=== PATIENT | female | born 1945 ===

== ENCOUNTER 2019-11-29 18:18 | Inpatient (IN) | payer MEDICARE, BC ==
[2019-11-29 21:17] LABS: Glucose,Whole Blood 95 mg/dL (75-99)
--- NOTE | 2019-11-29 23:16 | XR ---
EXAMINATION TYPE: XR chest 1V portable DATE OF EXAM: 11/29/2019 COMPARISON: NONE HISTORY: Short of breath TECHNIQUE: FINDINGS: There is blunting of the costophrenic angles to a mild degree. There is mild infiltrate at the lung bases. Heart is borderline enlarged. There is mild pulmonary congestion. There are chest tawana ds. Bony thorax appears intact. IMPRESSION: Changes in the chest could relate to mild congestive heart failure.
[2019-11-29] MEDS ORDERED: NALOXONE 0.4 MG/ML 1 ML VIAL IV PRN (23:17)
[2019-11-29] MEDS ORDERED: ACETAMINOPHEN TAB 325 MG TAB PO PRN (23:17)
--- NOTE | 2019-11-29 23:56 | P.HPIM ---
History of Present Illness H&P Date: 11/29/19 Chief Complaint: cough SOB I was wearing full PPE during this encounter including N95 mask, face shield, double gloves, gown, and head cover. i maintained 6 feet distance with the patient who verbalized understanding about these precautionary measures. except for during my physical exam where i had to be close to the patient. 74-year-old female with hypertension controlled with medications, mild COPD with occasional use of inhalers not on home oxygen, paroxysmal A. fib on Xarelto Patient is a transfer from [facility] due to necessity as a relief hospital Seems like patient had symptoms for 2-3 weeks now started with coughing headaches and loss of taste sensation patient lives alone. She was tested positive for Covid 10 days ago however yesterday she did not feel well at home and went to the hospital for evaluation she was found to be hypoxic with oxygen saturation in the 80s and had to be started on supplemental oxygen her oxygen requirement was increasing and currently she is on a non breather Patient symptoms consisted of dry cough and shortness of breath. Reported headaches and loss of taste sensation. But denies any body aches denies any fevers denies any chills denies any diarrhea denies any chest pain denies any nausea or vomiting. Patient denies any traveling. Patient denies any recent hospitalization. Patient denies any contact with known Covid patient's. Patient had paperwork sent from [facility] physician to physician transfer was done with Dr. Pat. Pertinent labs are as follows White count 4.4, with lymphopenia 0.7 Hemoglobin 13.3 Platelets 227 Magnesium 2.2 Renal function and liver function unremarkable Pro calcitonin is normal 0.1 Troponins negative C-reactive protein 122 elevated LDH elevated 547 Ferritin elevated 723 Creatine kinase 156 Lactic acid 1.6 Chest x-ray showed bilateral infiltrates in the lower lobes suggestive of atypical pneumonia, with slight obliteration of the costophrenic angles more on the right compared to the left Patient was given Z-Sami and Plaquenil at [facility] Review of Systems Pertinent positives as noted in HPI. All other systems were reviewed and are negative Medications and Allergies Home Medications Medication Instructions Recorded Confirmed Type Aspirin [Adult Low Dose Aspirin EC] 81 mg PO DAILY 11/29/19 11/29/19 History Hydrochlorothiazide 12.5 mg PO DAILY 11/29/19 11/29/19 History Hydroxychloroquine Sulfate 200 mg PO BID 11/29/19 11/29/19 History [Plaquenil] Levothyroxine Sodium 100 mcg PO DAILY 11/29/19 11/29/19 History Ondansetron Odt [Zofran ODT] 8 mg SL Q8H PRN 11/29/19 11/29/19 History Rivaroxaban [Xarelto] 20 mg PO DAILY 11/29/19 11/29/19 History Simvastatin 60 mg PO HS 11/29/19 11/29/19 History Tiotropium Br/Olodaterol HCl 2 puff INHALATION RT-DAILY 11/29/19 11/29/19 History [Stiolto Respimat Inhal [place]] Allergies Allergy/AdvReac Type Severity Reaction Status Date / Time No Known Allergies Allergy Unverified 11/29/19 21:47 Physical Exam Constitutional: No acute distress, conversant, pleasant, currently on nonrebreather Eyes: Anicteric sclerae, moist conjunctiva, Pupils equal round reactive to light ENMT: NC/AT Oropharynx clear, no erythema, or exudates Neck: Supple, FROM, no masses, or JVD Lungs: Good breath sounds bilaterally slightly diminished at lung bases no wheezing or rhonchi Clear to percussion Normal respiratory effort, no accessory muscle use Cardiovascular: Heart regular in rate and rhythm, No murmurs, gallops, or rubs No peripheral edema Abdominal: Soft Nontender, no guarding, rebound or rigidity Abdomen moving with respiration Normoactive bowel sounds No palpable mass No abdominal wall hernia noted Skin: Normal temperature, tone, texture, turgor No induration No subcutaneous nodules No rash, lesions No ulcers Extremities: No digital cyanosis No clubbing Pedal pulses intact and symmetrical Radial pulses intact and symmetrical No calf tenderness Psychiatric: Alert and oriented to person, place and time Appropriate affect fair judgement Neuro Muscles Strength 5/5 in all 4 extremities Sensation to light touch grossly present throughout Cranial nerves II-XII grossly intact No focal sensory deficits Lymphatics: no palpable cervical or supraclavicular , or inguinal lymph nodes Assessment and Plan Assessment: 74-year-old female with controlled hypertension, paroxysmal A. fib on Xarelto, mild COPD uses inhaler as needed occasionally, not on home oxygen. Patient is a transfer from [facility] due to necessity as a relief hospital. Patient tested positive for Covid, patient is admitted to the hospital due to increased oxygen requirement for close monitoring. Patient was started on Pl aquenil and azithromycin at [facility] Admitted to the inpatient with anticipated length of stay more than 2 midnights Plan: acute hypoxic respiratory failure 2/2 viral pneumonia acute viral pneumonia COVID positive chronic conditions P. afib on xarelto COPD , stable hypertension controlled plan monitor closely in ICU supplemental oxygen as needed to keep O2 >92% avoid NIPPV plaquinel zinc PO tylenol for fever D dimer for COVID prognostic evaluation labs reflecting, lymphopenia, elevated Ferritin, CRP, LDH normal PCT, trops avoid azithromycin if QTc >500 resume home meds no IVF , keep patient on negative balance resume HCTZ Preformed a thorough record review from recent hospitalization aat [facility] as in HPI CODE STATUS:full code DVT prophylaxis: on xarelto Discussed with: Patient, ER, RN Anticipated length of stay > than [address]: home A total of 60 minutes was spent on the care of this complex patient more than 50% of the time was spent in counseling and care coordination.
[2019-11-30] MEDS ORDERED: BENZONATATE 100 MG CAP PO PRN (00:30)
[2019-11-30] MEDS ORDERED: FUROSEMIDE 10 MG/ML 2 ML VIAL IV ONE (00:44)
[2019-11-30 05:32] LABS: Basophils % (A) 1 %; Eosinophils % (A) 0 %; HCT 39.3 % (34.0-46.0); HGB 12.6 gm/dL (11.4-16.0); Lymphocytes # (A) 0.6 k/uL (1.0-4.8); Lymphocytes % (A) 12 %; MCH 29.5 pg (25.0-35.0); MCHC 32.2 g/dL (31.0-37.0); MCV 91.7 fL (80.0-100.0); Mean Platelet Volume 8.9; Monocytes # (A) 0.2 k/uL (0-1.0); Monocytes % (A) 4 %; Neutrophils # (A) 3.8 k/uL (1.3-7.7); Neutrophils % (A) 80 %; Platelet Count 231 k/uL (150-450); RBC 4.29 m/uL (3.80-5.40); RDW 13.1 % (11.5-15.5); WBC 4.8 k/uL (3.8-10.6)
[2019-11-30 05:48] LABS: Calcium 9.1 mg/dL (8.4-10.2); Potassium 3.2 mmol/L (3.5-5.1)
[2019-11-30 06:01] LABS: C Reactive Protein 146.6 mg/L (<10.0)
[2019-11-30] MEDS ORDERED: Potassium Replacement Protocol 1 EACH MISC MISCELLANE PRN (06:20)
[2019-11-30] MEDS: LEVOTHYROXINE 100 MCG TAB PO SCH (06:48)
[2019-11-30] MEDS: POTASSIUM CHLORIDE ER 20 MEQ TAB.ER PO SCH ×2 (06:48→09:28)
[2019-11-30] MEDS ORDERED: ALBUTEROL INHALER 60 PUFF/8 GM INHALER (BULK) INHALATION PRN (07:43)
--- NOTE | 2019-11-30 07:50 | XR ---
EXAMINATION TYPE: XR chest 1V portable DATE OF EXAM: 11/30/2019 Comparison: 11/29/2019 Clinical History: 74-year-old female SOB Findings: The heart is normal size. Continued bibasilar and retrocardiac opacities and background mild intersti tial density. Impression: Overall stable exam, mild diffuse interstitial density and bibasilar infiltrates.
[2019-11-30] MEDS ORDERED: IPRATROPIUM 0.5 MG/2.5 ML NEBU INHALATION SCH (08:00)
[2019-11-30] MEDS ORDERED: FORMOTEROL FUMARATE 20 MCG/2 ML NEBU INHALATION SCH (08:00)
[2019-11-30] MEDS ORDERED: ALBUTEROL INHALER 60 PUFF/8 GM INHALER (BULK) INHALATION SCH (08:00)
[2019-11-30] MEDS ORDERED: HYDROCHLOROTHIAZIDE 12.5 MG CAP PO SCH (09:00)
[2019-11-30] MEDS: SYMBICORT 160-4.5 MCG INHALER INHALATION SCH ×2 (09:25→20:29)
[2019-11-30] MEDS: ASPIRIN 81 MG PO SCH (09:28)
[2019-11-30] MEDS: RIVAROXABAN 20 MG TAB PO SCH (09:28)
[2019-11-30] MEDS: HYDROXYCHLOROQUINE SULFATE 200 MG TAB PO SCH ×2 (09:28→22:00)
[2019-11-30] MEDS: ZINC SULFATE 220 MG CAP PO SCH (09:28)
--- NOTE | 2019-11-30 13:13 | P.CNPUL ---
History of Present Illness Consult date: 11/30/19 Reason for consult: pneumonia History of present illness: This is a 74-year-old -[place] female patient who lives in [place]. The patient has history of atrial fibrillation and she has been maintained on Xarelto on long-term basis. The patient felt febrile and had increased cough approximately a week ago. She end up going to [facility] where she was tested and she was confirmed to have positive: 19 infection. The patient was discharged home. However, as the patient became more short of breath and her cough that is worse, the patient presented to ED department at [facility] where she was evaluated and she was placed on high flow oxygen because of her ongoing hypoxemia. The patient's pulse ox apparently was in the low 80s and she was given supplemental oxygen including 100% nonrebreather facemask. The patient got transferred to us for further monitoring and treatment. The patient's white cell count was at 4.4 at time of admission and the patient had a lymphopenia with a lymphocyte level of 0.7. Hemoglobin was at 13.3. Platelet count was 222, LFTs are unremarkable, the troponin was negative, CRP was 122, LDH was 548, ferritin level was 723, CPK was 156 and the lactic acid level was 1.6. Chest x-ray showed bilateral pulmonary infiltrates interstitial changes bilaterally right more than left more so in the lung bases bilaterally. Clinically, despite hypoxemia, the patient seems to be quite stable and she is struggling with her breathing. She is not using some ecchymosis of breathing. She is currently on high flow oxygen at 10 L in addition to 100% on a beta facemasks and pulse ox is around 87-90%. No nausea. No vomiting. No altered mentation. No chest pain. Her cardiac rhythm is still in atrial fibrillation. The patient was started on Plaquenil. She is an ex- smoker. She has history of COPD and she has been maintained on Stiolto on outpatient basis. Review of Systems Constitutional: Reports fever (Currently afebrile and the patient is been afebrile for the past 48 hours), Reports lethargy Eyes: denies as per HPI, denies blurred vision, denies bulging eye, denies decreased vision, denies diplopia, denies discharge, denies dry eye, denies irritation, denies itching, denies pain, denies photophobia, denies loss of peripheral vision, denies loss of vision, denies tunnel vision/blind spots Ears: deny: decreased hearing, ear discharge, earache, tinnitus Ears, nose, mouth and throat: Reports as per HPI Breasts: absent: as per HPI, change in shape, gynecomastia, masses, nipple discharge, pain, skin changes, swelling Cardiovascular: Reports decreased exercise tolerance, Reports dyspnea on exert ion Respiratory: Reports cough, Reports dyspnea Gastrointestinal: Denies abdominal pain, Denies diarrhea, Denies nausea, Denies vomiting Genitourinary: Reports as per HPI Menstruation: Reports as per HPI Musculoskeletal: Reports as per HPI Musculoskeletal: absent: ankle pain, ankle stiffness, ankle swelling Integumentary: Reports as per HPI Neurological: Reports as per HPI Psychiatric: Reports as per HPI Endocrine: Reports as per HPI Hematologic/Lymphatic: Reports as per HPI Allergic/Immunologic: Reports as per HPI Past Medical History Past Medical History: Atrial Fibrillation, COPD, Hypertension History of Any Multi-Drug Resistant Organisms: None Reported Past Surgical History: Hysterectomy, Orthopedic Surgery Additional Past Surgical History / Comment(s): Hand surgery 2005, ASD colsure x2 2007/2012, bilat cataracts removed 2015,thryoid biopsy 2016, thyroidectomy 2018 Smoking Status: Former smoker Medications and Allergies Home Medications Medication Instructions Recorded Confirmed Type Aspirin [Adult Low Dose Aspirin EC] 81 mg PO DAILY 11/29/19 11/29/19 History Hydrochlorothiazide 12.5 mg PO DAILY 11/29/19 11/29/19 History Hydroxychloroquine Sulfate 200 mg PO BID 11/29/19 11/29/19 History [Plaquenil] Levothyroxine Sodium 100 mcg PO DAILY 11/29/19 11/29/19 History Ondansetron Odt [Zofran ODT] 8 mg SL Q8H PRN 11/29/19 11/29/19 History Rivaroxaban [Xarelto] 20 mg PO DAILY 11/29/19 11/29/19 History Simvastatin 60 mg PO HS 11/29/19 11/29/19 History Tiotropium Br/Olodaterol HCl 2 puff INHALATION RT-DAILY 11/29/19 11/29/19 History [Stiolto Respimat Inhal [place]] Allergies Allergy/AdvReac Type Severity Reaction Status Date / Time losartan [From Cozaar] Allergy Rash/Hives Verified 11/30/19 06:40 Physical Exam Vitals: Vital Signs Temp Pulse Resp BP Pulse Ox 11/30/19 07:00 82 18 135/68 96 11/30/19 06:00 87 16 124/62 91 L 11/30/19 05:00 89 16 124/62 93 L 11/30/19 04:00 98.6 F 80 20 104/76 95 11/30/19 03:00 82 17 133/63 97 11/30/19 02:00 82 18 132/56 95 11/30/19 01:00 85 20 118/59 93 L 11/30/19 00:00 98.5 F 82 15 130/61 95 11/29/19 23:00 82 16 128/62 96 11/29/19 22:00 98 18 119/72 91 L 11/29/19 21:55 98.8 F 91 16 119/72 93 L Intake and Output 11/29/19 11/30/19 11/30/19 22:59 06:59 14:59 Output Total 0 570 0 Balance 0 -570 0 Output: Urine 0 570 0 Other: Weight 69.4 kg 69.3 kg Gen. appearance currently the patient 100% nonrebreather facemask and addition to high flow oxygen, nonacute distress Head exam was generally normal. There was no scleral icterus or corneal arcus. Mucous membranes were moist. Neck was supple and without jugular venous distension, thyromegaly, or carotid bruits. Carotids were easily palpable bilaterally. There was no adenopathy. Lungs sounds are diminished and there is crackles at lung bases bilaterally. No wheezes or rhonchi. Cardiac exam revealed the PMI to be normally situated and sized. The rhythm was regular and no extrasystoles were noted during several minutes of auscultation. The first and second heart sounds were normal and the rhythm is irregular consistent with atrial fibrillation and physiologic splitting of the second heart sound was noted. There were no murmurs, rubs, clicks, or gallops. Abdominal exam revealed normal bowel sounds. The abdomen was soft, non-tender, and without masses, organomegaly, or appreciable enlargement of the abdominal aorta. Examination of the extremities revealed easily palpable radial, femoral and pedal pulses. There was no cyanosis, clubbing or edema. Examination of the skin revealed no evidence of significant rashes, suspicious appearing nevi or other concerning lesions. Neurologically the patient is awake and alert and there is no focal neurological deficit and she is able to answer questions appropriately. Results - Laboratory Findings CBC and BMP: 11/30/19 04:58 11/30/19 04:58 PT/INR, D-dimer D-Dimer 1.09 mg/L FEU (<0.60) H 11/30/19 04:58 Abnormal lab findings: Abnormal Labs 11/30/19 11/30/19 11/30/19 04:58 04:58 04:58 Lymphocytes # 0.6 L D-Dimer 1.09 H Potassium 3.2 L Carbon Dioxide 31 H BUN 24 H Lactate Dehydrogenase 1370 H C-Reactive Protein 146.6 H - Diagnostic Findings Chest x-ray: image reviewed Assessment and Plan Plan: 1 acute bilateral COVID 19 pneumonia with secondary ARDS 2 acute hypoxic respiratory failure currently on high-flow oxygen in addition to 100% nonrebreather facemask with a pulse ox achieving above 88% 3 COPD 4 chronic atrial fibrillation 5 hypertension Plan The patient has symptomatic Covid 19 pneumonia with secondary signs of ARDS. The patient will be kept in intensive care unit. The patient was kept on 100% nonrebreather facemask and addition to high flow oxygen. We will do some prone positioning on this patient to improve her oxygenation. We'll be asking this patient to be laying down on her abdomen and monitor oxygenation. Continue Plaquenil. Continue monitoring the fever pattern, LDH, C-reactive protein and the d-dimer was slightly elevated. Replace potassium. Will avoid noninvasive positive pressure ventilation for now. We'll use Ventolin HFA as needed and use Symbicort as maintenance regarding her COPD. Resume outpatient medications. May ultimately required intubation mechanical ventilation at a later stage. We'll monitor her condition very closely. Her condition is critical for now.
[2019-11-30] MEDS ORDERED: PROPOFOL 10 MG/ML 20 ML VIAL IV ONE (19:30)
[2019-11-30] MEDS ORDERED: SUCCINYLCHOLINE CHLORIDE VIAL 200 MG/10 ML VIAL IV ONE (19:30)
[2019-11-30] MEDS: PROPOFOL 1,000 MG in EMPTY BAG 1 BAG IV SCH ×2 (19:35→22:06)
[2019-11-30] MEDS ORDERED: SODIUM CHLORIDE 0.9% 1,000 ML IV ONE (19:58)
[2019-11-30] MEDS ORDERED: CISATRACURIUM 2 MG/ML 5 ML VIAL IV ONE (19:58)
--- NOTE | 2019-11-30 20:11 | XR ---
EXAMINATION TYPE: XR chest 1V portable DATE OF EXAM: 11/30/2019 COMPARISON: 11/30/2019 INDICATION: Intubation difficulty breathing TECHNIQUE: Single frontal view of the chest is obtained. FINDINGS: The heart size is normal. The pulmonary vasculature is normal. There is increasing lung infiltrates in the mid and lower left lung field. Right basilar infiltrate h as slight improvement. The patient has been intubated, the tip of the endotracheal tube is in the proximal right bronchus. T his should be pulled back 4 cm. Report was called to telephone to [facility] ICU at the time of reportin g. Nasogastric tube has been placed the tip in the left upper quadrant of the abdomen. IMPRESSION: 1. Endotracheal tube placement with the tip in the proximal right bronchus at the sanjay. This should be pulled back 4 cm. ICU was notified at the time of reporting. 2. Worsening left lower lung field infiltrate. Right lower lobe infiltrate has some improvement. Find ings can be related to intubation and follow-up exam following repositioning of the endotracheal tube could be performed.
--- NOTE | 2019-11-30 20:19 | P.PN ---
Subjective Progress Note Date: 11/30/19 (delayed charting seen at 1130) Principal diagnosis: shortness of breath Patient is a 74-year-old -[place] female with a past medical history of hypertension, mild COPD, and paroxysmal atrial fibrillation on Xarelto who presented to [facility] emergency department with complaints of coughing, headache, and shortness of breath. She was transferred here due to the covert r elief effort. Initial evaluation consistent with atypical or viral pneumonia with probable covert 19. She had testing done at [facility] which was positive for COVID-19. She was started on Actonel, zinc, and as needed Tylenol. Pulmonary was consulted. Patient seen and examined at bedside. She is still feeling significantly short of breath. She denies significant cough. No nausea, vomiting, or diarrhea. No chest pain. Feeling very fatigued and tired today. Objective - Vital Signs Vital signs: Vital Signs Temp 99.9 F H 11/30/19 16:00 Pulse 89 11/30/19 18:00 Resp 22 11/30/19 18:00 BP 104/58 11/30/19 18:00 Pulse Ox 94 L 11/30/19 18:00 Intake & Output 11/30/19 11/30/19 12/01/19 06:59 18:59 06:59 Output Total 570 0 Balance -570 0 Weight 69.3 kg 69.3 kg Output: Urine 570 0 Other: Voiding Method Bedpan # Voids 0 # Bowel Movements 1 - Exam General: Ill appearing, mild distress, appears at stated age Derm: warm, dry Head: atraumatic, normocephalic, symmetric Eyes: EOMI, no lid lag, anicteric sclera Mouth: no lip lesion, mucus membranes moist Cardiovascular: S1S2 reg, no murmur, positive posterior tibial pulse bilateral, Lungs: Coarse breath sounds bilaterally without active wheezing, 3 word conversational dyspnea, accessory muscle use Abdominal: soft, nontender to palpation, no guarding, no appreciable org anomegaly Ext: no gross muscle atrophy, no edema, no contractures Neuro: CN II-XI grossly intact, no focal neuro deficits Psych: Alert, oriented, appropriate affect - Labs CBC & Chem 7: 11/30/19 04:58 11/30/19 04:58 Labs: Abnormal Lab Results - Last 24 Hours (Table) 11/30/19 11/30/19 11/30/19 Range/Units 04:58 04:58 04:58 Lymphocytes # 0.6 L (1.0-4.8) k/uL D-Dimer 1.09 H (<0.60) mg/L FEU Potassium 3.2 L (3.5-5.1) mmol/L Carbon Dioxide 31 H (22-30) mmol/L BUN 24 H (7-17) mg/dL Lactate Dehydrogenase 1370 H (313-618) U/L C-Reactive Protein 146.6 H (<10.0) mg/L Assessment and Plan Assessment: Bilateral pneumonia secondary to coated with ARDS and acute hypoxic respiratory failure -Continue with Plaquenil, Zithromax -Symbicort, albuterol inhaler -Continue with supplemental O2, I suspect this patient likely will end up with intubation -Follow d-dimer, LDH, CRP, CK, and troponin -Follow chest x-ray until clear -Pulmonary critical care recommendations appreciated -Follow QT interval Hypothyroidism -Synthroid Hypertension, controlled -Hydrochlorothiazide -Follow blood pressures Paroxysmal atrial fibrillation -Not on rate controlling medications -Continue with Xarelto COPD without acute exacerbation -Bronchodilators -Consider steroids if condition worsens Dyslipidemia -Statin therapy DVT prophylaxis: Xarelto Discussed with: PAtient Anticipated discharge: 5-[address]: [facility] A total of 35 minutes was spent on the care of this complex patient more than 50% of the time was spent in counseling and care coordination.
[2019-11-30] MEDS: NOREPINEPHRINE 4 MG in SODIUM CHLORIDE 0.9% 250 ML IV SCH (20:20)
[2019-11-30] MEDS: fentaNYL (PF) 1,000 MCG in SODIUM CHLORIDE 0.9% 80 ML IV SCH (20:20)
[2019-11-30 20:41] LABS: ABG Base Excess 1.4 mmol/L; ABG HCO3 24 mmol/L (21-25); ABG PCO2 28 mmHg (35-45); ABG PH 7.54 (7.35-7.45); ABG PO2 211 mmHg (83-108); ABG TCO2 25 mmol/L (19-24); Allen Test Performed? Yes
[2019-11-30] MEDS ORDERED: ATORVASTATIN 10 MG TAB PO SCH (21:00)
[2019-11-30] MEDS ORDERED: CISATRACURIUM 2 MG/ML 5 ML VIAL IV PRN (21:16)
[2019-11-30] MEDS: SODIUM CHLORIDE 0.9% 1,000 ML IV SCH (21:30)
[2019-11-30] MEDS: CHLORHEXIDINE GLUCONATE 15 ML CUP MUCOUS MEM SCH (22:00)
[2019-11-30 23:08] LABS: Potassium 3.9 mmol/L (3.5-5.1)
--- NOTE | 2019-11-30 23:17 | P.CONS ---
History of Present Illness - Reason for Consult Consult date: 11/30/19 COVID19 pneumonia Requesting physician: Dimitris Singleton - Chief Complaint shortness of breath and cough x days - History of Present Illness Patient is a 74-year-old female with a past medical significant for COPD paroxysmal A. fib presented to [facility] with chief complaints of coughing headache loss of the sensation symptom has been going on for about 2 to 3 weeks currently the patient tested positive for cocaine and intended to go however the day before presentation the hospital patient went to the hospital because of feeling short of breath she was noticed to be hypoxic with O2 sats in the 80s patient required supplemental oxygen on a nonrebreather patient also complaining of a dry cough moderate intensity no sputum production no chest pain no nausea no vomiting no abdominal pain or any diarrhea because of the symptom patient has been transferred to this facility for ICU care and management of underlying COVID-19 pneumonia patient did have a chest x-ray done at the outside facility showed bilateral infiltrate lower lobe suggestive of atypical pneumonia chest x-ray repeated here left-sided shows a change related to congestive heart failure with bilateral infiltrate patient has been running low-grade fever of 99.9 and she has been satting 89 to 98% on 100% nonrebreather patient did have a normal white count but looks leukopenic with a lymphocytic count of 0.6 LDH 1370 CRP 146.6 patient has been continued on Plaquenil and infectious disease was consulted for further recommendation about antibiotic therapy. Review of Systems Positive point has been mentioned in HPI rest of the systems are negative Past Medical History Past Medical History: Atrial Fibrillation, COPD, Hypertension History of Any Multi-Drug Resistant Organisms: None Reported Past Surgical History: Hysterectomy, Orthopedic Surgery Additional Past Surgical History / Comment(s): Hand surgery 2005, ASD colsure x2 , bilat cataracts removed 2015,thryoid biopsy 2016, thyroidectomy 2018 Smoking Status: Former smoker Medications and Allergies Home Medications Medication Instructions Recorded Confirmed Type Aspirin [Adult Low Dose Aspirin EC] 81 mg PO DAILY 11/29/19 11/29/19 History Hydrochlorothiazide 12.5 mg PO DAILY 11/29/19 11/29/19 History Hydroxychloroquine Sulfate 200 mg PO BID 11/29/19 11/29/19 History [Plaquenil] Levothyroxine Sodium 100 mcg PO DAILY 11/29/19 11/29/19 History Ondansetron Odt [Zofran ODT] 8 mg SL Q8H PRN 11/29/19 11/29/19 History Rivaroxaban [Xarelto] 20 mg PO DAILY 11/29/19 11/29/19 History Simvastatin 60 mg PO HS 11/29/19 11/29/19 History Tiotropium Br/Olodaterol HCl 2 puff INHALATION RT-DAILY 11/29/19 11/29/19 History [Stiolto Respimat Inhal [place]] Allergies Allergy/AdvReac Type Severity Reaction Status Date / Time losartan [From [facility]] Allergy Rash/Hives Verified 11/30/19 06:40 Physical Exam Vitals: Vital Signs Temp Pulse Resp BP Pulse Ox 11/30/19 14:00 91 15 91 L 11/30/19 13:00 90 22 96 11/30/19 12:00 99.4 F 89 25 H 121/82 89 L 11/30/19 11:00 86 23 99/80 99 11/30/19 10:00 98 24 126/75 87 L 11/30/19 09:00 102 H 24 124/68 82 L 11/30/19 08:00 99.0 F 83 22 123/65 96 11/30/19 07:00 82 18 135/68 96 11/30/19 06:00 87 16 124/62 91 L 11/30/19 05:00 89 16 124/62 93 L 11/30/19 04:00 98.6 F 80 20 104/76 95 11/30/19 03:00 82 17 133/63 97 11/30/19 02:00 82 18 132/56 95 11/30/19 01:00 85 20 118/59 93 L 11/30/19 00:00 98.5 F 82 15 130/61 95 11/29/19 23:00 82 16 128/62 96 11/29/19 22:00 98 18 119/72 91 L 11/29/19 21:55 98.8 F 91 16 119/72 93 L Intake and Output 11/30/19 11/30/19 11/30/19 06:59 14:59 22:59 Output Total 570 0 Balance -570 0 Output: Urine 570 0 Other: Voiding Method Bedpan # Voids 1 # Bowel Movements 1 Weight 69.3 kg 69.3 kg GENERAL DESCRIPTION: Elderly female lying in bed, no distress. No tachypnea or accessory muscle of respiration use. HEENT: Shows Pallor , no scleral icterus. Oral mucous membrane is dry. NECK: Trachea central, no thyromegaly. LUNGS: Unlabored breathing. Decreased intensity of breath sounds. No wheeze or crackle. HEART: S1, S2, regular rate and rhythm. ABDOMEN: Soft, no tenderness , guarding or rigidity EXTREMITIES: No edema of feet. SKIN: No rash, no masses palpable. NEUROLOGICAL: The patient is awake, alert, oriented x3, mood and affect normal. Results CBC & Chem 7: 11/30/19 04:58 11/30/19 22:22 Labs: Abnormal Lab Results - Last 24 Hours (Table) 11/30/19 11/30/19 11/30/19 Range/Units 04:58 04:58 04:58 Lymphocytes # 0.6 L (1.0-4.8) k/uL D-Dimer 1.09 H (<0.60) mg/L FEU Potassium 3.2 L (3.5-5.1) mmol/L Carbon Dioxide 31 H (22-30) mmol/L BUN 24 H (7-17) mg/dL Lactate Dehydrogenase 1370 H (313-618) U/L C-Reactive Protein 146.6 H (<10.0) mg/L Assessment and Plan Assessment: 1-patient with acute COVID-19 her pneumonia in this patient who did have evidence of bilateral infiltrate did have hypoxemia cough lymphopenia elevated LDH and CRP not currently same getting worse over the last few days and did have a positive test about 10 days ago concern for impending respiratory failure (1) COVID-19 Current Visit: Yes Status: Acute Code(s): U07.1 - COVID-19 SNOMED Code(s): 808007356 Plan: 1-patient continued on Plaquenil 200 mg twice a day to finish a total of 5-day course of therapy 2-may benefit from a low-dose steroid to prevent full-blown ARDS 3-continue with respiratory support and droplet isolation We will follow on clinical condition and cultures to further adjust medication if needed Thank you for this consultation we will follow the patient along with you Time with Patient: Greater than 30
[2019-12-01 00:30] LABS: Appearance,Urine Cloudy (Clear); Bacteria,Urine Few /hpf; Bilirubin,Urine Negative (Negative); Blood,Urine Small (Negative); Cellular Casts,Urine 1 /lpf (0); Color,Urine Yellow; Glucose,Urine (UA) Negative (Negative); Hyaline Casts,Urine 9 /lpf (0-2); Ketones,Urine 1+ (Negative); Leukocyte Esterase,Urine Small (Negative); Mucus,Urine Occasional /hpf; Nitrite,Urine Negative (Negative); PH, Urine 6.5 (5.0-8.0); Protein,Urine 2+ (Negative); RBC,Urine 23 /hpf (0-5); Specific Gravity,Urine 1.023 (1.001-1.035); Squamous Epithelial Cell,Urine 3 /hpf (0-4); WBC,Urine 29 /hpf (0-5)
[2019-12-01] MEDS: PROPOFOL 1,000 MG in EMPTY BAG 1 BAG IV SCH ×7 (01:32→20:19)
[2019-12-01 02:18] LABS: Glucose,Whole Blood 104 mg/dL (75-99)
[2019-12-01 05:10] LABS: ABG Base Excess -1.7 mmol/L; ABG HCO3 24 mmol/L (21-25); ABG Oxygen Saturation 95.3 % (94-97); ABG PCO2 42 mmHg (35-45); ABG PH 7.36 (7.35-7.45); ABG PO2 82 mmHg (83-108); ABG TCO2 25 mmol/L (19-24); Allen Test Performed? Yes
[2019-12-01 05:22] LABS: Basophils % (A) 0 %; Eosinophils % (A) 0 %; HCT 36.7 % (34.0-46.0); HGB 11.6 gm/dL (11.4-16.0); Lymphocytes # (A) 0.4 k/uL (1.0-4.8); Lymphocytes % (A) 7 %; MCH 29.3 pg (25.0-35.0); MCHC 31.5 g/dL (31.0-37.0); MCV 92.8 fL (80.0-100.0); Mean Platelet Volume 8.8; Monocytes # (A) 0.3 k/uL (0-1.0); Monocytes % (A) 4 %; Neutrophils # (A) 5.8 k/uL (1.3-7.7); Neutrophils % (A) 86 %; Platelet Count 269 k/uL (150-450); RBC 3.96 m/uL (3.80-5.40); RDW 13.4 % (11.5-15.5); WBC 6.8 k/uL (3.8-10.6)
[2019-12-01 05:56] LABS: Albumin 3.1 g/dL (3.5-5.0); Calcium 8.3 mg/dL (8.4-10.2); Potassium 3.5 mmol/L (3.5-5.1); Total Bilirubin 0.9 mg/dL (0.2-1.3); Total Protein 6.3 g/dL (6.3-8.2)
[2019-12-01] MEDS: fentaNYL (PF) 1,000 MCG in SODIUM CHLORIDE 0.9% 80 ML IV SCH ×3 (06:11→20:38)
[2019-12-01] MEDS: LEVOTHYROXINE 100 MCG TAB PO SCH (06:12)
[2019-12-01] MEDS: POTASSIUM BICARBONATE/CIT AC 20 MEQ TABLET.EFF NG-TUBE SCH ×2 (06:27→08:29)
--- NOTE | 2019-12-01 07:46 | XR ---
EXAMINATION TYPE: XR chest 1V portable DATE OF EXAM: 12/01/2019 Comparison: 11/30/2019 Clinical History: 74-year-old female Tube placement Findings: ET tube is satisfactory. NG tube sidehole is just below the GE junction level and could be further ad vanced by 2 to 3 cm further into the stomach. Findings medium interstitial densities in the mid to lo wer lungs persist. No pleural effusion. Impression: Interstitial infiltrates persist in the mid and lower lungs. Consider advancement of the NG tube by 2 to 3 cm further into the stomach.
[2019-12-01] MEDS: SYMBICORT 160-4.5 MCG INHALER INHALATION SCH (08:03)
[2019-12-01] MEDS: ASPIRIN 81 MG PO SCH (08:29)
[2019-12-01] MEDS: HYDROXYCHLOROQUINE SULFATE 200 MG TAB PO SCH ×2 (08:29→20:33)
[2019-12-01] MEDS: CHLORHEXIDINE GLUCONATE 15 ML CUP MUCOUS MEM SCH ×2 (08:29→20:18)
[2019-12-01] MEDS: ZINC SULFATE 220 MG CAP PO SCH (08:29)
[2019-12-01] MEDS: RIVAROXABAN 20 MG TAB PO SCH (08:29)
--- NOTE | 2019-12-01 11:45 | XR ---
EXAMINATION TYPE: XR chest 1V portable DATE OF EXAM: 12/01/2019 COMPARISON: 12/01/2019 HISTORY: Central line placement TECHNIQUE: Single frontal view of the chest is obtained. FINDINGS: Left-sided central line has been placed from a subclavian approach terminating in the supe rior cavoatrial junction, appropriately placed. Endotracheal tube and enteric tube appear satisfactor y in position. Bibasilar interstitial airspace disease is redemonstrated with biapical lucency. Cardi a mediastinal silhouette is stable. Diffuse osseous demineralization. IMPRESSION: 1. Interval insertion of an appropriately placed left subclavian approach central venous catheter ter minating in the distal able atrial junction. 2. Unchanged bibasilar reticular interstitial opacities.
[2019-12-01] MEDS ORDERED: SODIUM CHLORIDE 0.9% 500 ML 500 ML IV ONE (14:21)
[2019-12-01] MEDS: SODIUM CHLORIDE 0.9% 1,000 ML IV SCH (14:23)
--- NOTE | 2019-12-01 15:02 | P.PN ---
Subjective Progress Note Date: 12/01/19 This is a 74-year-old -[place] female patient who lives in [place]. The patient has history of atrial fibrillation and she has been maintained on Xarelto on long-term basis. The patient felt febrile and had increased cough approximately a week ago. She end up going to [facility] where she was tested and she was confirmed to have positive: 19 infection. The patient was discharged home. However, as the patient became more short of breath and her cough that is worse, the patient presented to ED department at [facility] where she was evaluated and she was placed on high flow oxygen because of her ongoing hypoxemia. The patient's pulse ox apparently was in the low 80s and she was given supplemental oxygen including 100% nonrebreather facemask. The patient got transferred to us for further monitoring and treatment. The patient's white cell count was at 4.4 at time of admission and the patient had a lymphopenia with a lymphocyte level of 0.7. Hemoglobin was at 13.3. Platelet count was 222, LFTs are unremarkable, the troponin was negative, CRP was 122, LDH was 548, ferritin level was 723, CPK was 156 and the lactic acid level was 1.6. Chest x-ray showed bilateral pulmonary infiltrates interstitial changes bilaterally right more than left more so in the lung bases bilaterally. Clinically, despite hypoxemia, the patient seems to be quite stable and she is struggling with her breathing. She is not using some ecchymosis of breathing. She is currently on high flow oxygen at 10 L in addition to 100% on a beta facemasks and pulse ox is around 87-90%. No nausea. No vomiting. No altered mentation. No chest pain. Her cardiac rhythm is still in atrial fibrillation. The patient was started on Plaquenil. She is an ex- smoker. She has history of COPD and she has been maintained on Stiolto on outpatient basis. On 12/01/2019 and seeing this patient for a follow-up. As mentioned earlier the patient was Hospital as for an acute Covid 19 pneumonia. The patient was on 100% nonrebreather facemask. Yesterday evening, the patient's condition de compensated. As such, the patient had to be intubated and placed on a mechanical ventilator. This was done by [facility] and intubation process was successful. This morning the patient is being seen for a follow-up. The patient currently is on assist-control mode rate of 20 with tidal volume of 350 and FiO2 of 40% with a PEEP of 15. The patient is on propofol which is running at 75 g per KG pigmented and fentanyl drip is running in 1 g per KG per hour. Levothroid has also be used at a dose of 0.04 g per KG pigmented for hemodynamic support. The patient will be started on enteral feeding for nutrition support. Do not lung cancer and a triple-lumen cath was also inserted. Note that the patient is afebrile today. The patient had a T-max of 99.9. The LDH still elevated at 1140. The d-dimer is at 1.19. Blood gases from today shows a pH of 7.36 with a pCO2 of 42 and pO2 of 82. Chest x-ray shows interval insertion of the ET tube and there is bilateral basilar reticular nodular infiltrates and some increased infiltration of the upper lobes bilaterally. The patient's net fluid balance is +1.8 L over the past 24 hours. She'll be started on enteral feeding for nutritional support. She is already on a combination of zinc sulfate and Plaquenil. She was also maintained on antico agulation with Xarelto regarding her chronic atrial fibrillation. Objective - Vital Signs Vital signs: Vital Signs Temp 98.1 F 12/01/19 12:00 Pulse 94 12/01/19 13:00 Resp 21 12/01/19 13:00 BP 95/63 12/01/19 13:00 Pulse Ox 97 12/01/19 13:00 Intake & Output 11/30/19 12/01/19 12/01/19 18:59 06:59 18:59 Intake Total 2171.439 631.618 Output Total 0 325 120 Balance 0 1846.439 511.618 Weight 69.3 kg 72.4 kg 72.4 kg Intake: IV 1750 375 Sodium Chloride 0.9% 1, 750 375 000 ml @ 75 mls/hr IV . [id number] [facility] Rx#:[id number] Sodium Chloride 0.9% 1, 1000 000 ml @ 999 mls/hr IV . Q1H1M [facility] Rx#:[id number] Intake, IV Titration 421.439 256.618 Amount Norepinephrine 4 mg In 96.767 Sodium Chloride 0.9% 250 ml @ 0.05 MCG/KG/MIN 13. 202 mls/hr IV .[id number] [facility] Rx#:[id number] Propofol 1,000 mg In 256.411 256.618 Empty Bag 1 bag @ Titrate IV .Q0M [facility] Rx#: [id number] fentaNYL (PF) 1,000 mcg 68.261 In Sodium Chloride 0.9% 80 ml @ 1 MCG/KG/HR 6.93 mls/hr IV .[id number] [facility] Rx #:[id number] Output: Urine 0 325 120 Other: Voiding Method Bedpan Indwelling Catheter Indwelling Catheter # Voids 0 # Bowel Movements 1 - Exam Gen. appearance currently the patient is calm comfortable not to this is intubated on a mechanical ventilator. Orogastric and orotracheal tube are both in place. The patient has a left subclavian triple catheter in place. Head exam was generally normal. There was no scleral icterus or corneal arcus. Mucous membranes were moist. Neck was supple and without jugular venous distension, thyromegaly, or carotid bruits. Carotids were easily palpable bilaterally. There was no adenopathy. Lungs sounds are diminished and there is crackles at lung bases bilaterally. No wheezes or rhonchi. Cardiac exam revealed the PMI to be normally situated and sized. The rhythm was regular and no extrasystoles were noted during several minutes of auscultation. The first and second heart sounds were normal and the rhythm is irregular consistent with atrial fibrillation and physiologic splitting of the second heart sound was noted. There were no murmurs, rubs, clicks, or gallops. Abdominal exam revealed normal bowel sounds. The abdomen was soft, non-tender, and without masses, organomegaly, or appreciable enlargement of the abdominal aorta. Examination of the extremities revealed easily palpable radial, femoral and pedal pulses. There was no cyanosis, clubbing or edema. Examination of the skin revealed no evidence of significant rashes, suspicious appearing nevi or other concerning lesions. Neurologically the patient is well sedated and calm and comfortable and she withdraws to painful stimulation. - Labs CBC & Chem 7: 12/01/19 04:46 12/01/19 04:46 Labs: Abnormal Lab Results - Last 24 Hours (Table) 11/29/19 11/30/19 12/01/19 Range/Units 23:30 20:39 02:16 Lymphocytes # (1.0-4.8) k/uL D-Dimer (<0.60) mg/L FEU ABG pH 7.54 H (7.35-7.45) ABG pCO2 28 L (35-45) mmHg ABG pO2 211 H (83-108) mmHg ABG Total CO2 25 H (19-24) mmol/L ABG O2 Saturation 100.0 H (94-97) % BUN (7-17) mg/dL Glucose (74-99) mg/dL POC Glucose (mg/dL) 104 H (75-99) mg/dL Calcium (8.4-10.2) mg/dL AST (14-36) U/L Lactate Dehydrogenase (313-618) U/L Albumin (3.5-5.0) g/dL Urine Appearance Cloudy H (Clear) Urine Protein 2+ H (Negative) Urine Ketones 1+ H (Negative) Urine Blood Small H (Negative) Ur Leukocyte Esterase Small H (Negative) Urine RBC 23 H (0-5) /hpf Urine WBC 29 H (0-5) /hpf Urine Bacteria Few H (None) /hpf Hyaline Casts 9 H (0-2) /lpf Urine Mucus Occasional H (None) /hpf 12/01/19 12/01/19 12/01/19 Range/Units 04:46 04:46 04:46 Lymphocytes # 0.4 L (1.0-4.8) k/uL D-Dimer 1.19 H (<0.60) mg/L FEU ABG pH (7.35-7.45) ABG pCO2 (35-45) mmHg ABG pO2 (83-108) mmHg ABG Total CO2 (19-24) mmol/L ABG O2 Saturation (94-97) % BUN 27 H (7-17) mg/dL Glucose 105 H (74-99) mg/dL POC Glucose (mg/dL) (75-99) mg/dL Calcium 8.3 L (8.4-10.2) mg/dL AST 49 H (14-36) U/L Lactate Dehydrogenase 1140 H (313-618) U/L Albumin 3.1 L (3.5-5.0) g/dL Urine Appearance (Clear) Urine Protein (Negative) Urine Ketones (Negative) Urine Blood (Negative) Ur Leukocyte Esterase (Negative) Urine RBC (0-5) /hpf Urine WBC (0-5) /hpf Urine Bacteria (None) /hpf Hyaline Casts (0-2) /lpf Urine Mucus (None) /hpf 12/01/19 Range/Units 05:02 Lymphocytes # (1.0-4.8) k/uL D-Dimer (<0.60) mg/L FEU ABG pH (7.35-7.45) ABG pCO2 (35-45) mmHg ABG pO2 82 L (83-108) mmHg ABG Total CO2 25 H (19-24) mmol/L ABG O2 Saturation (94-97) % BUN (7-17) mg/dL Glucose (74-99) mg/dL POC Glucose (mg/dL) (75-99) mg/dL Calcium (8.4-10.2) mg/dL AST (14-36) U/L Lactate Dehydrogenase (313-618) U/L Albumin (3.5-5.0) g/dL Urine Appearance (Clear) Urine Protein (Negative) Urine Ketones (Negative) Urine Blood (Negative) Ur Leukocyte Esterase (Negative) Urine RBC (0-5) /hpf Urine WBC (0-5) /hpf Urine Bacteria (None) /hpf Hyaline Casts (0-2) /lpf Urine Mucus (None) /hpf Microbiology - Last 24 Hours (Table) 12/01/19 00:23 Gram Stain - Preliminary Sputum Sputum Culture - Preliminary 11/29/19 23:30 Urine Culture - Preliminary Urine,Voided Assessment and Plan Plan: 1 acute Covid 19 pneumonia with secondary hypoxic respiratory failure/ARDS. The patient was in the 100% nonrebreather facemask and the patient decompensated overnight and the patient had to be intubated and placed on a mechanical ventilator. This is a ventilator changes of the Doppler. The patient is currently sedated with a combination of propofol and fentanyl. She did encounter some hypotension for which she is on low-dose norepinephrine infusion for blood pressure support. 2 acute hypoxic respiratory failure and the patient is currently intubated on a mechanical ventilator. 3 low-grade fever 4 COPD 5 hypertension 6 chronic atrial fibrillation Plan Wean off pressors and discontinue as long as the mean arterial pressures above 65. Continue vent support no ventilator changes will be done today. The patient will be kept in a PEEP of 15 with an FiO2 of 40%. Discontinue the Lipitor Discontinue the Tessalon Perles Continue Plaquenil and zinc sulfate combination Start the patient on enteral feeding for nutritional support Established triple-lumen catheter not lying catheters Gentle hydration Monitor fever pattern Monitored in telemetry markers including LDH and C-reactive protein Condition is critical. We'll continue to follow. We'll contact the family and [place] and inform them of the above-mentioned changes. This induration was on a more than 30 minutes excluding time to do any procedures. Time with Patient: Greater than 30
--- NOTE | 2019-12-01 15:04 | P.PCN ---
Date of Procedure: 12/01/19 Preoperative Diagnosis: Acute Covid 19 pneumonia, acute hypoxic respiratory failure Postoperative Diagnosis: Same Procedure(s) Performed: Insertion of a central line catheter and an arterial line catheter Anesthesia: local Surgeon: Bartolo Lagunas Estimated Blood Loss (ml): 0 Pathology: none sent Condition: critical Disposition: ICU Operative Findings: Indication: Hemodynamic monitoring/Intravenous access. A time-out was completed verifying correct patient, procedure, site, positioning, and implant(s) or special equipment if applicable. The patient was placed in a dependent position appropriate for central line placement based on the vein to be cannulated. The patient left shoulder was prepped and draped in sterile fashion. 1% Lidocaine was used to anesthetize the surrounding skin area. A triple lumen 9F Cordis catheter was introduced into the left subclavian vein using Seldinger technique. The catheter was threaded smoothly over the guide wire and appropriate blood return was obtained. Each lumen of the catheter was evacuated of air and flushed with sterile saline. The catheter was then sutured in place to the skin and a sterile dressing applied. Perfusion to the extremity distal to the point of catheter insertion was checked and found to be adequate. The patient tolerated the procedure well and there were no complications. Indication: Hemodynamic monitoring. A time-out was completed verifying correct patient, procedure, site, positionin g, and implant(s) or special equipment if applicable. Allens test was performed to ensure adequate perfusion. The patients left wrist was prepped and draped in sterile fashion. 1% Lidocaine was used to anesthetize the area. An 18G Arrow arterial line was introduced into the radial artery. The catheter was threaded over the guide wire and the needle was removed with appropriate pulsatile blood return. Blood loss was minimal. The catheter was then sutured in place to the skin and a sterile dressing applied. Perfusion to the extremity distal to the point of catheter insertion was checked and found to be adequate. The patient tolerated the procedure well and there were no complications.
--- NOTE | 2019-12-01 17:02 | P.PN ---
Subjective Progress Note Date: 12/01/19 (delayed charting seen at 0900) Principal diagnosis: shortness of breath Patient is a 74-year-old -[place] female with a past medical history of hypertension, mild COPD, and paroxysmal atrial fibrillation on Xarelto who presented to [facility] emergency department with complaints of coughing, headache, and shortness of breath. She was transferred here due to the covert r elief effort. Initial evaluation consistent with atypical or viral pneumonia with probable covert 19. She had testing done at [facility] which was positive for COVID-19. She was started on hydroxychloroquine, zinc, and as needed Tylenol. Pulmonary was consulted. Her O2 requirement continued to increase. Chest x-ray consistent with pneumonia/ARDS picture. We had a long discussion she was okay with elective intubation. She was intubated on the afternoon of 11/30/2019. She did require propofol, fentanyl, norepinephrine, and antibiotics. She has required increasing peep up to 14. Patient seen and examined at bedside. Stated, intubated, and paralyzed on vent. Per nursing no acute events overnight. Objective - Vital Signs Vital signs: Vital Signs Temp 98.1 F 12/01/19 16:00 Pulse 93 12/01/19 16:00 Resp 20 12/01/19 16:00 BP 113/61 12/01/19 16:00 Pulse Ox 99 12/01/19 16:00 Intake & Output 11/30/19 12/01/19 12/01/19 18:59 06:59 18:59 Intake Total 2171.439 1506.618 Output Total 0 325 210 Balance 0 5882.847 5897.618 Weight 69.3 kg 72.4 kg 72.4 kg Intake: IV 1750 750 Sodium Chloride 0.9% 1, 750 750 000 ml @ 75 mls/hr IV . [id number] [facility] Rx#:[id number] Sodium Chloride 0.9% 1, 1000 000 ml @ 999 mls/hr IV . Q1H1M [facility] Rx#:[id number] Intake, IV Titration 421.439 756.618 Amount Norepinephrine 4 mg In 96.767 Sodium Chloride 0.9% 250 ml @ 0.05 MCG/KG/MIN 13. 202 mls/hr IV .[id number] [facility] Rx#:[id number] Propofol 1,000 mg In 256.411 256.618 Empty Bag 1 bag @ Titrate IV .Q0M [facility] Rx#: [id number] Sodium Chloride 0.9% 500 500 ml 500 ml @ 999 mls/hr IV .Q31M [facility] Rx#:[id number] fentaNYL (PF) 1,000 mcg 68.261 In Sodium Chloride 0.9% 80 ml @ 1 MCG/KG/HR 6.93 mls/hr IV .[id number] [facility] Rx #:[id number] Output: Urine 0 325 210 Other: Voiding Method Bedpan Indwelling Catheter Indwelling Catheter # Voids 0 # Bowel Movements 1 - Exam General: Ill appearing, no distress distress, appears at stated age Derm: warm, dry Head: atraumatic, normocephalic, symmetric Eyes: No conjunctival injection, no lid lesion anicteric sclera Mouth: no lip lesion, appears dry, ET tube in place Cardiovascular: S1S2 reg, no murmur, positive posterior tibial pulse bilateral, Lungs: Coarse breath sounds bilaterally, no accessory muscle use, on vent Abdominal: soft, no appreciable organomegaly Ext: no gross muscle atrophy, no edema, no contractures Neuro: chemically Paralyzed Psych: Sedated - Labs CBC & Chem 7: 12/01/19 04:46 12/01/19 04:46 Labs: Abnormal Lab Results - Last 24 Hours (Table) 11/29/19 11/30/19 12/01/19 Range/Units 23:30 20:39 02:16 Lymphocytes # (1.0-4.8) k/uL D-Dimer (<0.60) mg/L FEU ABG pH 7.54 H (7.35-7.45) ABG pCO2 28 L (35-45) mmHg ABG pO2 211 H (83-108) mmHg ABG Total CO2 25 H (19-24) mmol/L ABG O2 Saturation 100.0 H (94-97) % BUN (7-17) mg/dL Glucose (74-99) mg/dL POC Glucose (mg/dL) 104 H (75-99) mg/dL Calcium (8.4-10.2) mg/dL AST (14-36) U/L Lactate Dehydrogenase (313-618) U/L Albumin (3.5-5.0) g/dL Urine Appearance Cloudy H (Clear) Urine Protein 2+ H (Negative) Urine Ketones 1+ H (Negative) Urine Blood Small H (Negative) Ur Leukocyte Esterase Small H (Negative) Urine RBC 23 H (0-5) /hpf Urine WBC 29 H (0-5) /hpf Urine Bacteria Few H (None) /hpf Hyaline Casts 9 H (0-2) /lpf Urine Mucus Occasional H (None) /hpf 12/01/19 12/01/19 12/01/19 Range/Units 04:46 04:46 04:46 Lymphocytes # 0.4 L (1.0-4.8) k/uL D-Dimer 1.19 H (<0.60) mg/L FEU ABG pH (7.35-7.45) ABG pCO2 (35-45) mmHg ABG pO2 (83-108) mmHg ABG Total CO2 (19-24) mmol/L ABG O2 Saturation (94-97) % BUN 27 H (7-17) mg/dL Glucose 105 H (74-99) mg/dL POC Glucose (mg/dL) (75-99) mg/dL Calcium 8.3 L (8.4-10.2) mg/dL AST 49 H (14-36) U/L Lactate Dehydrogenase 1140 H (313-618) U/L Albumin 3.1 L (3.5-5.0) g/dL Urine Appearance (Clear) Urine Protein (Negative) Urine Ketones (Negative) Urine Blood (Negative) Ur Leukocyte Esterase (Negative) Urine RBC (0-5) /hpf Urine WBC (0-5) /hpf Urine Bacteria (None) /hpf Hyaline Casts (0-2) /lpf Urine Mucus (None) /hpf 12/01/19 Range/Units 05:02 Lymphocytes # (1.0-4.8) k/uL D-Dimer (<0.60) mg/L FEU ABG pH (7.35-7.45) ABG pCO2 (35-45) mmHg ABG pO2 82 L (83-108) mmHg ABG Total CO2 25 H (19-24) mmol/L ABG O2 Saturation (94-97) % BUN (7-17) mg/dL Glucose (74-99) mg/dL POC Glucose (mg/dL) (75-99) mg/dL Calcium (8.4-10.2) mg/dL AST (14-36) U/L Lactate Dehydrogenase (313-618) U/L Albumin (3.5-5.0) g/dL Urine Appearance (Clear) Urine Protein (Negative) Urine Ketones (Negative) Urine Blood (Negative) Ur Leukocyte Esterase (Negative) Urine RBC (0-5) /hpf Urine WBC (0-5) /hpf Urine Bacteria (None) /hpf Hyaline Casts (0-2) /lpf Urine Mucus (None) /hpf Microbiology - Last 24 Hours (Table) 12/01/19 00:23 Gram Stain - Preliminary Sputum Sputum Culture - Preliminary 11/29/19 23:30 Urine Culture - Preliminary Urine,Voided Assessment and Plan Assessment: Bilateral pneumonia secondary to COVID 19 with ARDS and acute hypoxic respiratory failure requiring intubation -Continue with Plaquenil -Symbicort, albuterol inhaler -Vent management per critical care -Follow d-dimer, LDH, CRP, CK, and troponin -Follow chest x-ray until clear -Pulmonary critical care recommendations appreciated -Follow QT interval -Gentle IV fluids Hypotension secondary to medications -Wean the Levophed as able -No signs of septic shock Hypothyroidism -Synthroid Hypertension, controlled -Hydrochlorothiazide -Follow blood pressures Paroxysmal atrial fibrillation -Not on rate controlling medications -Continue with Xarelto COPD without acute exacerbation -Bronchodilators -Consider steroids Dyslipidemia -Statin therapy DVT prophylaxis: Xarelto Discussed with: Patient Anticipated discharge: undetermined Anticipated discharge place: undetermined A total of 25 minutes was spent on the care of this complex patient more than 50% of the time was spent in counseling and care coordination.
[2019-12-01 17:51] LABS: Glucose,Whole Blood 121 mg/dL (75-99)
[2019-12-01] MEDS: INSULIN ASPART (NovoLOG) 100 UNIT/ML VIAL SQ SCH (18:08)
[2019-12-01] MEDS: NOREPINEPHRINE 4 MG in SODIUM CHLORIDE 0.9% 250 ML IV SCH (18:09)
--- NOTE | 2019-12-01 23:18 | PN ---
PROGRESS NOTE DATE OF SERVICE: 12/01/2019 REASON FOR FOLLOWUP: Acute COVID-19 pneumonia. INTERVAL HISTORY: The patient did go into respiratory distress last night and ended up getting intubated. The patient is currently hemodynamically stable. Did require low-dose pressor support, though. FiO2 is currently down to 50% and no diarrhea has been reported. PHYSICAL EXAMINATION: Blood pressure 152/77 with a pulse of 94, temperature 99.5. She is 99% on 50% FiO2. General description is an elderly female lying in bed in no distress. RESPIRATORY SYSTEM: Unlabored breathing with decreased breath sounds at the base. No wheeze. HEART: S1, S2. Regular rate and rhythm. ABDOMEN: Soft. No tenderness. LABS: Hemoglobin 11.3, white count 6.8. BUN of 27, creatinine 0.90. DIAGNOSTIC IMPRESSION AND PLAN: Patient with acute respiratory failure which is likely multifactorial in this patient with a likely component of COVID-19 pneumonia. Patient is currently covered with Plaquenil ; to continue and monitor her clinical course closely. Continue with supportive care. MMODL / IJN: [id number] /
[2019-12-01 23:55] LABS: Glucose,Whole Blood 109 mg/dL (75-99)
[2019-12-02] MEDS: INSULIN ASPART (NovoLOG) 100 UNIT/ML VIAL SQ SCH ×4 (00:28→19:54)
[2019-12-02] MEDS: PROPOFOL 1,000 MG in EMPTY BAG 1 BAG IV SCH ×6 (01:56→18:00)
[2019-12-02] MEDS: NOREPINEPHRINE 4 MG in SODIUM CHLORIDE 0.9% 250 ML IV SCH (04:14)
[2019-12-02 04:54] LABS: ABG Base Excess -1.1 mmol/L; ABG HCO3 24 mmol/L (21-25); ABG Oxygen Saturation 98.3 % (94-97); ABG PCO2 41 mmHg (35-45); ABG PH 7.38 (7.35-7.45); ABG PO2 132 mmHg (83-108); ABG TCO2 25 mmol/L (19-24); Allen Test Performed? Yes
[2019-12-02] MEDS: SODIUM CHLORIDE 0.9% 1,000 ML IV SCH ×2 (05:23→21:14)
[2019-12-02 05:39] LABS: Basophils % (A) 0 %; Eosinophils # (A) 0.1 k/uL (0-0.7); Eosinophils % (A) 2 %; HCT 36.1 % (34.0-46.0); HGB 11.2 gm/dL (11.4-16.0); Hypochromasia Slight; Lymphocytes # (A) 0.4 k/uL (1.0-4.8); Lymphocytes % (A) 8 %; MCH 28.9 pg (25.0-35.0); MCV 93.3 fL (80.0-100.0); Mean Platelet Volume 8.4; Monocytes # (A) 0.2 k/uL (0-1.0); Monocytes % (A) 4 %; Neutrophils # (A) 4.8 k/uL (1.3-7.7); Neutrophils % (A) 84 %; Platelet Count 249 k/uL (150-450); RBC 3.87 m/uL (3.80-5.40); RDW 13.5 % (11.5-15.5); WBC 5.7 k/uL (3.8-10.6)
[2019-12-02] MEDS: LEVOTHYROXINE 100 MCG TAB PO SCH (06:00)
[2019-12-02 06:02] LABS: ALT 17 U/L (4-34); AST 51 U/L (14-36); African American GFR (CKD) >90 (>60 ml/min/1.73 sqM); Albumin 2.9 g/dL (3.5-5.0); Alkaline Phosphatase 82 U/L (38-126); Anion Gap 7 mmol/L; Blood Urea Nitrogen 21 mg/dL (7-17); Calcium 8.6 mg/dL (8.4-10.2); Carbon Dioxide 24 mmol/L (22-30); Chloride 108 mmol/L (98-107); Creatine Kinase 578 U/L (30-135); Glucose 110 mg/dL (74-99); LDH 1087 U/L (313-618); Non-African American GFR(CKD) 84 (>60 ml/min/1.73 sqM); Potassium 3.6 mmol/L (3.5-5.1); Sodium 139 mmol/L (137-145); Total Bilirubin 0.5 mg/dL (0.2-1.3); Total Protein 6.1 g/dL (6.3-8.2)
[2019-12-02 06:07] LABS: Glucose,Whole Blood 113 mg/dL (75-99)
[2019-12-02] MEDS ORDERED: POTASSIUM BICARBONATE/CIT AC 20 MEQ TABLET.EFF NG-TUBE SCH (07:00)
[2019-12-02] MEDS ORDERED: POTASSIUM CHLORIDE ER 20 MEQ TAB.ER PO SCH (07:00)
--- NOTE | 2019-12-02 07:25 | XR ---
EXAMINATION TYPE: XR chest 1V portable DATE OF EXAM: 12/02/2019 COMPARISON: December 01, 2019 HISTORY: SOB, Follow Up FINDINGS: Indwelling tubes and catheters are unchanged. Scattered interstitial infiltrates are seen bilaterally. Airspace consolidation left lower lobe. Over all appearance is slightly progressive. Correlate clinically. Stable appearance of the cardio-mediastinal structures at this time. Suspect small left-sided pleural effusion. IMPRESSION: 1. Scattered interstitial infiltrates are seen bilaterally. Airspace consolidation left lower lobe. Overall appearance is slightly progressive. Correlate clinically.
[2019-12-02] MEDS: ZINC SULFATE 220 MG CAP PO SCH (09:04)
[2019-12-02] MEDS: HYDROXYCHLOROQUINE SULFATE 200 MG TAB PO SCH ×2 (09:04→21:14)
[2019-12-02] MEDS: CHLORHEXIDINE GLUCONATE 15 ML CUP MUCOUS MEM SCH ×2 (09:04→21:14)
[2019-12-02] MEDS: ASPIRIN 81 MG PO SCH (09:04)
[2019-12-02] MEDS: RIVAROXABAN 20 MG TAB PO SCH (09:04)
[2019-12-02 09:10] LABS: C Reactive Protein 300.7 mg/L (<10.0)
[2019-12-02] MEDS: fentaNYL (PF) 1,000 MCG in SODIUM CHLORIDE 0.9% 80 ML IV SCH (10:53)
[2019-12-02 11:25] LABS: Ferritin 526.2 ng/mL (10.0-291.0)
[2019-12-02 12:10] LABS: Glucose,Whole Blood 109 mg/dL (75-99)
--- NOTE | 2019-12-02 12:51 | P.PN ---
Subjective Progress Note Date: 12/02/19 This is a 74-year-old -[place] female patient who lives in [place]. The patient has history of atrial fibrillation and she has been maintained on Xarelto on long-term basis. The patient felt febrile and had increased cough approximately a week ago. She end up going to [facility] where she was tested and she was confirmed to have positive: 19 infection. The patient was discharged home. However, as the patient became more short of breath and her cough that is worse, the patient presented to ED department at [facility] where she was evaluated and she was placed on high flow oxygen because of her ongoing hypoxemia. The patient's pulse ox apparently was in the low 80s and she was given supplemental oxygen including 100% nonrebreather facemask. The patient got transferred to us for further monitoring and treatment. The patient's white cell count was at 4.4 at time of admission and the patient had a lymphopenia with a lymphocyte level of 0.7. Hemoglobin was at 13.3. Platelet count was 222, LFTs are unremarkable, the troponin was negative, CRP was 122, LDH was 548, ferritin level was 723, CPK was 156 and the lactic acid level was 1.6. Chest x-ray showed bilateral pulmonary infiltrates interstitial changes bilaterally right more than left more so in the lung bases bilaterally. Clinically, despite hypoxemia, the patient seems to be quite stable and she is struggling with her breathing. She is not using some ecchymosis of breathing. She is currently on high flow oxygen at 10 L in addition to 100% on a beta facemasks and pulse ox is around 87-90%. No nausea. No vomiting. No altered mentation. No chest pain. Her cardiac rhythm is still in atrial fibrillation. The patient was started on Plaquenil. She is an ex- smoker. She has history of COPD and she has been maintained on Stiolto on outpatient basis. On 12/01/2019 and seeing this patient for a follow-up. As mentioned earlier the patient was Hospital as for an acute Covid 19 pneumonia. The patient was on 100% nonrebreather facemask. Yesterday evening, the patient's condition de compensated. As such, the patient had to be intubated and placed on a mechanical ventilator. This was done by [employer] [employer] and intubation process was successful. This morning the patient is being seen for a follow-up. The patient currently is on assist-control mode rate of 20 with tidal volume of 350 and FiO2 of 40% with a PEEP of 15. The patient is on propofol which is running at 75 g per KG pigmented and fentanyl drip is running in 1 g per KG per hour. Levothroid has also be used at a dose of 0.04 g per KG pigmented for hemodynamic support. The patient will be started on enteral feeding for nutrition support. Do not lung cancer and a triple-lumen cath was also inserted. Note that the patient is afebrile today. The patient had a T-max of 99.9. The LDH still elevated at 1140. The d-dimer is at 1.19. Blood gases from today shows a pH of 7.36 with a pCO2 of 42 and pO2 of 82. Chest x-ray shows interval insertion of the ET tube and there is bilateral basilar reticular nodular infiltrates and some increased infiltration of the upper lobes bilaterally. The patient's net fluid balance is +1.8 L over the past 24 hours. She'll be started on enteral feeding for nutritional support. She is already on a combination of zinc sulfate and Plaquenil. She was also maintained on antico agulation with Xarelto regarding her chronic atrial fibrillation. On 12/02/2019, the patient remains intubated on a mechanical ventilator. This morning, the patient is sedated with propofol of 75 mcg/kg per minute and fentanyl at all micrograms per kilogram per hour. The patient remains intubated on mechanical ventilator. The patient is an assist-control mode rate of 20 with tidal volume of 350 and FiO2 of 50% with a PEEP of 15. The patient's chest x- ray shows some limited infiltration of the lung bases along with some scattered bibasilar groundglass and reticulocyte another pulmonary infiltrates. The patient is producing adequate amount of urine output. Norepinephrine infusion is running at a low dose of 0.02 g per KG per minute. The patient developed a lower blood pressure of this pressors and the urine output are also drop. The neck fluid balance is positive troponin 9 L over the past 24 hours. No documented fever. The blood gases from today showed a pH of 7.38 with a pCO2 of 41 and pO2 of 132. The patient's LDH today's 1087 and the 50s up to 578 and the CRP level is at 300. LFTs remain nonelevated with an AST of 51 ALT of 17. Renal function is stable with a creatinine of 0.7. No significant leukocytosis. The patient has underlying lymphopenia. Enteral feeding will be started on her for nutritional support. Echocardiogram is to follow. Objective - Vital Signs Vital signs: Vital Signs Temp 97.5 F L 12/02/19 12:20 Pulse 80 12/02/19 12:20 Resp 20 12/02/19 12:20 BP 131/76 12/02/19 12:20 Pulse Ox 95 12/02/19 12:20 Intake & Output 12/01/19 12/02/19 12/02/19 18:59 06:59 18:59 Intake Total 8104.793 1450.100 779.986 Output Total 270 345 205 Balance 4797.191 7939.100 574.986 Weight 72.4 kg 74 kg 74 kg Intake: IV 900 933 288 .9 33 3 Sodium Chloride 0.9% 1, 900 900 285 000 ml @ 20 mls/hr IV . Q24H [facility] Rx#:[id number] Intake, IV Titration 1009.168 395.100 339.986 Amount Norepinephrine 4 mg In 69.621 77.891 46.208 Sodium Chloride 0.9% 250 ml @ 0.05 MCG/KG/MIN 13. 202 mls/hr IV .[id number] [facility] Rx#:[id number] Propofol 1,000 mg In 356.618 300 195.025 Empty Bag 1 bag @ Titrate IV .Q0M [facility] Rx#: [id number] Sodium Chloride 0.9% 500 500 ml 500 ml @ 999 mls/hr IV .Q31M [facility] Rx#:[id number] fentaNYL (PF) 1,000 mcg 82.929 17.209 98.753 In Sodium Chloride 0.9% 80 ml @ 1 MCG/KG/HR 6.93 mls/hr IV .[id number] [facility] Rx #:[id number] Tube Feeding 10 200 127 Other 90 25 Output: Urine 270 345 205 Other: Voiding Method Indwelling Catheter Indwelling Catheter Indwelling Catheter # Voids 0 ABP, PAP, CO, CI - Last Documented Arterial Blood Pressure 114/49 - Exam Gen. appearance currently the patient is calm comfortable not to this is intubated on a mechanical ventilator. Orogastric and orotracheal tube are both in place. The patient has a left subclavian triple catheter in place. Head exam was generally normal. There was no scleral icterus or corneal arcus. Mucous membranes were moist. Neck was supple and without jugular venous distension, thyromegaly, or carotid bruits. Carotids were easily palpable bilaterally. There was no adenopathy. Lungs sounds are diminished and there is crackles at lung bases bilaterally. No wheezes or rhonchi. Cardiac exam revealed the PMI to be normally situated and sized. The rhythm was regular and no extrasystoles were noted during several minutes of auscultation. The first and second heart sounds were normal and the rhythm is irregular consistent with atrial fibrillation and physiologic splitting of the second heart sound was noted. There were no murmurs, rubs, clicks, or gallops. Abdominal exam revealed normal bowel sounds. The abdomen was soft, non-tender, and without masses, organomegaly, or appreciable enlargement of the abdominal aorta. Examination of the extremities revealed easily palpable radial, femoral and pedal pulses. There was no cyanosis, clubbing or edema. Examination of the skin revealed no evidence of significant rashes, suspicious appearing nevi or other concerning lesions. Neurologically the patient is well sedated and calm and comfortable and she withdraws to painful stimulation. - Labs CBC & Chem 7: 12/02/19 04:57 12/02/19 04:57 Labs: Abnormal Lab Results - Last 24 Hours (Table) 12/01/19 12/01/19 12/02/19 Range/Units 17:50 23:53 04:42 Hgb (11.4-16.0) gm/dL Lymphocytes # (1.0-4.8) k/uL ABG pO2 132 H (83-108) mmHg ABG Total CO2 25 H (19-24) mmol/L ABG O2 Saturation 98.3 H (94-97) % Chloride (98-107) mmol/L BUN (7-17) mg/dL Glucose (74-99) mg/dL POC Glucose (mg/dL) 121 H 109 H (75-99) mg/dL Ferritin (10.0-291.0) ng/mL AST (14-36) U/L Lactate Dehydrogenase (313-618) U/L Creatine Kinase (30-135) U/L C-Reactive Protein (<10.0) mg/L Total Protein (6.3-8.2) g/dL Albumin (3.5-5.0) g/dL 12/02/19 12/02/19 12/02/19 Range/Units 04:57 04:57 06:06 Hgb 11.2 L (11.4-16.0) gm/dL Lymphocytes # 0.4 L (1.0-4.8) k/uL ABG pO2 (83-108) mmHg ABG Total CO2 (19-24) mmol/L ABG O2 Saturation (94-97) % Chloride 108 H (98-107) mmol/L BUN 21 H (7-17) mg/dL Glucose 110 H (74-99) mg/dL POC Glucose (mg/dL) 113 H (75-99) mg/dL Ferritin 526.2 H (10.0-291.0) ng/mL AST 51 H (14-36) U/L Lactate Dehydrogenase 1087 H (313-618) U/L Creatine Kinase 578 H (30-135) U/L C-Reactive Protein 300.7 H (<10.0) mg/L Total Protein 6.1 L (6.3-8.2) g/dL Albumin 2.9 L (3.5-5.0) g/dL 12/02/19 Range/Units 12:06 Hgb (11.4-16.0) gm/dL Lymphocytes # (1.0-4.8) k/uL ABG pO2 (83-108) mmHg ABG Total CO2 (19-24) mmol/L ABG O2 Saturation (94-97) % Chloride (98-107) mmol/L BUN (7-17) mg/dL Glucose (74-99) mg/dL POC Glucose (mg/dL) 109 H (75-99) mg/dL Ferritin (10.0-291.0) ng/mL AST (14-36) U/L Lactate Dehydrogenase (313-618) U/L Creatine Kinase (30-135) U/L C-Reactive Protein (<10.0) mg/L Total Protein (6.3-8.2) g/dL Albumin (3.5-5.0) g/dL Microbiology - Last 24 Hours (Table) 11/29/19 23:30 Urine Culture - Preliminary Urine,Voided Gram Neg Bacilli 12/01/19 00:23 Gram Stain - Preliminary Sputum Sputum Culture - Preliminary Assessment and Plan Plan: 1 acute Covid 19 pneumonia with secondary hypoxic respiratory failure/ARDS. The patient failed 100% nonrebreather facemask and the patient became progressively more hypoxic. The patient to be intubated and placed on a mechanical ventilator. She is oxygenating and ventilating well for now. Chest x-ray still consistent with viral pneumonia. The patient is on a 15 of PEEP and FiO2 of 50%. I think is on room and weaning down the PEEP and FiO2 on today's evaluation. She is afebrile. She is on oral Plaquenil for now. Hemodynamically she is requiring low-dose pressors for hemodynamic support. LDH, and CRP levels are still elevated. 2 acute hypoxic respiratory failure and the patient is currently intubated on a mechanical ventilator. 3 low-grade fever, currently afebrile 4 COPD 5 hypertension 6 chronic atrial fibrillation, controlled rate currently on Xarelto 7 hypotension requiring low-dose pressors for hemodynamic support. 8 gram-negative UTI Plan Wean off pressors and discontinue as long as the mean arterial pressures above 65. Continue vent support no ventilator changes will be done today. . DiI'm going to drop down the PEEP to 12. the fio2 down to 40%. echocardiac mely is to follow. Continue Plaquenil and zinc sulfate combination Enteral feeding for nutritional support Gentle hydration Monitor fever pattern, currently afebrile Monitored in telemetry markers including LDH and C-reactive protein The urine cultures showing gram-negative bacillus and for that reason IV Rocephin will be added as an empiric antibiotic coverage. Condition is critical. We'll continue to follow. We'll contact the family and [place] and inform them of the above-mentioned changes. This induration was on a more than 30 minutes excluding time to do any procedures. Time with Patient: Greater than 30
--- NOTE | 2019-12-02 17:10 | PN ---
PROGRESS NOTE DATE OF SERVICE: 12/02/2019 REASON FOR FOLLOWUP: 1. Acute COVID-19 pneumonia. 2. E coli urinary tract infection. INTERVAL HISTORY: The patient is currently afebrile. Patient is hemodynamically stable, still requiring low-dose pressors in form of Levophed. FiO2 is currently around 40%. No significant purulent secretion through the ET and no diarrhea has been reported. PHYSICAL EXAMINATION: Blood pressure 113/51 with a pulse of 80, temperature is 97.7. She is 95% on 40% FiO2. General description is an elderly female, lying in bed in no distress. RESPIRATORY SYSTEM: Unlabored breathing, clear to auscultation anteriorly. HEART: S1, S2. Regular rate and rhythm. ABDOMEN: Soft, no tenderness. LABS: Hemoglobin of 11.8, white count of 5.7. BUN of 21, creatinine 0.72. DIAGNOSTIC IMPRESSION AND PLAN: 1. Patient with acute ventilator-dependent respiratory failure which is likely multifactorial. This patient did have positive COVID-19 pneumonia. Patient is currently covered with Plaquenil. Continue with respiratory support. 2. Patient with possible Escherichia coli gram-negative urinary tract infection. Rocephin has been added. Will monitor clinical response closely. MMODL / IJN: [id number] /
[2019-12-02 17:45] LABS: Glucose,Whole Blood 104 mg/dL (75-99)
--- NOTE | 2019-12-02 21:46 | P.PN ---
Subjective Progress Note Date: 12/02/19 (delayed charting seen at 1400) Principal diagnosis: shortness of breath Patient is a 74-year-old -[place] female with a past medical history of hypertension, mild COPD, and paroxysmal atrial fibrillation on Xarelto who presented to [place] emergency department with complaints of coughing, headache, and shortness of breath. She was transferred here due to the covert r elief effort. Initial evaluation consistent with atypical or viral pneumonia with probable covert 19. She had testing done at [place] which was positive for COVID-19. She was started on hydroxychloroquine, zinc, and as needed Tylenol. Pulmonary was consulted. Her O2 requirement continued to increase. Chest x-ray consistent with pneumonia/ARDS picture. We had a long discussion she was okay with elective intubation. She was intubated on the afternoon of 11/30/2019. She did require propofol, fentanyl, norepinephrine, and antibiotics. She has required increasing peep up to 14. Patient seen and examined at bedside. Stated, intubated, and paralyzed on vent. Per nursing had issues with teeth overnight and bleeding (family aware) Objective - Vital Signs Vital signs: Vital Signs Temp 97.8 F 12/02/19 20:00 Pulse 75 12/02/19 21:00 Resp 20 12/02/19 21:00 BP 141/65 12/02/19 19:00 Pulse Ox 94 L 12/02/19 21:00 Intake & Output 12/02/19 12/02/19 12/03/19 06:59 18:59 06:59 Intake Total 6323.662 4092.055 141 Output Total 345 370 90 Balance 1273.100 933.055 51 Weight 74 kg 74 kg Intake: IV 933 408 60 .9 33 3 Sodium Chloride 0.9% 1, 900 405 60 000 ml @ 20 mls/hr IV . Q24H NGUYEN Rx#:[id number] Intake, IV Titration 395.100 551.055 Amount Norepinephrine 4 mg In 77.891 64.424 Sodium Chloride 0.9% 250 ml @ 0.05 MCG/KG/MIN 13. 202 mls/hr IV .[id number] NGUYEN Rx#:[id number] Propofol 1,000 mg In 300 387.878 Empty Bag 1 bag @ Titrate IV .Q0M NGUYEN Rx#: [id number] fentaNYL (PF) 1,000 mcg 17.209 98.753 In Sodium Chloride 0.9% 80 ml @ 1 MCG/KG/HR 6.93 mls/hr IV .[id number] NGUYEN Rx #:[id number] Tube Feeding 200 289 81 Other 90 55 Output: Urine 345 370 90 Other: Voiding Method Indwelling Catheter Indwelling Catheter # Voids 0 ABP, PAP, CO, CI - Last Documented Arterial Blood Pressure 95/38 - Exam General: Ill appearing, no distress distress, appears at stated age Derm: warm, dry Head: atraumatic, normocephalic, symmetric Eyes: No conjunctival injection, no lid lesion anicteric sclera Mouth: no lip lesion, appears dry, ET tube in place Cardiovascular: S1S2 reg, no murmur, positive posterior tibial pulse bilateral, Lungs: Coarse breath sounds bilaterally, no accessory muscle use, on vent Abdominal: soft, no appreciable organomegaly Ext: no gross muscle atrophy, no edema, no contractures Neuro: chemically Paralyzed Psych: Sedated - Labs CBC & Chem 7: 12/02/19 04:57 12/02/19 04:57 Labs: Abnormal Lab Results - Last 24 Hours (Table) 12/01/19 12/02/19 12/02/19 Range/Units 23:53 04:42 04:57 Hgb 11.2 L (11.4-16.0) gm/dL Lymphocytes # 0.4 L (1.0-4.8) k/uL ABG pO2 132 H (83-108) mmHg ABG Total CO2 25 H (19-24) mmol/L ABG O2 Saturation 98.3 H (94-97) % Chloride (98-107) mmol/L BUN (7-17) mg/dL Glucose (74-99) mg/dL POC Glucose (mg/dL) 109 H (75-99) mg/dL Ferritin (10.0-291.0) ng/mL AST (14-36) U/L Lactate Dehydrogenase (313-618) U/L Creatine Kinase (30-135) U/L C-Reactive Protein (<10.0) mg/L Total Protein (6.3-8.2) g/dL Albumin (3.5-5.0) g/dL 12/02/19 12/02/19 12/02/19 Range/Units 04:57 06:06 12:06 Hgb (11.4-16.0) gm/dL Lymphocytes # (1.0-4.8) k/uL ABG pO2 (83-108) mmHg ABG Total CO2 (19-24) mmol/L ABG O2 Saturation (94-97) % Chloride 108 H (98-107) mmol/L BUN 21 H (7-17) mg/dL Glucose 110 H (74-99) mg/dL POC Glucose (mg/dL) 113 H 109 H (75-99) mg/dL Ferritin 526.2 H (10.0-291.0) ng/mL AST 51 H (14-36) U/L Lactate Dehydrogenase 1087 H (313-618) U/L Creatine Kinase 578 H (30-135) U/L C-Reactive Protein 300.7 H (<10.0) mg/L Total Protein 6.1 L (6.3-8.2) g/dL Albumin 2.9 L (3.5-5.0) g/dL 12/02/19 Range/Units 17:43 Hgb (11.4-16.0) gm/dL Lymphocytes # (1.0-4.8) k/uL ABG pO2 (83-108) mmHg ABG Total CO2 (19-24) mmol/L ABG O2 Saturation (94-97) % Chloride (98-107) mmol/L BUN (7-17) mg/dL Glucose (74-99) mg/dL POC Glucose (mg/dL) 104 H (75-99) mg/dL Ferritin (10.0-291.0) ng/mL AST (14-36) U/L Lactate Dehydrogenase (313-618) U/L Creatine Kinase (30-135) U/L C-Reactive Protein (<10.0) mg/L Total Protein (6.3-8.2) g/dL Albumin (3.5-5.0) g/dL Microbiology - Last 24 Hours (Table) 11/29/19 23:30 Urine Culture - Preliminary Urine,Voided Gram Neg Bacilli Assessment and Plan Assessment: Bilateral pneumonia secondary to COVID 19 with ARDS and acute hypoxic respiratory failure requiring intubation -Continue with Plaquenil -Symbicort, albuterol inhaler -Vent management per critical care -Follow d-dimer, LDH, CRP, CK, and troponin -Follow chest x-ray until clear -Pulmonary critical care recommendations appreciated -Follow QT interval -Gentle IV fluids - echo pending Gram negative UTI - Rocephin - Await final culture Hypotension secondary to medications -Wean the Levophed as able -No signs of septic shock Hypothyroidism -Synthroid Hypertension,hx now hypotensive -Hydrochlorothiazide disconitnued -Follow blood pressures Paroxysmal atrial fibrillation -Not on rate controlling medications -Continue with Xarelto COPD without acute exacerbation -Bronchodilators -Consider steroids Dyslipidemia -Statin therapy DVT prophylaxis: Xarelto Discussed with: Patient Anticipated discharge: undetermined Anticipated discharge place: undetermined A total of 25 minutes was spent on the care of this complex patient more than 50% of the time was spent in counseling and care coordination.
[2019-12-03 00:16] LABS: Glucose,Whole Blood 84 mg/dL (75-99)
[2019-12-03] MEDS: INSULIN ASPART (NovoLOG) 100 UNIT/ML VIAL SQ SCH ×4 (00:16→18:16)
[2019-12-03] MEDS: fentaNYL (PF) 1,000 MCG in SODIUM CHLORIDE 0.9% 80 ML IV SCH ×2 (03:08→13:13)
[2019-12-03] MEDS: PROPOFOL 1,000 MG in EMPTY BAG 1 BAG IV SCH ×4 (03:09→21:56)
[2019-12-03 04:54] LABS: ABG Base Excess 2.1 mmol/L; ABG HCO3 27 mmol/L (21-25); ABG Oxygen Saturation 93.2 % (94-97); ABG PCO2 43 mmHg (35-45); ABG PH 7.41 (7.35-7.45); ABG PO2 67 mmHg (83-108); ABG TCO2 28 mmol/L (19-24)
[2019-12-03 05:14] LABS: Basophils % (A) 0 %; Eosinophils # (A) 0.2 k/uL (0-0.7); Eosinophils % (A) 3 %; HCT 33.1 % (34.0-46.0); HGB 10.5 gm/dL (11.4-16.0); Lymphocytes # (A) 0.4 k/uL (1.0-4.8); Lymphocytes % (A) 6 %; MCH 29.1 pg (25.0-35.0); MCHC 31.8 g/dL (31.0-37.0); MCV 91.4 fL (80.0-100.0); Mean Platelet Volume 8.3; Monocytes # (A) 0.2 k/uL (0-1.0); Monocytes % (A) 3 %; Neutrophils # (A) 5.6 k/uL (1.3-7.7); Neutrophils % (A) 86 %; Platelet Count 240 k/uL (150-450); RBC 3.62 m/uL (3.80-5.40); RDW 13.6 % (11.5-15.5); WBC 6.5 k/uL (3.8-10.6)
[2019-12-03 05:25] LABS: Allen Test Performed? no
[2019-12-03 05:41] LABS: ALT 16 U/L (4-34); AST 48 U/L (14-36); African American GFR (CKD) >90 (>60 ml/min/1.73 sqM); Albumin 2.5 g/dL (3.5-5.0); Alkaline Phosphatase 86 U/L (38-126); Anion Gap 4 mmol/L; Blood Urea Nitrogen 16 mg/dL (7-17); Calcium 8.4 mg/dL (8.4-10.2); Carbon Dioxide 27 mmol/L (22-30); Chloride 107 mmol/L (98-107); Creatine Kinase 518 U/L (30-135); Glucose 113 mg/dL (74-99); LDH 925 U/L (313-618); Non-African American GFR(CKD) >90 (>60 ml/min/1.73 sqM); Potassium 3.6 mmol/L (3.5-5.1); Sodium 138 mmol/L (137-145); Total Bilirubin 0.4 mg/dL (0.2-1.3); Total Protein 5.6 g/dL (6.3-8.2)
[2019-12-03 06:10] LABS: Glucose,Whole Blood 113 mg/dL (75-99)
[2019-12-03] MEDS: NOREPINEPHRINE 4 MG in SODIUM CHLORIDE 0.9% 250 ML IV SCH (06:16)
--- NOTE | 2019-12-03 06:49 | XR ---
EXAMINATION TYPE: XR chest 1V portable DATE OF EXAM: 12/03/2019 HISTORY: Tube placement. REFERENCE: Previous study dated 12/02/2019 the patient is NG tube, ET tube and left subclavian catheter remain in place, unchanged in appearance. There is bibasilar airspace disease. This may have worsened slightly. Heart size upper limits of norm al. There is some blunting of the left CP angle and I cannot exclude a small left effusion.. FINDINGS: There is slight worsening in the appearance of the right basilar pneumonia with no interval change on the left and questionable left effusion. IMPRESSION:
[2019-12-03] MEDS ORDERED: POTASSIUM BICARBONATE/CIT AC 20 MEQ TABLET.EFF NG-TUBE SCH ×2 (07:00→19:00)
[2019-12-03] MEDS: LEVOTHYROXINE 100 MCG TAB PO SCH (07:07)
[2019-12-03 07:34] LABS: C Reactive Protein 345.9 mg/L (<10.0)
[2019-12-03] MEDS: CHLORHEXIDINE GLUCONATE 15 ML CUP MUCOUS MEM SCH ×2 (08:00→21:31)
[2019-12-03] MEDS: RIVAROXABAN 20 MG TAB PO SCH (08:01)
[2019-12-03] MEDS: ZINC SULFATE 220 MG CAP PO SCH (08:01)
[2019-12-03] MEDS: ASPIRIN 81 MG PO SCH (08:01)
[2019-12-03] MEDS: HYDROXYCHLOROQUINE SULFATE 200 MG TAB PO SCH ×2 (08:01→21:31)
[2019-12-03] MEDS ORDERED: FUROSEMIDE 10 MG/ML 4 ML VIAL IV STA (09:05)
[2019-12-03] MEDS: methylPREDNISolone SOD SUCCI 40 MG/ML 1 ML VIAL IV SCH ×2 (09:27→21:31)
[2019-12-03 09:28] LABS: ABG Base Excess 2.8 mmol/L; ABG HCO3 27 mmol/L (21-25); ABG Oxygen Saturation 94.9 % (94-97); ABG PCO2 40 mmHg (35-45); ABG PH 7.44 (7.35-7.45); ABG PO2 67 mmHg (83-108); ABG TCO2 28 mmol/L (19-24); Allen Test Performed? Yes
[2019-12-03 11:31] LABS: Glucose,Whole Blood 135 mg/dL (75-99)
--- NOTE | 2019-12-03 12:55 | P.PN ---
Subjective Progress Note Date: 12/03/19 This is a 74-year-old -[place] female patient who lives in [place]. The patient has history of atrial fibrillation and she has been maintained on Xarelto on long-term basis. The patient felt febrile and had increased cough approximately a week ago. She end up going to [facility] where she was tested and she was confirmed to have positive: 19 infection. The patient was discharged home. However, as the patient became more short of breath and her cough that is worse, the patient presented to ED department at [facility] where she was evaluated and she was placed on high flow oxygen because of her ongoing hypoxemia. The patient's pulse ox apparently was in the low 80s and she was given supplemental oxygen including 100% nonrebreather facemask. The patient got transferred to us for further monitoring and treatment. The patient's white cell count was at 4.4 at time of admission and the patient had a lymphopenia with a lymphocyte level of 0.7. Hemoglobin was at 13.3. Platelet count was 222, LFTs are unremarkable, the troponin was negative, CRP was 122, LDH was 548, ferritin level was 723, CPK was 156 and the lactic acid level was 1.6. Chest x-ray showed bilateral pulmonary infiltrates interstitial changes bilaterally right more than left more so in the lung bases bilaterally. Clinically, despite hypoxemia, the patient seems to be quite stable and she is struggling with her breathing. She is not using some ecchymosis of breathing. She is currently on high flow oxygen at 10 L in addition to 100% on a beta facemasks and pulse ox is around 87-90%. No nausea. No vomiting. No altered mentation. No chest pain. Her cardiac rhythm is still in atrial fibrillation. The patient was started on Plaquenil. She is an ex- smoker. She has history of COPD and she has been maintained on Stiolto on outpatient basis. On 12/01/2019 and seeing this patient for a follow-up. As mentioned earlier the patient was Hospital as for an acute Covid 19 pneumonia. The patient was on 100% nonrebreather facemask. Yesterday evening, the patient's condition de compensated. As such, the patient had to be intubated and placed on a mechanical ventilator. This was done by [employer] and intubation process was successful. This morning the patient is being seen for a follow-up. The patient currently is on assist-control mode rate of 20 with tidal volume of 350 and FiO2 of 40% with a PEEP of 15. The patient is on propofol which is running at 75 g per KG pigmented and fentanyl drip is running in 1 g per KG per hour. Levothroid has also be used at a dose of 0.04 g per KG pigmented for hemodynamic support. The patient will be started on enteral feeding for nutrition support. Do not lung cancer and a triple-lumen cath was also inserted. Note that the patient is afebrile today. The patient had a T-max of 99.9. The LDH still elevated at 1140. The d-dimer is at 1.19. Blood gases from today shows a pH of 7.36 with a pCO2 of 42 and pO2 of 82. Chest x-ray shows interval insertion of the ET tube and there is bilateral basilar reticular nodular infiltrates and some increased infiltration of the upper lobes bilaterally. The patient's net fluid balance is +1.8 L over the past 24 hours. She'll be started on enteral feeding for nutritional support. She is already on a combination of zinc sulfate and Plaquenil. She was also maintained on antico agulation with Xarelto regarding her chronic atrial fibrillation. On 12/02/2019, the patient remains intubated on a mechanical ventilator. This morning, the patient is sedated with propofol of 75 mcg/kg per minute and fentanyl at all micrograms per kilogram per hour. The patient remains intubated on mechanical ventilator. The patient is an assist-control mode rate of 20 with tidal volume of 350 and FiO2 of 50% with a PEEP of 15. The patient's chest x- ray shows some limited infiltration of the lung bases along with some scattered bibasilar groundglass and reticulocyte another pulmonary infiltrates. The patient is producing adequate amount of urine output. Norepinephrine infusion is running at a low dose of 0.02 g per KG per minute. The patient developed a lower blood pressure of this pressors and the urine output are also drop. The neck fluid balance is positive troponin 9 L over the past 24 hours. No documented fever. The blood gases from today showed a pH of 7.38 with a pCO2 of 41 and pO2 of 132. The patient's LDH today's 1087 and the 50s up to 578 and the CRP level is at 300. LFTs remain nonelevated with an AST of 51 ALT of 17. Renal function is stable with a creatinine of 0.7. No significant leukocytosis. The patient has underlying lymphopenia. Enteral feeding will be started on her for nutritional support. Echocardiogram is to follow. On 12/03/2019, I'm seeing this patient for a follow-up. Clinically significantly since her the same compared to yesterday. She is sedated on propofol at the rate of 75 mcg/kg per minute and the patient is also on fentanyl at 1 mcg/kg/h. She is requiring a lot of stresses in her urine output is very much dependent that pressor. She is on norepinephrine infusion at the rate of 0.03 units per kilogram per minute. And the patient's is on a normal saline infusion at the rate of 10 mL an hour. Her net fluid balance is +0.9 L over the past 24 hours. The patient's is an assist-control mode at the rate of 20 with tidal volume of 350 and FiO2 of 40% with a PEEP of 12. Chest x-ray findings are essentially the same and unchanged compared to yesterday. The blood gases from today showed a pH of 7.44 with a pCO2 of 40 and pO2 of 67 and this was done and FiO2 of 40%. Peak airway pressure is 31. Plateau airway pressure is 27. The CRP level is at 387 which is higher compared to yesterday. The LDH level is 925 which is lower compared to yesterday. Creatinine is at 0.5. TPN is at 16. The patient is afebrile for now. The patient remains on a combination of Plaquenil and zinc sulfate. The patient is also on IV Rocephin as an empiric antibiotic coverage. No other significant events otherwise for now. She is tolerating her tube feeds which is running at the rate of 27 mL an hour. Objective - Vital Signs Vital signs: Vital Signs Temp 98.1 F 12/03/19 12:00 Pulse 79 12/03/19 12:00 Resp 20 12/03/19 12:00 BP 115/57 12/03/19 12:00 Pulse Ox 98 12/03/19 12:00 Intake & Output 12/02/19 12/03/19 12/03/19 18:59 06:59 18:59 Intake Total 1303.055 764 510.656 Output Total 771 351 8896 Balance 933.055 139 -534.344 Weight 74 kg 76.9 kg Intake: IV 408 240 120 .9 3 Sodium Chloride 0.9% 1, 405 240 120 000 ml @ 20 mls/hr IV . Q24H NGUYEN Rx#:[id number] Intake, IV Titration 551.055 200 255.656 Amount Norepinephrine 4 mg In 64.424 57.863 Sodium Chloride 0.9% 250 ml @ 0.05 MCG/KG/MIN 13. 202 mls/hr IV .[id number] NGUYEN Rx#:[id number] Propofol 1,000 mg In 387.878 100 147.793 Empty Bag 1 bag @ Titrate IV .Q0M NGUYEN Rx#: [id number] cefTRIAXone 1 gm In 50 Sodium Chloride 0.9% 50 ml @ 100 mls/hr IVPB Q24HR NGUYEN Rx#:[id number] fentaNYL (PF) 1,000 mcg 98.753 100 In Sodium Chloride 0.9% 80 ml @ 1 MCG/KG/HR 6.93 mls/hr IV .[id number] NGUYEN Rx #:[id number] Tube Feeding 289 324 135 Other 55 Output: Urine 622 965 9080 Other: Voiding Method Indwelling Catheter Indwelling Catheter Indwelling Catheter # Voids 0 ABP, PAP, CO, CI - Last Documented Arterial Blood Pressure 107/45 - Exam Gen. appearance currently the patient is calm comfortable not to this is intubated on a mechanical ventilator. Orogastric and orotracheal tube are both in place. The patient has a left subclavian triple catheter in place. Head exam was generally normal. There was no scleral icterus or corneal arcus. Mucous membranes were moist. Neck was supple and without jugular venous distension, thyromegaly, or carotid bruits. Carotids were easily palpable bilaterally. There was no adenopathy. Lungs sounds are diminished and there is crackles at lung bases bilaterally. No wheezes or rhonchi. Cardiac exam revealed the PMI to be normally situated and sized. The rhythm was regular and no extrasystoles were noted during several minutes of auscultation. The first and second heart sounds were normal and the rhythm is irregular consistent with atrial fibrillation and physiologic splitting of the second heart sound was noted. There were no murmurs, rubs, clicks, or gallops. Abdominal exam revealed normal bowel sounds. The abdomen was soft, non-tender, and without masses, organomegaly, or appreciable enlargement of the abdominal aorta. Examination of the extremities revealed easily palpable radial, femoral and pedal pulses. There was no cyanosis, clubbing or edema. Examination of the skin revealed no evidence of significant rashes, suspicious appearing nevi or other concerning lesions. Neurologically the patient is well sedated and calm and comfortable and she withdraws to painful stimulation. - Labs CBC & Chem 7: 12/03/19 05:00 12/03/19 05:00 Labs: Abnormal Lab Results - Last 24 Hours (Table) 12/02/19 12/03/19 12/03/19 Range/Units 17:43 04:57 05:00 RBC (3.80-5.40) m/uL Hgb (11.4-16.0) gm/dL Hct (34.0-46.0) % Lymphocytes # (1.0-4.8) k/uL ABG pO2 67 L (83-108) mmHg ABG HCO3 27 H (21-25) mmol/L ABG Total CO2 28 H (19-24) mmol/L ABG O2 Saturation 93.2 L (94-97) % Glucose 113 H (74-99) mg/dL POC Glucose (mg/dL) 104 H (75-99) mg/dL AST 48 H (14-36) U/L Lactate Dehydrogenase 925 H (313-618) U/L Creatine Kinase 518 H (30-135) U/L C-Reactive Protein 345.9 H (<10.0) mg/L Total Protein 5.6 L (6.3-8.2) g/dL Albumin 2.5 L (3.5-5.0) g/dL 12/03/19 12/03/19 12/03/19 Range/Units 05:00 06:08 09:23 RBC 3.62 L (3.80-5.40) m/uL Hgb 10.5 L (11.4-16.0) gm/dL Hct 33.1 L (34.0-46.0) % Lymphocytes # 0.4 L (1.0-4.8) k/uL ABG pO2 67 L (83-108) mmHg ABG HCO3 27 H (21-25) mmol/L ABG Total CO2 28 H (19-24) mmol/L ABG O2 Saturation (94-97) % Glucose (74-99) mg/dL POC Glucose (mg/dL) 113 H (75-99) mg/dL AST (14-36) U/L Lactate Dehydrogenase (313-618) U/L Creatine Kinase (30-135) U/L C-Reactive Protein (<10.0) mg/L Total Protein (6.3-8.2) g/dL Albumin (3.5-5.0) g/dL 12/03/19 Range/Units 11:29 RBC (3.80-5.40) m/uL Hgb (11.4-16.0) gm/dL Hct (34.0-46.0) % Lymphocytes # (1.0-4.8) k/uL ABG pO2 (83-108) mmHg ABG HCO3 (21-25) mmol/L ABG Total CO2 (19-24) mmol/L ABG O2 Saturation (94-97) % Glucose (74-99) mg/dL POC Glucose (mg/dL) 135 H (75-99) mg/dL AST (14-36) U/L Lactate Dehydrogenase (313-618) U/L Creatine Kinase (30-135) U/L C-Reactive Protein (<10.0) mg/L Total Protein (6.3-8.2) g/dL Albumin (3.5-5.0) g/dL Microbiology - Last 24 Hours (Table) 12/01/19 00:23 Gram Stain - Final Sputum Sputum Culture - Final Keli albicans 11/29/19 23:30 Urine Culture - Final Urine,Voided Klebsiella pneumoniae Assessment and Plan Plan: 1 acute Covid 19 pneumonia with secondary hypoxic respiratory failure/ARDS. The patient remains intubated on a mechanical ventilator. The patient is sedated with propofol and fentanyl a combination. The patient is on a combination of Plaquenil and zinc sulfate. The patient is currently in ARDS without any major improvement in her oxygenation. The patient is currently on a PEEP of 12 with an FiO2 of 40%. She is in a positive fluid balance. Peak and plateau airway pressures are still elevated. She is afebrile. CRP level and LDH remains elevated. 2 acute hypoxic respiratory failure and the patient is currently intubated on a mechanical ventilator. 3 low-grade fever, currently afebrile 4 COPD 5 hypertension 6 chronic atrial fibrillation, controlled rate currently on Xarelto 7 hypotension requiring low-dose pressors for hemodynamic support. 8 gram-negative UTI with Klebsiella pneumoniae #9 sputum cultures indicating Keli albicans, likely a colonizer Plan . Continue vent support no ventilator changes will be done today. . Keep the patient on same vent settings with a PEEP to 12. the fio2 down to 40%. Continue Plaquenil and zinc sulfate combination Enteral feeding for nutritional support Give the patient undergoes of Lasix 40 mg IV push Monitor fever pattern, currently afebrile Monitored in telemetry markers including LDH and C-reactive protein The patient is currently in ARDS. The patient will be given Solu-Medrol 40 mg every 12 hours for the next 3-7 days Continue IV Rocephin regarding Klebsiella in the urine Continue rest of the supportive care including enteral feeding for nutritional support Condition is critical. We'll continue to follow. We'll contact the family and Rowdy and inform them of the above-mentioned changes. This induration was on a more than 30 minutes excluding time to do any procedures. Time with Patient: Greater than 30
[2019-12-03] MEDS: SODIUM CHLORIDE 0.9% 1,000 ML IV SCH (15:21)
[2019-12-03 18:07] LABS: Glucose,Whole Blood 138 mg/dL (75-99)
[2019-12-03 18:20] LABS: Magnesium 1.8 mg/dL (1.6-2.3); Potassium 3.7 mmol/L (3.5-5.1)
[2019-12-03] MEDS ORDERED: Magnesium Replacement Protocol 1 EACH MISC MISCELLANE PRN (18:32)
[2019-12-03] MEDS: MAGNESIUM SULFATE-D5W PMX 1 GM in DEXTROSE/WATER 1 100ML.BAG IVPB SCH ×2 (18:41→21:55)
--- NOTE | 2019-12-03 19:19 | P.PN ---
Subjective Progress Note Date: 12/03/19 Principal diagnosis: shortness of breath Patient is a 74-year-old -[place] female with a past medical history of hypertension, mild COPD, and paroxysmal atrial fibrillation on Xarelto who presented to [facility] emergency department with complaints of coughing, headache, and shortness of breath. She was transferred here due to the covert relief effort. Initial evaluation consistent with atypical or viral pneumonia with probable covert 19. She had testing done at [facility] which was positive for COVID-19. She was started on hydroxychloroquine, zinc, and as needed Ty lenol. Pulmonary was consulted. Her O2 requirement continued to increase. Chest x-ray consistent with pneumonia/ARDS picture. We had a long discussion she was okay with elective intubation. She was intubated on the afternoon of 11/30/2019. She did require propofol, fentanyl, norepinephrine, and antibiotics. She had not made significant progress by 12/03/2019 and continued to spike fevers. Patient seen and examined at bedside. Stated, intubated, and paralyzed on vent. No events overnight Objective - Vital Signs Vital signs: Vital Signs Temp 96.6 F L 12/03/19 16:00 Pulse 62 12/03/19 18:00 Resp 20 12/03/19 18:00 BP 124/68 12/03/19 16:00 Pulse Ox 99 12/03/19 18:00 Intake & Output 12/02/19 12/03/19 12/03/19 18:59 06:59 18:59 Intake Total 1303.995 212 9973.049 Output Total 891 896 1512 Balance 933.055 139 -848.951 Weight 74 kg 76.9 kg Intake: IV 408 240 240 .9 3 Sodium Chloride 0.9% 1, 405 240 240 000 ml @ 20 mls/hr IV . Q24H NGUYEN Rx#:[id number] Intake, IV Titration 551.055 200 447.049 Amount Norepinephrine 4 mg In 64.424 69.651 Sodium Chloride 0.9% 250 ml @ 0.05 MCG/KG/MIN 13. 202 mls/hr IV .[id number] NGUYEN Rx#:[id number] Propofol 1,000 mg In 387.878 100 257.521 Empty Bag 1 bag @ Titrate IV .Q0M NGUYEN Rx#: [id number] cefTRIAXone 1 gm In 50 Sodium Chloride 0.9% 50 ml @ 100 mls/hr IVPB Q24HR NGUYEN Rx#:[id number] fentaNYL (PF) 1,000 mcg 98.753 100 69.877 In Sodium Chloride 0.9% 80 ml @ 1 MCG/KG/HR 6.93 mls/hr IV .[id number] NGUYEN Rx #:[id number] Tube Feeding 289 324 324 Other 55 30 Output: Urine 382 893 8402 Other: Voiding Method Indwelling Catheter Indwelling Catheter Indwelling Catheter # Voids 0 ABP, PAP, CO, CI - Last Documented Arterial Blood Pressure 127/51 - Exam General: Ill appearing, no distress distress, appears at stated age Derm: warm, dry Head: atraumatic, normocephalic, symmetric Eyes: No conjunctival injection, no lid lesion anicteric sclera Mouth: no lip lesion, appears dry, ET tube in place Cardiovascular: S1S2 reg, no murmur, positive posterior tibial pulse bilateral, Lungs: Coarse breath sounds bilaterally, no accessory muscle use, on vent Abdominal: soft, no appreciable organomegaly Ext: no gross muscle atrophy, no edema, no contractures Neuro: chemically Paralyzed Psych: Sedated - Labs CBC & Chem 7: 12/03/19 05:00 12/03/19 17:49 Labs: Abnormal Lab Results - Last 24 Hours (Table) 12/03/19 12/03/19 12/03/19 Range/Units 04:57 05:00 05:00 RBC 3.62 L (3.80-5.40) m/uL Hgb 10.5 L (11.4-16.0) gm/dL Hct 33.1 L (34.0-46.0) % Lymphocytes # 0.4 L (1.0-4.8) k/uL ABG pO2 67 L (83-108) mmHg ABG HCO3 27 H (21-25) mmol/L ABG Total CO2 28 H (19-24) mmol/L ABG O2 Saturation 93.2 L (94-97) % Glucose 113 H (74-99) mg/dL POC Glucose (mg/dL) (75-99) mg/dL AST 48 H (14-36) U/L Lactate Dehydrogenase 925 H (313-618) U/L Creatine Kinase 518 H (30-135) U/L C-Reactive Protein 345.9 H (<10.0) mg/L Total Protein 5.6 L (6.3-8.2) g/dL Albumin 2.5 L (3.5-5.0) g/dL 12/03/19 12/03/19 12/03/19 Range/Units 06:08 09:23 11:29 RBC (3.80-5.40) m/uL Hgb (11.4-16.0) gm/dL Hct (34.0-46.0) % Lymphocytes # (1.0-4.8) k/uL ABG pO2 67 L (83-108) mmHg ABG HCO3 27 H (21-25) mmol/L ABG Total CO2 28 H (19-24) mmol/L ABG O2 Saturation (94-97) % Glucose (74-99) mg/dL POC Glucose (mg/dL) 113 H 135 H (75-99) mg/dL AST (14-36) U/L Lactate Dehydrogenase (313-618) U/L Creatine Kinase (30-135) U/L C-Reactive Protein (<10.0) mg/L Total Protein (6.3-8.2) g/dL Albumin (3.5-5.0) g/dL 12/03/19 Range/Units 17:48 RBC (3.80-5.40) m/uL Hgb (11.4-16.0) gm/dL Hct (34.0-46.0) % Lymphocytes # (1.0-4.8) k/uL ABG pO2 (83-108) mmHg ABG HCO3 (21-25) mmol/L ABG Total CO2 (19-24) mmol/L ABG O2 Saturation (94-97) % Glucose (74-99) mg/dL POC Glucose (mg/dL) 138 H (75-99) mg/dL AST (14-36) U/L Lactate Dehydrogenase (313-618) U/L Creatine Kinase (30-135) U/L C-Reactive Protein (<10.0) mg/L Total Protein (6.3-8.2) g/dL Albumin (3.5-5.0) g/dL Microbiology - Last 24 Hours (Table) 12/01/19 00:23 Gram Stain - Final Sputum Sputum Culture - Final Keli albicans 11/29/19 23:30 Urine Culture - Final Urine,Voided Klebsiella pneumoniae Assessment and Plan Assessment: Bilateral pneumonia secondary to COVID 19 with ARDS and acute hypoxic respiratory failure requiring intubation -Continue with Plaquenil -Symbicort, albuterol inhaler -Vent management per critical care -Follow d-dimer, LDH, CRP, CK, and troponin -Follow chest x-ray until clear -Pulmonary critical care recommendations appreciated -Follow QT interval -Gentle IV fluids - echo pending Gram negative UTI - Rocephin - Await final culture Hypotension secondary to medications -Wean the Levophed as able -No signs of septic shock Hypothyroidism -Synthroid Hypertension,hx now hypotensive -Hydrochlorothiazide disconitnued -Follow blood pressures Paroxysmal atrial fibrillation -Not on rate controlling medications -Continue with Xarelto COPD without acute exacerbation -Bronchodilators -Consider steroids Dyslipidemia -Statin therapy DVT prophylaxis: Luis Discussed with: Patient Anticipated discharge: undetermined Anticipated discharge place: undetermined A total of 25 minutes was spent on the care of this complex patient more than 50% of the time was spent in counseling and care coordination.
[2019-12-04 00:16] LABS: Glucose,Whole Blood 136 mg/dL (75-99)
[2019-12-04] MEDS: NOREPINEPHRINE 4 MG in SODIUM CHLORIDE 0.9% 250 ML IV SCH ×2 (02:26→23:39)
[2019-12-04] MEDS: INSULIN ASPART (NovoLOG) 100 UNIT/ML VIAL SQ SCH ×4 (02:26→18:13)
[2019-12-04] MEDS: fentaNYL (PF) 1,000 MCG in SODIUM CHLORIDE 0.9% 80 ML IV SCH ×2 (02:27→16:14)
[2019-12-04] MEDS: PROPOFOL 1,000 MG in EMPTY BAG 1 BAG IV SCH ×5 (02:27→20:41)
[2019-12-04 05:04] LABS: ABG Base Excess 5.4 mmol/L; ABG HCO3 29 mmol/L (21-25); ABG Oxygen Saturation 95.2 % (94-97); ABG PCO2 41 mmHg (35-45); ABG PH 7.46 (7.35-7.45); ABG PO2 74 mmHg (83-108); ABG TCO2 31 mmol/L (19-24)
[2019-12-04 05:20] LABS: Allen Test Performed? no
[2019-12-04 06:19] LABS: Glucose,Whole Blood 148 mg/dL (75-99)
[2019-12-04] MEDS: LEVOTHYROXINE 100 MCG TAB PO SCH (06:22)
[2019-12-04 06:24] LABS: Basophils % (A) 0 %; Eosinophils % (A) 0 %; HCT 33.9 % (34.0-46.0); HGB 10.8 gm/dL (11.4-16.0); Lymphocytes # (A) 0.3 k/uL (1.0-4.8); Lymphocytes % (A) 6 %; MCH 29.2 pg (25.0-35.0); MCHC 31.9 g/dL (31.0-37.0); MCV 91.8 fL (80.0-100.0); Mean Platelet Volume 9.3; Monocytes # (A) 0.2 k/uL (0-1.0); Monocytes % (A) 3 %; Neutrophils # (A) 5.3 k/uL (1.3-7.7); Neutrophils % (A) 90 %; Platelet Count 262 k/uL (150-450); RBC 3.69 m/uL (3.80-5.40); RDW 13.5 % (11.5-15.5); WBC 5.9 k/uL (3.8-10.6)
[2019-12-04 06:28] LABS: ALT 16 U/L (4-34); AST 39 U/L (14-36); African American GFR (CKD) >90 (>60 ml/min/1.73 sqM); Albumin 2.6 g/dL (3.5-5.0); Alkaline Phosphatase 84 U/L (38-126); Anion Gap 4 mmol/L; Blood Urea Nitrogen 21 mg/dL (7-17); Calcium 8.4 mg/dL (8.4-10.2); Carbon Dioxide 28 mmol/L (22-30); Chloride 107 mmol/L (98-107); Glucose 149 mg/dL (74-99); LDH 880 U/L (313-618); Magnesium 2.4 mg/dL (1.6-2.3); Non-African American GFR(CKD) >90 (>60 ml/min/1.73 sqM); Potassium 3.9 mmol/L (3.5-5.1); Sodium 139 mmol/L (137-145); Total Bilirubin 0.3 mg/dL (0.2-1.3); Total Protein 5.9 g/dL (6.3-8.2)
--- NOTE | 2019-12-04 06:52 | XR ---
EXAMINATION TYPE: XR chest 1V portable DATE OF EXAM: 12/04/2019 HISTORY: Tube placement. REFERENCE: Previous study dated 12/03/2019. FINDINGS: Patient is ET tube and NG tube as well as left subclavian catheter remain in place, unchang ed in appearance. There is improved aeration at the left lung base. Interstitial and alveolar airspace disease in the r ight is unchanged. I suspect small, bilateral effusions. The heart is not enlarged. IMPRESSION: IMPROVED AERATION, LEFT LUNG BASE.
[2019-12-04 07:08] LABS: C Reactive Protein 361.9 mg/L (<10.0)
--- NOTE | 2019-12-04 07:44 | PN ---
PROGRESS NOTE REASON FOR FOLLOW UP: Acute COVID-19 pneumonia. INTERVAL HISTORY: The patient is currently afebrile and the patient is hemodynamically stable. The patient remains to be intubated on the vent. FiO2 is currently 40%. No significant purulent secretions through the ET and no diarrhea has been reported. PHYSICAL EXAMINATION: Blood pressure 127/64 with a pulse of 62, temperature 98. She is 99% on 40% FIO2. General description is an elderly female lying in bed in no distress. Respiratory system: Unlabored breathing, decreased breath sounds at the base. No wheeze. Heart S1, S2. Regular rate and rhythm. Abdomen soft, no tenderness. LABS: Hemoglobin is 10.4, white count 6.5, BUN of 16, creatinine 0.55, and is down to 925. DIAGNOSTIC IMPRESSION/PLAN: 1. Patient with acute respiratory failure which is likely multifactorial in this patient who did have a component of COVID-19 pneumonia. Patient is covered with Plaquenil to continue to finish a course of therapy. 2. Patient with a positive urine culture with Klebsiella positive for urinary tract infection covered with Rocephin. 3. Continue supportive care. MMODL / IJN: [id number] /
[2019-12-04] MEDS ORDERED: POTASSIUM BICARBONATE/CIT AC 20 MEQ TABLET.EFF NG-TUBE SCH (08:00)
[2019-12-04] MEDS: CHLORHEXIDINE GLUCONATE 15 ML CUP MUCOUS MEM SCH ×2 (08:01→20:42)
[2019-12-04] MEDS: methylPREDNISolone SOD SUCCI 40 MG/ML 1 ML VIAL IV SCH ×2 (08:01→20:42)
[2019-12-04] MEDS: ASPIRIN 81 MG PO SCH (08:03)
[2019-12-04] MEDS: HYDROXYCHLOROQUINE SULFATE 200 MG TAB PO SCH ×2 (08:03→20:42)
[2019-12-04] MEDS: ZINC SULFATE 220 MG CAP PO SCH (08:03)
[2019-12-04] MEDS: RIVAROXABAN 20 MG TAB PO SCH (08:04)
[2019-12-04] MEDS ORDERED: FUROSEMIDE 10 MG/ML 2 ML VIAL IV ONE (09:47)
[2019-12-04 11:31] LABS: Glucose,Whole Blood 133 mg/dL (75-99)
--- NOTE | 2019-12-04 13:07 | P.PN ---
Subjective Progress Note Date: 12/04/19 This is a 74-year-old -[place] female patient who lives in [place]. The patient has history of atrial fibrillation and she has been maintained on Xarelto on long-term basis. The patient felt febrile and had increased cough approximately a week ago. She end up going to [facility] where she was tested and she was confirmed to have positive: 19 infection. The patient was discharged home. However, as the patient became more short of breath and her cough that is worse, the patient presented to ED department at [facility] where she was evaluated and she was placed on high flow oxygen because of her ongoing hypoxemia. The patient's pulse ox apparently was in the low 80s and she was given supplemental oxygen including 100% nonrebreather facemask. The patient got transferred to us for further monitoring and treatment. The patient's white cell count was at 4.4 at time of admission and the patient had a lymphopenia with a lymphocyte level of 0.7. Hemoglobin was at 13.3. Platelet count was 222, LFTs are unremarkable, the troponin was negative, CRP was 122, LDH was 548, ferritin level was 723, CPK was 156 and the lactic acid level was 1.6. Chest x-ray showed bilateral pulmonary infiltrates interstitial changes bilaterally right more than left more so in the lung bases bilaterally. Clinically, despite hypoxemia, the patient seems to be quite stable and she is struggling with her breathing. She is not using some ecchymosis of breathing. She is currently on high flow oxygen at 10 L in addition to 100% on a beta facemasks and pulse ox is around 87-90%. No nausea. No vomiting. No altered mentation. No chest pain. Her cardiac rhythm is still in atrial fibrillation. The patient was started on Plaquenil. She is an ex- smoker. She has history of COPD and she has been maintained on Stiolto on outpatient basis. On 12/01/2019 and seeing this patient for a follow-up. As mentioned earlier the patient was Hospital as for an acute Covid 19 pneumonia. The patient was on 100% nonrebreather facemask. Yesterday evening, the patient's condition de compensated. As such, the patient had to be intubated and placed on a mechanical ventilator. This was done by [employer] and intubation process was successful. This morning the patient is being seen for a follow-up. The patient currently is on assist-control mode rate of 20 with tidal volume of 350 and FiO2 of 40% with a PEEP of 15. The patient is on propofol which is running at 75 g per KG pigmented and fentanyl drip is running in 1 g per KG per hour. Levothroid has also be used at a dose of 0.04 g per KG pigmented for hemodynamic support. The patient will be started on enteral feeding for nutrition support. Do not lung cancer and a triple-lumen cath was also inserted. Note that the patient is afebrile today. The patient had a T-max of 99.9. The LDH still elevated at 1140. The d-dimer is at 1.19. Blood gases from today shows a pH of 7.36 with a pCO2 of 42 and pO2 of 82. Chest x-ray shows interval insertion of the ET tube and there is bilateral basilar reticular nodular infiltrates and some increased infiltration of the upper lobes bilaterally. The patient's net fluid balance is +1.8 L over the past 24 hours. She'll be started on enteral feeding for nutritional support. She is already on a combination of zinc sulfate and Plaquenil. She was also maintained on antico agulation with Xarelto regarding her chronic atrial fibrillation. On 12/02/2019, the patient remains intubated on a mechanical ventilator. This morning, the patient is sedated with propofol of 75 mcg/kg per minute and fentanyl at all micrograms per kilogram per hour. The patient remains intubated on mechanical ventilator. The patient is an assist-control mode rate of 20 with tidal volume of 350 and FiO2 of 50% with a PEEP of 15. The patient's chest x- ray shows some limited infiltration of the lung bases along with some scattered bibasilar groundglass and reticulocyte another pulmonary infiltrates. The patient is producing adequate amount of urine output. Norepinephrine infusion is running at a low dose of 0.02 g per KG per minute. The patient developed a lower blood pressure of this pressors and the urine output are also drop. The neck fluid balance is positive troponin 9 L over the past 24 hours. No documented fever. The blood gases from today showed a pH of 7.38 with a pCO2 of 41 and pO2 of 132. The patient's LDH today's 1087 and the 50s up to 578 and the CRP level is at 300. LFTs remain nonelevated with an AST of 51 ALT of 17. Renal function is stable with a creatinine of 0.7. No significant leukocytosis. The patient has underlying lymphopenia. Enteral feeding will be started on her for nutritional support. Echocardiogram is to follow. On 12/03/2019, I'm seeing this patient for a follow-up. Clinically significantly since her the same compared to yesterday. She is sedated on propofol at the rate of 75 mcg/kg per minute and the patient is also on fentanyl at 1 mcg/kg/h. She is requiring a lot of stresses in her urine output is very much dependent that pressor. She is on norepinephrine infusion at the rate of 0.03 units per kilogram per minute. And the patient's is on a normal saline infusion at the rate of 10 mL an hour. Her net fluid balance is +0.9 L over the past 24 hours. The patient's is an assist-control mode at the rate of 20 with tidal volume of 350 and FiO2 of 40% with a PEEP of 12. Chest x-ray findings are essentially the same and unchanged compared to yesterday. The blood gases from today showed a pH of 7.44 with a pCO2 of 40 and pO2 of 67 and this was done and FiO2 of 40%. Peak airway pressure is 31. Plateau airway pressure is 27. The CRP level is at 387 which is higher compared to yesterday. The LDH level is 925 which is lower compared to yesterday. Creatinine is at 0.5. TPN is at 16. The patient is afebrile for now. The patient remains on a combination of Plaquenil and zinc sulfate. The patient is also on IV Rocephin as an empiric antibiotic coverage. No other significant events otherwise for now. She is tolerating her tube feeds which is running at the rate of 27 mL an hour. On 12/04/2019 the patient is being seen for a follow-up. She is a case of Covid 19 pneumonia/respiratory failure requiring intubation mechanical ventilation. This morning, the patient remains sedated with propofol running at 50 g and fentanyl running at 1 mcg/kg/h. Chest x-ray findings show some improved aeration of the left lung base. ET tube is in a good location. The patient has a left subclavian triple-lumen catheter in place. The patient is an assist- control mode at the rate of 20 with a tidal volume of 350 and FiO2 of 40% with a PEEP of 12. The PF ratio is 154. The peak airway pressure is 29. Static pressure is 26. The LDH level is at 880, CPK is 251, CRP is a 61, and the patient has elevated d-dimer of 4.97. Noted the patient is or the on anticoagulation with Xarelto which was given to her for her chronic atrial fibrillation and this was continued. She is tolerating her enteral feeding for support. She is in a positive fluid balance of 1 L. She is afebrile. The patient has no leukocytosis. Function is stable with a creatinine of 0.5 with a BUN of 21. Electrodes are all within normal limits. Enterofeeding is being provided at the rate of 27 mL an hour. She remains on Plaquenil. IV Solu- Medrol was added. She is receiving IV Solu Medrol 4 mg every 12 hours. She is on empiric antibiotic coverage with Rocephin. Pressor medications are unchanged. She is on normal saline at the rate of 20 mL an hour. Objective - Vital Signs Vital signs: Vital Signs Temp 98.2 F 12/04/19 12:00 Pulse 67 12/04/19 12:00 Resp 20 12/04/19 12:00 BP 104/54 12/04/19 11:00 Pulse Ox 99 12/04/19 12:00 Intake & Output 12/03/19 12/04/19 12/04/19 18:59 06:59 18:59 Intake Total 1083.528 679.393 492.638 Output Total 1890 545 320 Balance -806.472 134.393 172.638 Weight 79.9 kg Intake: IV 240 240 174 Normal Saline Pressure 24 Bag Sodium Chloride 0.9% 1, 240 240 100 000 ml @ 20 mls/hr IV . Q24H NGUYEN Rx#:[id number] cefTRIAXone 1 gm In 50 Sodium Chloride 0.9% 50 ml @ 100 mls/hr IVPB Q24HR NGUYEN Rx#:[id number] Intake, IV Titration 489.528 196.393 111.638 Amount Norepinephrine 4 mg In 69.651 4.686 11.638 Sodium Chloride 0.9% 250 ml @ 0.05 MCG/KG/MIN 13. 202 mls/hr IV .[id number] NGUYEN Rx#:[id number] Propofol 1,000 mg In 300.000 100 100 Empty Bag 1 bag @ Titrate IV .Q0M NGUYEN Rx#: [id number] cefTRIAXone 1 gm In 50 Sodium Chloride 0.9% 50 ml @ 100 mls/hr IVPB Q24HR NGUYEN Rx#:[id number] fentaNYL (PF) 1,000 mcg 69.877 91.707 In Sodium Chloride 0.9% 80 ml @ 1 MCG/KG/HR 6.93 mls/hr IV .[id number] NGUYEN Rx #:[id number] Tube Feeding 324 243 27 Other 30 180 Output: Urine 1890 545 320 Other: Voiding Method Indwelling Catheter Indwelling Catheter Indwelling Catheter ABP, PAP, CO, CI - Last Documented Arterial Blood Pressure 114/51 - Exam Gen. appearance currently the patient is calm comfortable not to this is intubated on a mechanical ventilator. Orogastric and orotracheal tube are both in place. The patient has a left subclavian triple catheter in place. Head exam was generally normal. There was no scleral icterus or corneal arcus. Mucous membranes were moist. Neck was supple and without jugular venous distension, thyromegaly, or carotid bruits. Carotids were easily palpable bilaterally. There was no adenopathy. Lungs sounds are diminished and there is crackles at lung bases bilaterally. No wheezes or rhonchi. Cardiac exam revealed the PMI to be normally situated and sized. The rhythm was regular and no extrasystoles were noted during several minutes of auscultation. The first and second heart sounds were normal and the rhythm is irregular consistent with atrial fibrillation and physiologic splitting of the second h eart sound was noted. There were no murmurs, rubs, clicks, or gallops. Abdominal exam revealed normal bowel sounds. The abdomen was soft, non-tender, and without masses, organomegaly, or appreciable enlargement of the abdominal aorta. Examination of the extremities revealed easily palpable radial, femoral and pedal pulses. There was no cyanosis, clubbing or edema. Examination of the skin revealed no evidence of significant rashes, suspicious appearing nevi or other concerning lesions. Neurologically the patient is well sedated and calm and comfortable and she withdraws to painful stimulation. - Labs CBC & Chem 7: 12/04/19 05:00 12/04/19 05:00 Labs: Abnormal Lab Results - Last 24 Hours (Table) 12/03/19 12/04/19 12/04/19 Range/Units 17:48 00:15 05:00 RBC (3.80-5.40) m/uL Hgb (11.4-16.0) gm/dL Hct (34.0-46.0) % Lymphocytes # (1.0-4.8) k/uL D-Dimer (<0.60) mg/L FEU ABG pH (7.35-7.45) ABG pO2 (83-108) mmHg ABG HCO3 (21-25) mmol/L ABG Total CO2 (19-24) mmol/L BUN (7-17) mg/dL Glucose (74-99) mg/dL POC Glucose (mg/dL) 138 H 136 H (75-99) mg/dL Magnesium (1.6-2.3) mg/dL AST (14-36) U/L Lactate Dehydrogenase (313-618) U/L Creatine Kinase 251 H (30-135) U/L C-Reactive Protein 361.9 H (<10.0) mg/L Total Protein (6.3-8.2) g/dL Albumin (3.5-5.0) g/dL 12/04/19 12/04/19 12/04/19 Range/Units 05:00 05:00 05:00 RBC 3.69 L (3.80-5.40) m/uL Hgb 10.8 L (11.4-16.0) gm/dL Hct 33.9 L (34.0-46.0) % Lymphocytes # 0.3 L (1.0-4.8) k/uL D-Dimer 4.97 H (<0.60) mg/L FEU ABG pH (7.35-7.45) ABG pO2 (83-108) mmHg ABG HCO3 (21-25) mmol/L ABG Total CO2 (19-24) mmol/L BUN 21 H (7-17) mg/dL Glucose 149 H (74-99) mg/dL POC Glucose (mg/dL) (75-99) mg/dL Magnesium 2.4 H (1.6-2.3) mg/dL AST 39 H (14-36) U/L Lactate Dehydrogenase 880 H (313-618) U/L Creatine Kinase (30-135) U/L C-Reactive Protein (<10.0) mg/L Total Protein 5.9 L (6.3-8.2) g/dL Albumin 2.6 L (3.5-5.0) g/dL 12/04/19 12/04/19 12/04/19 Range/Units 05:02 06:17 11:20 RBC (3.80-5.40) m/uL Hgb (11.4-16.0) gm/dL Hct (34.0-46.0) % Lymphocytes # (1.0-4.8) k/uL D-Dimer (<0.60) mg/L FEU ABG pH 7.46 H (7.35-7.45) ABG pO2 74 L (83-108) mmHg ABG HCO3 29 H (21-25) mmol/L ABG Total CO2 31 H (19-24) mmol/L BUN (7-17) mg/dL Glucose (74-99) mg/dL POC Glucose (mg/dL) 148 H 133 H (75-99) mg/dL Magnesium (1.6-2.3) mg/dL AST (14-36) U/L Lactate Dehydrogenase (313-618) U/L Creatine Kinase (30-135) U/L C-Reactive Protein (<10.0) mg/L Total Protein (6.3-8.2) g/dL Albumin (3.5-5.0) g/dL Microbiology - Last 24 Hours (Table) 12/01/19 00:23 Gram Stain - Final Sputum Sputum Culture - Final Keli albicans 11/29/19 23:30 Urine Culture - Final Urine,Voided Klebsiella pneumoniae Assessment and Plan Plan: 1 acute Covid 19 pneumonia with secondary hypoxic respiratory failure/ARDS. The patient remains intubated on a mechanical ventilator. The patient has a PF ratio of 154. The LDH is improving. CRP level is slightly elevated. D-dimer is also elevated at 4.97. She is afebrile. Interleukin-6 levels are still pending in consultation for tocalizumab treatment. The patient is sedated with propofol and fentanyl a combination. The patient is on a combination of Plaquenil and zinc sulfate. Peak and plateau airway pressures are still elevated and the values are fine 9 and 26 respectively.. She is afebrile. 2 acute hypoxic respiratory failure and the patient is currently intubated on a mechanical ventilator. 3 low-grade fever, currently afebrile 4 COPD 5 hypertension 6 chronic atrial fibrillation, controlled rate currently on Xarelto 7 hypotension requiring low-dose pressors for hemodynamic support. 8 gram-negative UTI with Klebsiella pneumoniae #9 sputum cultures indicating Keli albicans, likely a colonizer Plan . Continue vent support . Keep the patient on same vent settings with a PEEP to 12. the fio2 down to 40%. I'm going to try to cut down the PEEP to 11 cm of water and since the patient's oxygenation and see if the patient is able to maintain a saturation above 92%. Continue Plaquenil and zinc sulfate combination, awaiting interleukin-6 levels in in consideration for Actemra The LDH is improving. D-dimer is still elevated. C-reactive protein is also elevated. Enteral feeding for nutritional support Give the patient undergoes of Lasix 20 mg IV push Monitor fever pattern, currently afebrile Monitored in telemetry markers including LDH and C-reactive protein The patient is currently in ARDS. The patient will continue Solu-Medrol 40 mg every 12 hours for the next 3-7 days and the duration of the treatment will be decided upon her clinical response Continue IV Rocephin regarding Klebsiella in the urine Continue rest of the supportive care including enteral feeding for nutritional support Condition is critical. We'll continue to follow. We'll contact the family and Rowdy and inform them of the above-mentioned changes. This induration was on a more than 30 minutes excluding time to do any procedures. Time with Patient: Greater than 30
[2019-12-04 13:51] LABS: ABG Base Excess 6.4 mmol/L; ABG HCO3 30 mmol/L (21-25); ABG Oxygen Saturation 95.8 % (94-97); ABG PCO2 40 mmHg (35-45); ABG PH 7.48 (7.35-7.45); ABG PO2 73 mmHg (83-108); ABG TCO2 31 mmol/L (19-24); Allen Test Performed? Yes
[2019-12-04] MEDS: SODIUM CHLORIDE 0.9% 1,000 ML IV SCH (14:25)
[2019-12-04] MEDS: PANTOPRAZOLE 40 MG/10 ML VIAL IVP SCH (15:26)
[2019-12-04 17:06] LABS: Glucose,Whole Blood 131 mg/dL (75-99)
--- NOTE | 2019-12-04 20:07 | P.PN ---
Subjective Progress Note Date: 12/04/19 (delayed charting ssen at 1145) Principal diagnosis: shortness of breath Patient is a 74-year-old -[place] female with a past medical history of hypertension, mild COPD, and paroxysmal atrial fibrillation on Xarelto who presented to [facility] emergency department with complaints of coughing, headache, and shortness of breath. She was transferred here due to the covert r elief effort. Initial evaluation consistent with atypical or viral pneumonia with probable covert 19. She had testing done at [facility] which was positive for COVID-19. She was started on hydroxychloroquine, zinc, and as needed Tylenol. Pulmonary was consulted. Her O2 requirement continued to increase. Chest x-ray consistent with pneumonia/ARDS picture. We had a long discussion she was okay with elective intubation. She was intubated on the afternoon of 11/30/2019. She did require propofol, fentanyl, norepinephrine, and antibiotics. She had not made significant progress by 12/03/2019 and continued to spike fevers. She was started on Solumedrol on 12/04/2019. Patient seen and examined at bedside. Sedated on vent. Per nursing no acute events overnight. Objective - Vital Signs Vital signs: Vital Signs Temp 98.2 F 12/04/19 12:00 Pulse 58 L 12/04/19 16:00 Resp 20 12/04/19 16:00 BP 98/50 12/04/19 16:00 Pulse Ox 99 12/04/19 16:00 Intake & Output 12/03/19 12/04/19 12/04/19 18:59 06:59 18:59 Intake Total 1083.528 679.393 991.574 Output Total 1890 545 725 Balance -806.472 134.393 266.574 Weight 79.9 kg Intake: IV 240 240 329 Normal Saline Pressure 54 Bag Sodium Chloride 0.9% 1, 240 240 225 000 ml @ 20 mls/hr IV . Q24H NGUYEN Rx#:[id number] cefTRIAXone 1 gm In 50 Sodium Chloride 0.9% 50 ml @ 100 mls/hr IVPB Q24HR NGUYEN Rx#:[id number] Intake, IV Titration 489.528 196.393 314.574 Amount Norepinephrine 4 mg In 69.651 4.686 19.056 Sodium Chloride 0.9% 250 ml @ 0.05 MCG/KG/MIN 13. 202 mls/hr IV .[id number] NGUYEN Rx#:[id number] Propofol 1,000 mg In 300.000 100 200 Empty Bag 1 bag @ Titrate IV .Q0M NGUYEN Rx#: [id number] cefTRIAXone 1 gm In 50 Sodium Chloride 0.9% 50 ml @ 100 mls/hr IVPB Q24HR NGUYEN Rx#:[id number] fentaNYL (PF) 1,000 mcg 69.877 91.707 95.518 In Sodium Chloride 0.9% 80 ml @ 1 MCG/KG/HR 6.93 mls/hr IV .[id number] NGUYEN Rx #:[id number] Tube Feeding 324 243 108 Other 30 240 Output: Urine 1890 545 725 Other: Voiding Method Indwelling Catheter Indwelling Catheter Indwelling Catheter ABP, PAP, CO, CI - Last Documented Arterial Blood Pressure 110/49 - Exam General: Ill appearing, no distress distress, appears at stated age Derm: warm, dry Head: atraumatic, normocephalic, symmetric Eyes: No conjunctival injecture, no lid lesion anicteric sclera Mouth: no lip lesion, appears dry, ET tube in place Cardiovascular: S1S2 reg, no murmur, positive posterior tibial pulse bilateral, Lungs: Coarse breath sounds bilaterally, no accessory muscle use, on vent Abdominal: soft, no appreciable organomegaly Ext: no gross muscle atrophy, no edema, no contractures Neuro: w/d to painful stimuli, PERRL Psych: Sedated - Labs CBC & Chem 7: 12/04/19 05:00 12/04/19 05:00 Labs: Abnormal Lab Results - Last 24 Hours (Table) 12/03/19 12/04/19 12/04/19 Range/Units 17:48 00:15 05:00 RBC (3.80-5.40) m/uL Hgb (11.4-16.0) gm/dL Hct (34.0-46.0) % Lymphocytes # (1.0-4.8) k/uL D-Dimer (<0.60) mg/L FEU ABG pH (7.35-7.45) ABG pO2 (83-108) mmHg ABG HCO3 (21-25) mmol/L ABG Total CO2 (19-24) mmol/L BUN (7-17) mg/dL Glucose (74-99) mg/dL POC Glucose (mg/dL) 138 H 136 H (75-99) mg/dL Magnesium (1.6-2.3) mg/dL AST (14-36) U/L Lactate Dehydrogenase (313-618) U/L Creatine Kinase 251 H (30-135) U/L C-Reactive Protein 361.9 H (<10.0) mg/L Total Protein (6.3-8.2) g/dL Albumin (3.5-5.0) g/dL 12/04/19 12/04/19 12/04/19 Range/Units 05:00 05:00 05:00 RBC 3.69 L (3.80-5.40) m/uL Hgb 10.8 L (11.4-16.0) gm/dL Hct 33.9 L (34.0-46.0) % Lymphocytes # 0.3 L (1.0-4.8) k/uL D-Dimer 4.97 H (<0.60) mg/L FEU ABG pH (7.35-7.45) ABG pO2 (83-108) mmHg ABG HCO3 (21-25) mmol/L ABG Total CO2 (19-24) mmol/L BUN 21 H (7-17) mg/dL Glucose 149 H (74-99) mg/dL POC Glucose (mg/dL) (75-99) mg/dL Magnesium 2.4 H (1.6-2.3) mg/dL AST 39 H (14-36) U/L Lactate Dehydrogenase 880 H (313-618) U/L Creatine Kinase (30-135) U/L C-Reactive Protein (<10.0) mg/L Total Protein 5.9 L (6.3-8.2) g/dL Albumin 2.6 L (3.5-5.0) g/dL 12/04/19 12/04/19 12/04/19 Range/Units 05:02 06:17 11:20 RBC (3.80-5.40) m/uL Hgb (11.4-16.0) gm/dL Hct (34.0-46.0) % Lymphocytes # (1.0-4.8) k/uL D-Dimer (<0.60) mg/L FEU ABG pH 7.46 H (7.35-7.45) ABG pO2 74 L (83-108) mmHg ABG HCO3 29 H (21-25) mmol/L ABG Total CO2 31 H (19-24) mmol/L BUN (7-17) mg/dL Glucose (74-99) mg/dL POC Glucose (mg/dL) 148 H 133 H (75-99) mg/dL Magnesium (1.6-2.3) mg/dL AST (14-36) U/L Lactate Dehydrogenase (313-618) U/L Creatine Kinase (30-135) U/L C-Reactive Protein (<10.0) mg/L Total Protein (6.3-8.2) g/dL Albumin (3.5-5.0) g/dL 12/04/19 Range/Units 13:42 RBC (3.80-5.40) m/uL Hgb (11.4-16.0) gm/dL Hct (34.0-46.0) % Lymphocytes # (1.0-4.8) k/uL D-Dimer (<0.60) mg/L FEU ABG pH 7.48 H (7.35-7.45) ABG pO2 73 L (83-108) mmHg ABG HCO3 30 H (21-25) mmol/L ABG Total CO2 31 H (19-24) mmol/L BUN (7-17) mg/dL Glucose (74-99) mg/dL POC Glucose (mg/dL) (75-99) mg/dL Magnesium (1.6-2.3) mg/dL AST (14-36) U/L Lactate Dehydrogenase (313-618) U/L Creatine Kinase (30-135) U/L C-Reactive Protein (<10.0) mg/L Total Protein (6.3-8.2) g/dL Albumin (3.5-5.0) g/dL Assessment and Plan Assessment: Bilateral pneumonia secondary to COVID 19 with ARDS and acute hypoxic respiratory failure requiring intubation -Continue with Plaquenil, steroids initiated by pulmonary -Symbicort, albuterol inhaler -Vent management per critical care -Follow d-dimer, LDH, CRP, CK, and troponin -Follow chest x-ray until clear -Pulmonary critical care recommendations appreciated -Follow QT interval -Gentle IV fluids - echo pending Klebsiella UTI - Rocephin D # 3 Hypotension secondary to medications -Wean the Levophed as able -No signs of septic shock Anemic, undetermined etiology - suspect due to ICU stay as was normal on admission - follow CBC Hypothyroidism -Synthroid Hypertension,hx now hypotensive -Hydrochlorothiazide discontinued -Follow blood pressures Paroxysmal atrial fibrillation -Not on rate controlling medications -Continue with Xarelto COPD without acute exacerbation -Bronchodilators Dyslipidemia -Statin therapy DVT prophylaxis: Xarelto Discussed with: Patient Anticipated discharge: undetermined Anticipated discharge place: undetermined A total of 35 minutes was spent on the care of this complex patient more than 50% of the time was spent in counseling and care coordination.
--- NOTE | 2019-12-04 21:18 | PN ---
PROGRESS NOTE DATE OF SERVICE: 12/04/2019 REASON FOR FOLLOWUP: Acute COVID-19 pneumonia. INTERVAL HISTORY: The patient is currently afebrile. The patient is hemodynamically stable. The patient remains to be intubated on the vent. FiO2 is currently 40%. No significant purulent secretions through the ET and no diarrhea reported. PHYSICAL EXAMINATION: Blood pressure 107/45, pulse of 56. Temperature 98. She is 98% on 40% FiO2. General description is an elderly female lying in bed in no distress. Respiratory system: Unlabored breathing, decreased breath sounds at the base. No wheeze. Heart S1, S2. Regular rate and rhythm. Abdomen soft, no tenderness. LABS: Hemoglobin is 10.8, white count 5.9. BUN of 21, creatinine 0.55. Electrolytes have been normal and . DIAGNOSTIC IMPRESSION/PLAN: 1. Patient with acute vent dependent respiratory failure, which is likely multifactorial. This patient did have a component of COVID-19 pneumonia. Patient is covered with Plaquenil to continue along with respiratory support and zinc. 2. Klebsiella urinary tract infection covered with Rocephin. MMODL / IJN: [id number] /
[2019-12-05 00:17] LABS: Glucose,Whole Blood 133 mg/dL (75-99)
[2019-12-05] MEDS: INSULIN ASPART (NovoLOG) 100 UNIT/ML VIAL SQ SCH ×4 (00:17→18:36)
[2019-12-05] MEDS: fentaNYL (PF) 1,000 MCG in SODIUM CHLORIDE 0.9% 80 ML IV SCH (04:12)
[2019-12-05] MEDS: LEVOTHYROXINE 100 MCG TAB PO SCH (04:13)
[2019-12-05 04:43] LABS: Basophils % (A) 0 %; Eosinophils % (A) 0 %; HCT 32.3 % (34.0-46.0); HGB 10.2 gm/dL (11.4-16.0); Hypochromasia Slight; Lymphocytes # (A) 0.4 k/uL (1.0-4.8); Lymphocytes % (A) 5 %; MCHC 31.6 g/dL (31.0-37.0); MCV 91.8 fL (80.0-100.0); Mean Platelet Volume 8.3; Monocytes # (A) 0.3 k/uL (0-1.0); Monocytes % (A) 4 %; Neutrophils # (A) 7.2 k/uL (1.3-7.7); Neutrophils % (A) 90 %; Platelet Count 332 k/uL (150-450); RBC 3.51 m/uL (3.80-5.40); RDW 13.6 % (11.5-15.5)
[2019-12-05 05:00] LABS: ALT 14 U/L (4-34); AST 29 U/L (14-36); African American GFR (CKD) >90 (>60 ml/min/1.73 sqM); Albumin 2.5 g/dL (3.5-5.0); Alkaline Phosphatase 75 U/L (38-126); Anion Gap 5 mmol/L; Blood Urea Nitrogen 32 mg/dL (7-17); Calcium 8.2 mg/dL (8.4-10.2); Carbon Dioxide 29 mmol/L (22-30); Chloride 106 mmol/L (98-107); Creatine Kinase 117 U/L (30-135); Glucose 128 mg/dL (74-99); LDH 822 U/L (313-618); Non-African American GFR(CKD) 90 (>60 ml/min/1.73 sqM); Potassium 4.1 mmol/L (3.5-5.1); Sodium 140 mmol/L (137-145); Total Bilirubin 0.3 mg/dL (0.2-1.3); Total Protein 5.8 g/dL (6.3-8.2)
[2019-12-05 05:10] LABS: ABG Base Excess 5.3 mmol/L; ABG HCO3 29 mmol/L (21-25); ABG Oxygen Saturation 95.7 % (94-97); ABG PCO2 42 mmHg (35-45); ABG PH 7.45 (7.35-7.45); ABG PO2 79 mmHg (83-108); ABG TCO2 31 mmol/L (19-24); Allen Test Performed? Yes
[2019-12-05 05:30] LABS: C Reactive Protein 169.7 mg/L (<10.0)
--- NOTE | 2019-12-05 07:43 | XR ---
EXAMINATION TYPE: XR chest 1V portable DATE OF EXAM: 12/05/2019 COMPARISON: 12/04/2019 HISTORY: Ventilatory dependent respiratory failure. TECHNIQUE: Single frontal view of the chest is obtained. FINDINGS: Bibasilar strand-like opacities are stable. Endotracheal tube, enteric tube and left subcl vianney approach central venous catheter are also stable. Cardiomediastinal silhouette is nonenlarged a nd stable with atrial septal closure device noted. No acute osseous pathology. Wording of the left he midiaphragm is again seen. There is also blunting of the right costophrenic angle. IMPRESSION: Similar strand-like bibasilar opacities and trace pleural effusions. Stable lines and tu bes.
[2019-12-05] MEDS: methylPREDNISolone SOD SUCCI 40 MG/ML 1 ML VIAL IV SCH ×2 (08:48→20:11)
[2019-12-05] MEDS: HYDROXYCHLOROQUINE SULFATE 200 MG TAB PO SCH ×2 (08:48→20:11)
[2019-12-05] MEDS: ZINC SULFATE 220 MG CAP PO SCH (08:48)
[2019-12-05] MEDS: ASPIRIN 81 MG PO SCH (08:48)
[2019-12-05] MEDS: RIVAROXABAN 20 MG TAB PO SCH (08:48)
[2019-12-05] MEDS: CHLORHEXIDINE GLUCONATE 15 ML CUP MUCOUS MEM SCH ×2 (08:48→20:11)
[2019-12-05] MEDS: PANTOPRAZOLE 40 MG/10 ML VIAL IVP SCH (08:51)
[2019-12-05] MEDS: PROPOFOL 1,000 MG in EMPTY BAG 1 BAG IV SCH (10:03)
[2019-12-05 11:04] LABS: Ferritin 431.8 ng/mL (10.0-291.0)
[2019-12-05 12:15] LABS: Glucose,Whole Blood 135 mg/dL (75-99)
[2019-12-05 12:42] LABS: Ferritin 460.1 ng/mL (10.0-291.0)
--- NOTE | 2019-12-05 12:59 | P.PN ---
Subjective Progress Note Date: 12/05/19 Principal diagnosis: Acute covid 19 pneumonia and acute hypoxic respiratory failure, secondary to pneumonia and ARDS This is a 74-year-old -[place] female patient who lives in [place]. The patient has history of atrial fibrillation and she has been maintained on Xarelto on long-term basis. The patient felt febrile and had increased cough approximately a week ago. She end up going to [facility] where she was tested and she was confirmed to have positive: 19 infection. The patient was discharged home. However, as the patient became more short of b reath and her cough that is worse, the patient presented to ED department at [facility] where she was evaluated and she was placed on high flow oxygen because of her ongoing hypoxemia. The patient's pulse ox apparently was in the low 80s and she was given supplemental oxygen including 100% nonrebreather facemask. The patient got transferred to us for further monitoring and treatment. The patient's white cell count was at 4.4 at time of admission and the patient had a lymphopenia with a lymphocyte level of 0.7. Hemoglobin was at 13.3. Platelet count was 222, LFTs are unremarkable, the troponin was negative, CRP was 122, LDH was 548, ferritin level was 723, CPK was 156 and the lactic acid level was 1.6. Chest x-ray showed bilateral pulmonary infiltrates interstitial changes bilaterally right more than left more so in the lung bases bilaterally. Clinically, despite hypoxemia, the patient seems to be quite stable and she is struggling with her breathing. She is not using some ecchymosis of breathing. She is currently on high flow oxygen at 10 L in addition to 100% on a beta facemasks and pulse ox is around 87-90%. No nausea. No vomiting. No altered mentation. No chest pain. Her cardiac rhythm is still in atrial fibrillation. The patient was started on Plaquenil. She is an ex- smoker. She has history of COPD and she has been maintained on Stiolto on outpatient basis. On 12/01/2019 and seeing this patient for a follow-up. As mentioned earlier the patient was Hospital as for an acute Covid 19 pneumonia. The patient was on 100% nonrebreather facemask. Yesterday evening, the patient's condition decompensated. As such, the patient had to be intubated and placed on a mechanical ventilator. This was done by [employer] and intubation process was successful. This morning the patient is being seen for a follow-up. The patient currently is on assist-control mode rate of 20 with tidal volume of 350 and FiO2 of 40% with a PEEP of 15. The patient is on propofol which is running at 75 g per KG pigmented and fentanyl drip is running in 1 g per KG per hour. Levothroid has also be used at a dose of 0.04 g per KG pigmented for hemodynamic support. The patient will be started on enteral feeding for nutrition support. Do not lung cancer and a triple-lumen cath was also inserted. Note that the patient is afebrile today. The patient had a T-max of 99.9. The LDH still elevated at 1140. The d-dimer is at 1.19. Blood gases from today shows a pH of 7.36 with a pCO2 of 42 and pO2 of 82. Chest x-ray shows interval insertion of the ET tube and there is bilateral basilar reticular nodular infiltrates and some increased infiltration of the upper lobes bilaterally. The patient's net fluid balance is +1.8 L over the past 24 hours. She'll be started on enteral feeding for nutritional support. She is already on a combination of zinc sulfate and Plaquenil. She was also maintained on anticoagulation with Xarelto regarding her chronic atrial fibrillation. On 12/02/2019, the patient remains intubated on a mechanical ventilator. This morning, the patient is sedated with propofol of 75 mcg/kg per minute and fentanyl at all micrograms per kilogram per hour. The patient remains intubated on mechanical ventilator. The patient is an assist-control mode rate of 20 with tidal volume of 350 and FiO2 of 50% with a PEEP of 15. The patient's chest x- ray shows some limited infiltration of the lung bases along with some scattered bibasilar groundglass and reticulocyte another pulmonary infiltrates. The patient is producing adequate amount of urine output. Norepinephrine infusion is running at a low dose of 0.02 g per KG per minute. The patient developed a lower blood pressure of this pressors and the urine output are also drop. The neck fluid balance is positive troponin 9 L over the past 24 hours. No documented fever. The blood gases from today showed a pH of 7.38 with a pCO2 of 41 and pO2 of 132. The patient's LDH today's 1087 and the 50s up to 578 and the CRP level is at 300. LFTs remain nonelevated with an AST of 51 ALT of 17. Renal function is stable with a creatinine of 0.7. No significant leukocytosis. The patient has underlying lymphopenia. Enteral feeding will be started on her for nutritional support. Echocardiogram is to follow. On 12/03/2019, I'm seeing this patient for a follow-up. Clinically signific antly since her the same compared to yesterday. She is sedated on propofol at the rate of 75 mcg/kg per minute and the patient is also on fentanyl at 1 mcg/kg/h. She is requiring a lot of stresses in her urine output is very much dependent that pressor. She is on norepinephrine infusion at the rate of 0.03 units per kilogram per minute. And the patient's is on a normal saline infusion at the rate of 10 mL an hour. Her net fluid balance is +0.9 L over the past 24 hours. The patient's is an assist-control mode at the rate of 20 with tidal volume of 350 and FiO2 of 40% with a PEEP of 12. Chest x-ray findings are essentially the same and unchanged compared to yesterday. The blood gases from today showed a pH of 7.44 with a pCO2 of 40 and pO2 of 67 and this was done and FiO2 of 40%. Peak airway pressure is 31. Plateau airway pressure is 27. The CRP level is at 387 which is higher compared to yesterday. The LDH level is 925 which is lower compared to yesterday. Creatinine is at 0.5. TPN is at 16. The patient is afebrile for now. The patient remains on a combination of Plaquenil and zinc sulfate. The patient is also on IV Rocephin as an empiric antibiotic coverage. No other significant events otherwise for now. She is tolerating her tube feeds which is running at the rate of 27 mL an hour. On 12/04/2019 the patient is being seen for a follow-up. She is a case of Covid 19 pneumonia/respiratory failure requiring intubation mechanical ventilation. This morning, the patient remains sedated with propofol running at 50 g and fentanyl running at 1 mcg/kg/h. Chest x-ray findings show some improved aeration of the left lung base. ET tube is in a good location. The patient has a left subclavian triple-lumen catheter in place. The patient is an assist- control mode at the rate of 20 with a tidal volume of 350 and FiO2 of 40% with a PEEP of 12. The PF ratio is 154. The peak airway pressure is 29. Static pressure is 26. The LDH level is at 880, CPK is 251, CRP is a 61, and the patient has elevated d-dimer of 4.97. Noted the patient is or the on anticoag ulation with Xarelto which was given to her for her chronic atrial fibrillation and this was continued. She is tolerating her enteral feeding for support. She is in a positive fluid balance of 1 L. She is afebrile. The patient has no leukocytosis. Function is stable with a creatinine of 0.5 with a BUN of 21. Electrodes are all within normal limits. Enterofeeding is being provided at the rate of 27 mL an hour. She remains on Plaquenil. IV Solu-Medrol was added. She is receiving IV Solu Medrol 4 mg every 12 hours. She is on empiric antibiotic coverage with Rocephin. Pressor medications are unchanged. She is on normal saline at the rate of 20 mL an hour. Reevaluated today on 12/05/19, patient remains intubated and mechanically ventilated, her ventilator settings are assist control rate of 20 tidal volume of 350 FiO2 40%, and the PEEP was brought to 8 from 11. ABG showed a pO2 of 79 pCO2 of 42 pH of 7.45. Her peak airway pressure is 30 left toe pressure is 25. Chest x-ray continues to show by basilar infiltrates. Patient remains on fentanyl at 1 mcg/kg/h, propofol at 50 mcg/kg/m, norepinephrine at 0.005 mcg/kg/m. Receiving Plaquenil, zinc, Solu-Medrol, and ceftriaxone. Markers including ferritin is 460, LDH is a 22, C-reactive protein is 170 liver enzymes are normal. Patient remains on enteral feeding. Remains on Xarelto 4 history of chronic atrial fibrillation. Renal functioning is normal. Electrodes lites are normal. IV fluid rate remained the same. Objective - Vital Signs Vital signs: Vital Signs Temp 98.4 F 12/05/19 12:00 Pulse 64 12/05/19 12:00 Resp 20 12/05/19 12:00 BP 117/58 12/05/19 12:00 Pulse Ox 100 12/05/19 12:00 Intake & Output 12/04/19 12/05/19 12/05/19 18:59 06:59 18:59 Intake Total 1265.574 837.874 418.601 Output Total 820 355 305 Balance 445.574 482.874 113.601 Weight 78.5 kg 78.5 kg Intake: IV 422 341 186 Normal Saline Pressure 72 66 36 Bag Sodium Chloride 0.9% 1, 300 275 150 000 ml @ 20 mls/hr IV . Q24H NGUYEN Rx#:[id number] cefTRIAXone 1 gm In 50 Sodium Chloride 0.9% 50 ml @ 100 mls/hr IVPB Q24HR NGUYEN Rx#:[id number] Intake, IV Titration 414.574 226.874 37.601 Amount Norepinephrine 4 mg In 19.056 0 Sodium Chloride 0.9% 250 ml @ 0.05 MCG/KG/MIN 13. 202 mls/hr IV .[id number] NGUYEN Rx#:[id number] Propofol 1,000 mg In 300 143.945 37.601 Empty Bag 1 bag @ Titrate IV .Q0M NGUYEN Rx#: [id number] fentaNYL (PF) 1,000 mcg 95.518 82.929 In Sodium Chloride 0.9% 80 ml @ 1 MCG/KG/HR 6.93 mls/hr IV .[id number] NGUYEN Rx #:[id number] Tube Feeding 189 270 135 Other 240 60 Output: Urine 820 355 305 Other: Voiding Method Indwelling Catheter Indwelling Catheter Indwelling Catheter ABP, PAP, CO, CI - Last Documented Arterial Blood Pressure 121/49 - Exam Physical Exam revealed 74-year-old female in no distress. Intubated and mechanically ventilated and sedated. HEENT:: PERRLA, EOMI, no icterus, left subclavian triple-lumen catheter is noted in place. Head: Atraumatic normocephalic endotracheal tube and orogastric tubes are intact. [No neck masses.] [No thyromegaly.] [No JVD.] Chest: [Crackles at the bases, no rhonchi and no wheezes. Cardiac Exam: Irregular irregular rhythm. [Normal S1 and S2, no S3 gallop, no murmur.] Abdomen: [Soft, nontender, no megaly, no rebound, no guarding, normal bowel sounds.] Extremities: [No clubbing, no edema, no cyanosis.] Neurological Exam: [Cannot be assessed. Patient is sedated on propofol. And fentanyl. Psychiatric: Cannot be assessed, intubated and mechanically ventilated. Sedated on propofol and fentanyl. Skin: No rashes. - Labs CBC & Chem 7: 12/05/19 04:15 12/05/19 04:15 Labs: Abnormal Lab Results - Last 24 Hours (Table) 12/04/19 12/04/19 12/04/19 Range/Units 05:00 13:42 17:04 RBC (3.80-5.40) m/uL Hgb (11.4-16.0) gm/dL Hct (34.0-46.0) % Lymphocytes # (1.0-4.8) k/uL D-Dimer (<0.60) mg/L FEU ABG pH 7.48 H (7.35-7.45) ABG pO2 73 L (83-108) mmHg ABG HCO3 30 H (21-25) mmol/L ABG Total CO2 31 H (19-24) mmol/L BUN (7-17) mg/dL Glucose (74-99) mg/dL POC Glucose (mg/dL) 131 H (75-99) mg/dL Calcium (8.4-10.2) mg/dL Ferritin 431.8 H (10.0-291.0) ng/mL Lactate Dehydrogenase (313-618) U/L C-Reactive Protein (<10.0) mg/L Total Protein (6.3-8.2) g/dL Albumin (3.5-5.0) g/dL 12/05/19 12/05/19 12/05/19 Range/Units 00:14 04:15 04:15 RBC 3.51 L (3.80-5.40) m/uL Hgb 10.2 L (11.4-16.0) gm/dL Hct 32.3 L (34.0-46.0) % Lymphocytes # 0.4 L (1.0-4.8) k/uL D-Dimer 7.93 H (<0.60) mg/L FEU ABG pH (7.35-7.45) ABG pO2 (83-108) mmHg ABG HCO3 (21-25) mmol/L ABG Total CO2 (19-24) mmol/L BUN (7-17) mg/dL Glucose (74-99) mg/dL POC Glucose (mg/dL) 133 H (75-99) mg/dL Calcium (8.4-10.2) mg/dL Ferritin (10.0-291.0) ng/mL Lactate Dehydrogenase (313-618) U/L C-Reactive Protein (<10.0) mg/L Total Protein (6.3-8.2) g/dL Albumin (3.5-5.0) g/dL 12/05/19 12/05/19 12/05/19 Range/Units 04:15 05:05 12:14 RBC (3.80-5.40) m/uL Hgb (11.4-16.0) gm/dL Hct (34.0-46.0) % Lymphocytes # (1.0-4.8) k/uL D-Dimer (<0.60) mg/L FEU ABG pH (7.35-7.45) ABG pO2 79 L (83-108) mmHg ABG HCO3 29 H (21-25) mmol/L ABG Total CO2 31 H (19-24) mmol/L BUN 32 H (7-17) mg/dL Glucose 128 H (74-99) mg/dL POC Glucose (mg/dL) 135 H (75-99) mg/dL Calcium 8.2 L (8.4-10.2) mg/dL Ferritin 460.1 H (10.0-291.0) ng/mL Lactate Dehydrogenase 822 H (313-618) U/L C-Reactive Protein 169.7 H (<10.0) mg/L Total Protein 5.8 L (6.3-8.2) g/dL Albumin 2.5 L (3.5-5.0) g/dL Assessment and Plan Assessment: Impression: Acute hypoxic respiratory failure secondary to pneumonia Acute covid 19 pneumonitis., LDH continues to improve. CPK continues to improve. C-reactive protein continues to improve. Ferritin level is slightly increased but improved compared to baseline. D-dimer is a bit higher today at 7.9. ARDS secondary to pneumonitis as above. History of COPD History of hypertension Chronic atrial fibrillation, on Xarelto Septic shock requiring norepinephrine and the dose is being titrated down. Acute gram-negative urinary tract infection with Klebsiella pneumoniae Recommendation: Continue ventilatory support. Cut down the PEEP to 8 from 11. Continue Plaquenil zinc and awaiting interleukin-6 levels Continue enteral feeding. Continue to monitor inflammatory markers for pneumonitis. Continue Rocephin for UTI. Continue nutritional support. Continue GI and DVT prophylaxis. Continue hemodynamic support. Patient remains critically ill, may consider sedation interruption later this afternoon, and a trial of weaning, however her ABG remains very marginal on relatively high PEEP and FiO2 of 40%. Critical care time is 35 minutes. Time with Patient: Greater than 30
[2019-12-05] MEDS ORDERED: METOPROLOL TARTRATE 5 MG/5 ML VIAL IVP ONE (15:29)
--- NOTE | 2019-12-05 16:50 | P.PN ---
Subjective Progress Note Date: 12/05/19 Principal diagnosis: COVID pneumonia Patient is a 74-year-old -[place] female with a past medical history of hypertension, mild COPD, and paroxysmal atrial fibrillation on Xarelto who presented to [facility] emergency department with complaints of coughing, headache, and shortness of breath. She was transferred here due to the covert relief effort. Initial evaluation consistent with atypical or viral pneumonia with probable covert 19. She had testing done at [facility] which was positive for COVID-19. She was started on hydroxychloroquine, zinc, and as needed Tylen ol. Pulmonary was consulted. Her O2 requirement continued to increase. Chest x-ray consistent with pneumonia/ARDS picture. We had a long discussion she was okay with elective intubation. She was intubated on the afternoon of 11/30/2019. She did require propofol, fentanyl, norepinephrine, and antibiotics. She had not made significant progress by 12/03/2019 and continued to spike fevers. She was s tarted on Solumedrol on 12/04/2019. Patient was seen and examined. Sedated on vent. Rate of 20. Tidal volume of 350. FiO2 40%. PEEP is at 8. Objective - Vital Signs Vital signs: Vital Signs Temp 98.4 F 12/05/19 12:00 Pulse 104 H 12/05/19 15:00 Resp 20 12/05/19 15:00 BP 117/58 12/05/19 12:00 Pulse Ox 100 12/05/19 15:00 Intake & Output 12/04/19 12/05/19 12/05/19 18:59 06:59 18:59 Intake Total 1265.574 837.874 670.190 Output Total 820 355 440 Balance 445.574 482.874 230.190 Weight 78.5 kg 78.5 kg Intake: IV 422 341 360 Normal Saline Pressure 72 66 60 Bag Sodium Chloride 0.9% 1, 300 275 300 000 ml @ 20 mls/hr IV . Q24H NGUYEN Rx#:[id number] cefTRIAXone 1 gm In 50 Sodium Chloride 0.9% 50 ml @ 100 mls/hr IVPB Q24HR NGUYEN Rx#:[id number] Intake, IV Titration 414.574 226.874 88.190 Amount Norepinephrine 4 mg In 19.056 0 Sodium Chloride 0.9% 250 ml @ 0.05 MCG/KG/MIN 13. 202 mls/hr IV .[id number] NGUYEN Rx#:[id number] Propofol 1,000 mg In 300 143.945 37.601 Empty Bag 1 bag @ Titrate IV .Q0M NGUYEN Rx#: [id number] fentaNYL (PF) 1,000 mcg 95.518 82.929 50.589 In Sodium Chloride 0.9% 80 ml @ 1 MCG/KG/HR 6.93 mls/hr IV .[id number] NGUYEN Rx #:[id number] Tube Feeding 189 270 162 Other 240 60 Output: Urine 820 355 440 Other: Voiding Method Indwelling Catheter Indwelling Catheter Indwelling Catheter ABP, PAP, CO, CI - Last Documented Arterial Blood Pressure 167/65 - Exam General: [non toxic], [no distress], [appears at stated age] Derm: [warm], [dry] Head: [atraumatic], [normocephalic], [symmetric] Eyes: [EOMI], [no lid lag], [anicteric sclera] Mouth: [no lip lesion], [mucus membranes moist] Cardiovascular: [S1S2 reg], [tachycardic], [positive DP pulse bilateral], Lungs: [Coarse breath sounds bilateral], [no rhonchi, no rales] , [no accessory muscle use] Abdominal: [soft], [ nontender to palpation], [no guarding], [no appreciable organomegaly] Ext: [no gross muscle atrophy], [no edema], [no contractures] Neuro: [Unable to determine] Psych: [Sedated] - Labs CBC & Chem 7: 12/05/19 04:15 12/05/19 04:15 Labs: Abnormal Lab Results - Last 24 Hours (Table) 12/04/19 12/04/19 12/05/19 Range/Units 05:00 17:04 00:14 RBC (3.80-5.40) m/uL Hgb (11.4-16.0) gm/dL Hct (34.0-46.0) % Lymphocytes # (1.0-4.8) k/uL D-Dimer (<0.60) mg/L FEU ABG pO2 (83-108) mmHg ABG HCO3 (21-25) mmol/L ABG Total CO2 (19-24) mmol/L BUN (7-17) mg/dL Glucose (74-99) mg/dL POC Glucose (mg/dL) 131 H 133 H (75-99) mg/dL Calcium (8.4-10.2) mg/dL Ferritin 431.8 H (10.0-291.0) ng/mL Lactate Dehydrogenase (313-618) U/L C-Reactive Protein (<10.0) mg/L Total Protein (6.3-8.2) g/dL Albumin (3.5-5.0) g/dL 12/05/19 12/05/19 12/05/19 Range/Units 04:15 04:15 04:15 RBC 3.51 L (3.80-5.40) m/uL Hgb 10.2 L (11.4-16.0) gm/dL Hct 32.3 L (34.0-46.0) % Lymphocytes # 0.4 L (1.0-4.8) k/uL D-Dimer 7.93 H (<0.60) mg/L FEU ABG pO2 (83-108) mmHg ABG HCO3 (21-25) mmol/L ABG Total CO2 (19-24) mmol/L BUN 32 H (7-17) mg/dL Glucose 128 H (74-99) mg/dL POC Glucose (mg/dL) (75-99) mg/dL Calcium 8.2 L (8.4-10.2) mg/dL Ferritin 460.1 H (10.0-291.0) ng/mL Lactate Dehydrogenase 822 H (313-618) U/L C-Reactive Protein 169.7 H (<10.0) mg/L Total Protein 5.8 L (6.3-8.2) g/dL Albumin 2.5 L (3.5-5.0) g/dL 12/05/19 12/05/19 Range/Units 05:05 12:14 RBC (3.80-5.40) m/uL Hgb (11.4-16.0) gm/dL Hct (34.0-46.0) % Lymphocytes # (1.0-4.8) k/uL D-Dimer (<0.60) mg/L FEU ABG pO2 79 L (83-108) mmHg ABG HCO3 29 H (21-25) mmol/L ABG Total CO2 31 H (19-24) mmol/L BUN (7-17) mg/dL Glucose (74-99) mg/dL POC Glucose (mg/dL) 135 H (75-99) mg/dL Calcium (8.4-10.2) mg/dL Ferritin (10.0-291.0) ng/mL Lactate Dehydrogenase (313-618) U/L C-Reactive Protein (<10.0) mg/L Total Protein (6.3-8.2) g/dL Albumin (3.5-5.0) g/dL Assessment and Plan Assessment: Bilateral pneumonia secondary to COVID 19 with ARDS and acute hypoxic respiratory failure requiring intubation -Continue with Plaquenil, steroids initiated by pulmonary -Symbicort, albuterol inhaler -Vent management per critical care -Trend d-dimer, LDH, CRP, CPK -Follow chest x-ray until clear -Pulmonary critical care recommendations appreciated -Follow QT interval -Gentle IV fluids Klebsiella UTI - Rocephin D # 4 Elevated d-dimer - Possible microthrombi due to above infection. Patient is on Xarelto which will be continued due to history of chronic A. fib. Hypothyroidism -Synthroid Hypertension -Hydrochlorothiazide discontinued -Follow blood pressures Paroxysmal atrial fibrillation - 1 dose of metoprolol given IV due to tachycardia heart rate persistent in the 100s -Continue with Xarelto COPD without acute exacerbation -Bronchodilators Dyslipidemia -Statin therapy DVT prophylaxis: Xarelto Discussed with: Patient Anticipated discharge: undetermined Anticipated discharge place: undetermined A total of 35 minutes was spent on the care of this complex patient more than 50% of the time was spent in counseling and care coordination.
[2019-12-05] MEDS: NOREPINEPHRINE 4 MG in SODIUM CHLORIDE 0.9% 250 ML IV SCH (17:04)
[2019-12-05 17:31] LABS: Glucose,Whole Blood 107 mg/dL (75-99)
[2019-12-05] MEDS: SODIUM CHLORIDE 0.9% 1,000 ML IV SCH (17:33)
[2019-12-05] MEDS ORDERED: METOPROLOL TARTRATE 5 MG/5 ML VIAL IVP PRN (19:38)
--- NOTE | 2019-12-05 23:13 | PN ---
PROGRESS NOTE DATE OF SERVICE: 12/05/2019 REASON FOR FOLLOWUP: Acute COVID-19 pneumonia. INTERVAL HISTORY: The patient is currently afebrile. The patient is hemodynamically stable. The patient remains intubated on the vent. FiO2 is stable at 40%. No significant purulent secretions in the ET and no diarrhea has been reported. PHYSICAL EXAMINATION: Blood pressure 129/66, pulse of 99, temperature 98. She is 99% on 40% FiO2. General description is an elderly female lying in bed in no distress. RESPIRATORY SYSTEM: Unlabored breathing. Clear to auscultation anteriorly. HEART: S1, S2. Regular rate and rhythm. ABDOMEN: Soft. No tenderness. LABS: Hemoglobin is 10.8, white count 8.0. BUN of 32, creatinine 0.61. Electrolytes have been normal. DIAGNOSTIC IMPRESSION AND PLAN: 1. Patient with acute respiratory failure which is likely multifactorial in this patient who did have a component of acute COVID-19 pneumonia. Patient to complete her 5-day course of Plaquenil therapy today. Continue with low-dose steroids and monitor clinical course closely. 2. Patient with Klebsiella urinary tract infection, covered with Rocephin; to continue and monitor clinical course closely. MMODL / IJN: [id number] /
[2019-12-06 00:06] LABS: Glucose,Whole Blood 114 mg/dL (75-99)
[2019-12-06] MEDS: INSULIN ASPART (NovoLOG) 100 UNIT/ML VIAL SQ SCH ×4 (00:21→18:22)
[2019-12-06] MEDS: PROPOFOL 1,000 MG in EMPTY BAG 1 BAG IV SCH ×3 (00:56→10:09)
[2019-12-06 05:11] LABS: Basophils % (A) 0 %; Eosinophils % (A) 0 %; HCT 32.9 % (34.0-46.0); HGB 10.1 gm/dL (11.4-16.0); Hypochromasia Slight; Lymphocytes # (A) 0.6 k/uL (1.0-4.8); Lymphocytes % (A) 8 %; MCH 28.5 pg (25.0-35.0); MCHC 30.8 g/dL (31.0-37.0); MCV 92.4 fL (80.0-100.0); Monocytes # (A) 0.6 k/uL (0-1.0); Monocytes % (A) 7 %; Neutrophils # (A) 6.5 k/uL (1.3-7.7); Neutrophils % (A) 83 %; Platelet Count 305 k/uL (150-450); RBC 3.56 m/uL (3.80-5.40); RDW 13.9 % (11.5-15.5); WBC 7.9 k/uL (3.8-10.6)
[2019-12-06 05:18] LABS: Glucose,Whole Blood 107 mg/dL (75-99)
[2019-12-06 05:30] LABS: ALT 14 U/L (4-34); AST 24 U/L (14-36); African American GFR (CKD) >90 (>60 ml/min/1.73 sqM); Albumin 2.6 g/dL (3.5-5.0); Alkaline Phosphatase 73 U/L (38-126); Anion Gap 3 mmol/L; Blood Urea Nitrogen 31 mg/dL (7-17); C Reactive Protein 73.3 mg/L (<10.0); Calcium 8.2 mg/dL (8.4-10.2); Carbon Dioxide 30 mmol/L (22-30); Chloride 108 mmol/L (98-107); Creatine Kinase 77 U/L (30-135); Glucose 110 mg/dL (74-99); LDH 821 U/L (313-618); Non-African American GFR(CKD) 90 (>60 ml/min/1.73 sqM); Potassium 4.2 mmol/L (3.5-5.1); Sodium 141 mmol/L (137-145); Total Bilirubin 0.3 mg/dL (0.2-1.3); Total Protein 5.5 g/dL (6.3-8.2)
[2019-12-06] MEDS: LEVOTHYROXINE 100 MCG TAB PO SCH (05:36)
[2019-12-06 06:42] LABS: ABG Base Excess 4.9 mmol/L; ABG HCO3 28 mmol/L (21-25); ABG Oxygen Saturation 97.1 % (94-97); ABG PCO2 38 mmHg (35-45); ABG PH 7.49 (7.35-7.45); ABG PO2 86 mmHg (83-108); ABG TCO2 30 mmol/L (19-24)
[2019-12-06 06:44] LABS: Allen Test Performed? no
--- NOTE | 2019-12-06 07:07 | XR ---
EXAMINATION TYPE: XR chest 1V portable DATE OF EXAM: 12/06/2019 Comparison: 12/05/2019 Clinical History: 74-year-old female Tube placement Findings: ET and NG tubes are satisfactory. Left subclavian CVC tip at the cavoatrial junction. Heart upper torres its of normal in size. Patchy bibasilar opacities persist. Visualized upper lungs are clear. Impression: Continued patchy bibasilar infiltrates.
[2019-12-06] MEDS: ALBUTEROL HFA INHALER INHALATION PRN (07:27)
[2019-12-06] MEDS: PANTOPRAZOLE 40 MG/10 ML VIAL IVP SCH (08:17)
[2019-12-06] MEDS: ZINC SULFATE 220 MG CAP PO SCH (08:17)
[2019-12-06] MEDS: methylPREDNISolone SOD SUCCI 40 MG/ML 1 ML VIAL IV SCH ×2 (08:18→19:43)
[2019-12-06] MEDS: CHLORHEXIDINE GLUCONATE 15 ML CUP MUCOUS MEM SCH ×2 (08:18→19:43)
[2019-12-06] MEDS: ASPIRIN 81 MG PO SCH (08:18)
[2019-12-06] MEDS: RIVAROXABAN 20 MG TAB PO SCH (08:18)
[2019-12-06] MEDS: HYDROXYCHLOROQUINE ORAL SUSP 200 MG/8 ML ORAL.SYRG PO SCH ×2 (09:09→21:51)
[2019-12-06] MEDS: NOREPINEPHRINE 4 MG in SODIUM CHLORIDE 0.9% 250 ML IV SCH (10:20)
[2019-12-06 11:34] LABS: Ferritin 415.3 ng/mL (10.0-291.0)
[2019-12-06] MEDS: CLEVIDIPINE BUTYRATE 25 MG in EMPTY BAG 1 BAG IV SCH ×3 (11:54→21:52)
[2019-12-06 11:57] LABS: Glucose,Whole Blood 104 mg/dL (75-99)
--- NOTE | 2019-12-06 12:52 | P.PN ---
Subjective Progress Note Date: 12/06/19 Principal diagnosis: Acute covid 19 pneumonia and acute hypoxic respiratory failure, secondary to pneumonia and ARDS This is a 74-year-old -[place] female patient who lives in [place]. The patient has history of atrial fibrillation and she has been maintained on Xarelto on long-term basis. The patient felt febrile and had increased cough approximately a week ago. She end up going to [facility] where she was tested and she was confirmed to have positive: 19 infection. The patient was discharged home. However, as the patient became more short of b reath and her cough that is worse, the patient presented to ED department at [facility] where she was evaluated and she was placed on high flow oxygen because of her ongoing hypoxemia. The patient's pulse ox apparently was in the low 80s and she was given supplemental oxygen including 100% nonrebreather facemask. The patient got transferred to us for further monitoring and treatment. The patient's white cell count was at 4.4 at time of admission and the patient had a lymphopenia with a lymphocyte level of 0.7. Hemoglobin was at 13.3. Platelet count was 222, LFTs are unremarkable, the troponin was negative, CRP was 122, LDH was 548, ferritin level was 723, CPK was 156 and the lactic acid level was 1.6. Chest x-ray showed bilateral pulmonary infiltrates interstitial changes bilaterally right more than left more so in the lung bases bilaterally. Clinically, despite hypoxemia, the patient seems to be quite stable and she is struggling with her breathing. She is not using some ecchymosis of breathing. She is currently on high flow oxygen at 10 L in addition to 100% on a beta facemasks and pulse ox is around 87-90%. No nausea. No vomiting. No altered mentation. No chest pain. Her cardiac rhythm is still in atrial fibrillation. The patient was started on Plaquenil. She is an ex- smoker. She has history of COPD and she has been maintained on Stiolto on outpatient basis. On 12/01/2019 and seeing this patient for a follow-up. As mentioned earlier the patient was Hospital as for an acute Covid 19 pneumonia. The patient was on 100% nonrebreather facemask. Yesterday evening, the patient's condition decompensated. As such, the patient had to be intubated and placed on a mechanical ventilator. This was done by [employer] and intubation process was successful. This morning the patient is being seen for a follow-up. The patient currently is on assist-control mode rate of 20 with tidal volume of 350 and FiO2 of 40% with a PEEP of 15. The patient is on propofol which is running at 75 g per KG pigmented and fentanyl drip is running in 1 g per KG per hour. Levothroid has also be used at a dose of 0.04 g per KG pigmented for hemodynamic support. The patient will be started on enteral feeding for nutrition support. Do not lung cancer and a triple-lumen cath was also inserted. Note that the patient is afebrile today. The patient had a T-max of 99.9. The LDH still elevated at 1140. The d-dimer is at 1.19. Blood gases from today shows a pH of 7.36 with a pCO2 of 42 and pO2 of 82. Chest x-ray shows interval insertion of the ET tube and there is bilateral basilar reticular nodular infiltrates and some increased infiltration of the upper lobes bilaterally. The patient's net fluid balance is +1.8 L over the past 24 hours. She'll be started on enteral feeding for nutritional support. She is already on a combination of zinc sulfate and Plaquenil. She was also maintained on anticoagulation with Xarelto regarding her chronic atrial fibrillation. On 12/02/2019, the patient remains intubated on a mechanical ventilator. This morning, the patient is sedated with propofol of 75 mcg/kg per minute and fentanyl at all micrograms per kilogram per hour. The patient remains intubated on mechanical ventilator. The patient is an assist-control mode rate of 20 with tidal volume of 350 and FiO2 of 50% with a PEEP of 15. The patient's chest x- ray shows some limited infiltration of the lung bases along with some scattered bibasilar groundglass and reticulocyte another pulmonary infiltrates. The patient is producing adequate amount of urine output. Norepinephrine infusion is running at a low dose of 0.02 g per KG per minute. The patient developed a lower blood pressure of this pressors and the urine output are also drop. The neck fluid balance is positive troponin 9 L over the past 24 hours. No documented fever. The blood gases from today showed a pH of 7.38 with a pCO2 of 41 and pO2 of 132. The patient's LDH today's 1087 and the 50s up to 578 and the CRP level is at 300. LFTs remain nonelevated with an AST of 51 ALT of 17. Renal function is stable with a creatinine of 0.7. No significant leukocytosis. The patient has underlying lymphopenia. Enteral feeding will be started on her for nutritional support. Echocardiogram is to follow. On 12/03/2019, I'm seeing this patient for a follow-up. Clinically signific antly since her the same compared to yesterday. She is sedated on propofol at the rate of 75 mcg/kg per minute and the patient is also on fentanyl at 1 mcg/kg/h. She is requiring a lot of stresses in her urine output is very much dependent that pressor. She is on norepinephrine infusion at the rate of 0.03 units per kilogram per minute. And the patient's is on a normal saline infusion at the rate of 10 mL an hour. Her net fluid balance is +0.9 L over the past 24 hours. The patient's is an assist-control mode at the rate of 20 with tidal volume of 350 and FiO2 of 40% with a PEEP of 12. Chest x-ray findings are essentially the same and unchanged compared to yesterday. The blood gases from today showed a pH of 7.44 with a pCO2 of 40 and pO2 of 67 and this was done and FiO2 of 40%. Peak airway pressure is 31. Plateau airway pressure is 27. The CRP level is at 387 which is higher compared to yesterday. The LDH level is 925 which is lower compared to yesterday. Creatinine is at 0.5. TPN is at 16. The patient is afebrile for now. The patient remains on a combination of Plaquenil and zinc sulfate. The patient is also on IV Rocephin as an empiric antibiotic coverage. No other significant events otherwise for now. She is tolerating her tube feeds which is running at the rate of 27 mL an hour. On 12/04/2019 the patient is being seen for a follow-up. She is a case of Covid 19 pneumonia/respiratory failure requiring intubation mechanical ventilation. This morning, the patient remains sedated with propofol running at 50 g and fentanyl running at 1 mcg/kg/h. Chest x-ray findings show some improved aeration of the left lung base. ET tube is in a good location. The patient has a left subclavian triple-lumen catheter in place. The patient is an assist- control mode at the rate of 20 with a tidal volume of 350 and FiO2 of 40% with a PEEP of 12. The PF ratio is 154. The peak airway pressure is 29. Static pressure is 26. The LDH level is at 880, CPK is 251, CRP is a 61, and the patient has elevated d-dimer of 4.97. Noted the patient is or the on anticoag ulation with Xarelto which was given to her for her chronic atrial fibrillation and this was continued. She is tolerating her enteral feeding for support. She is in a positive fluid balance of 1 L. She is afebrile. The patient has no leukocytosis. Function is stable with a creatinine of 0.5 with a BUN of 21. Electrodes are all within normal limits. Enterofeeding is being provided at the rate of 27 mL an hour. She remains on Plaquenil. IV Solu-Medrol was added. She is receiving IV Solu Medrol 4 mg every 12 hours. She is on empiric antibiotic coverage with Rocephin. Pressor medications are unchanged. She is on normal saline at the rate of 20 mL an hour. Reevaluated today on 12/05/19, patient remains intubated and mechanically ventilated, her ventilator settings are assist control rate of 20 tidal volume of 350 FiO2 40%, and the PEEP was brought to 8 from 11. ABG showed a pO2 of 79 pCO2 of 42 pH of 7.45. Her peak airway pressure is 30 left toe pressure is 25. Chest x-ray continues to show by basilar infiltrates. Patient remains on fentanyl at 1 mcg/kg/h, propofol at 50 mcg/kg/m, norepinephrine at 0.005 mcg/kg/m. Receiving Plaquenil, zinc, Solu-Medrol, and ceftriaxone. Markers including ferritin is 460, LDH is a 22, C-reactive protein is 170 liver enzymes are normal. Patient remains on enteral feeding. Remains on Xarelto 4 history of chronic atrial fibrillation. Renal functioning is normal. Electrodes lites are normal. IV fluid rate remained the same. Reevaluated today on 12/04 Reevaluated today on 12/06/19, remains intubated, mechanically ventilated. Her v entilator settings are assist control rate of 20 tidal volume of 350 FiO2 is 40%, PEEP is 8. Patient is on propofol at 20 mcg/kg/m, she is also on fentanyl at a very low dose, based on the ABG, no vent changes were made. Chest x-ray continues to show basilar infiltrates. Not much of a change in her overall chest x-ray appearance. ABG today showed a pO2 of 86 pCO2 of 38 pH of 7.49. CBC is relatively normal. Basic metabolic profile is normal. Inflammatory markers are improved ferritin is 4:15, C-reactive protein is 73 LDH is 821. Patient remains on enteral feeding. And tolerating that quite well. Objective - Vital Signs Vital signs: Vital Signs Temp 97.0 F L 12/06/19 08:00 Pulse 96 12/06/19 12:00 Resp 25 H 12/06/19 12:00 BP 133/69 12/06/19 12:00 Pulse Ox 99 12/06/19 12:00 Intake & Output 12/05/19 12/06/19 12/06/19 18:59 06:59 18:59 Intake Total 547.620 5637.255 532.160 Output Total 520 630 277 Balance 296.190 487.255 255.160 Weight 78.5 kg 81.3 kg 81.3 kg Intake: IV 452 552 306 Normal Saline Pressure 72 72 36 Bag Sodium Chloride 0.9% 1, 380 480 220 000 ml @ 20 mls/hr IV . Q24H NGUYEN Rx#:[id number] cefTRIAXone 1 gm In 50 Sodium Chloride 0.9% 50 ml @ 100 mls/hr IVPB Q24HR NGUYEN Rx#:[id number] Intake, IV Titration 88.190 151.255 145.160 Amount Clevidipine Butyrate 25 0.2 mg In Empty Bag 1 bag @ 1 MG/HR 2 mls/hr IV .Q24H NGUYEN Rx#:[id number] Propofol 1,000 mg In 37.601 138.897 134.854 Empty Bag 1 bag @ Titrate IV .Q0M NGUYEN Rx#: [id number] fentaNYL (PF) 1,000 mcg 50.589 12.358 10.106 In Sodium Chloride 0.9% 80 ml @ 1 MCG/KG/HR 6.93 mls/hr IV .[id number] NGUYEN Rx #:[id number] Tube Feeding 216 324 81 Other 60 90 Output: Urine 520 630 277 Other: Voiding Method Indwelling Catheter Indwelling Catheter Indwelling Catheter ABP, PAP, CO, CI - Last Documented Arterial Blood Pressure 175/66 - Exam Physical Exam revealed 74-year-old female in no distress. Intubated and mechanically ventilated and sedated. HEENT:: PERRLA, EOMI, no icterus, left subclavian triple-lumen catheter is noted in place. Head: Atraumatic normocephalic endotracheal tube and orogastric tubes are intact. Patient seems to have loose frontal bottom teeth, apparently been biting on the endotracheal tube or probably related to intubation when the patient was intubated. [No neck masses.] [No thyromegaly.] [No JVD.] Chest: [Crackles at the bases, no rhonchi and no wheezes. Cardiac Exam: Irregular irregular rhythm. [Normal S1 and S2, no S3 gallop, no murmur.] Abdomen: [Soft, nontender, no megaly, no rebound, no guarding, normal bowel sounds.] Extremities: [No clubbing, no edema, no cyanosis.] Neurological Exam: [Cannot be assessed. Remains on sedation, I have recommended stopping propofol and fentanyl today for mental status assessment. Psychiatric: Cannot be assessed, intubated and mechanically ventilated. Sedated on propofol and fentanyl. Skin: No rashes. - Labs CBC & Chem 7: 12/06/19 04:35 12/06/19 04:35 Labs: Abnormal Lab Results - Last 24 Hours (Table) 12/05/19 12/05/19 12/06/19 Range/Units 04:15 17:30 00:04 RBC (3.80-5.40) m/uL Hgb (11.4-16.0) gm/dL Hct (34.0-46.0) % MCHC (31.0-37.0) g/dL Lymphocytes # (1.0-4.8) k/uL ABG pH (7.35-7.45) ABG HCO3 (21-25) mmol/L ABG Total CO2 (19-24) mmol/L ABG O2 Saturation (94-97) % Chloride (98-107) mmol/L BUN (7-17) mg/dL Glucose (74-99) mg/dL POC Glucose (mg/dL) 107 H 114 H (75-99) mg/dL Calcium (8.4-10.2) mg/dL Ferritin 460.1 H (10.0-291.0) ng/mL Lactate Dehydrogenase (313-618) U/L C-Reactive Protein (<10.0) mg/L Total Protein (6.3-8.2) g/dL Albumin (3.5-5.0) g/dL 12/06/19 12/06/19 12/06/19 Range/Units 04:35 04:35 05:17 RBC 3.56 L (3.80-5.40) m/uL Hgb 10.1 L (11.4-16.0) gm/dL Hct 32.9 L (34.0-46.0) % MCHC 30.8 L (31.0-37.0) g/dL Lymphocytes # 0.6 L (1.0-4.8) k/uL ABG pH (7.35-7.45) ABG HCO3 (21-25) mmol/L ABG Total CO2 (19-24) mmol/L ABG O2 Saturation (94-97) % Chloride 108 H (98-107) mmol/L BUN 31 H (7-17) mg/dL Glucose 110 H (74-99) mg/dL POC Glucose (mg/dL) 107 H (75-99) mg/dL Calcium 8.2 L (8.4-10.2) mg/dL Ferritin 415.3 H (10.0-291.0) ng/mL Lactate Dehydrogenase 821 H (313-618) U/L C-Reactive Protein 73.3 H (<10.0) mg/L Total Protein 5.5 L (6.3-8.2) g/dL Albumin 2.6 L (3.5-5.0) g/dL 12/06/19 12/06/19 Range/Units 06:36 11:54 RBC (3.80-5.40) m/uL Hgb (11.4-16.0) gm/dL Hct (34.0-46.0) % MCHC (31.0-37.0) g/dL Lymphocytes # (1.0-4.8) k/uL ABG pH 7.49 H (7.35-7.45) ABG HCO3 28 H (21-25) mmol/L ABG Total CO2 30 H (19-24) mmol/L ABG O2 Saturation 97.1 H (94-97) % Chloride (98-107) mmol/L BUN (7-17) mg/dL Glucose (74-99) mg/dL POC Glucose (mg/dL) 104 H (75-99) mg/dL Calcium (8.4-10.2) mg/dL Ferritin (10.0-291.0) ng/mL Lactate Dehydrogenase (313-618) U/L C-Reactive Protein (<10.0) mg/L Total Protein (6.3-8.2) g/dL Albumin (3.5-5.0) g/dL Assessment and Plan Assessment: Impression: Acute hypoxic respiratory failure secondary to pneumonia Acute covid 19 pneumonitis., Improving, but her mental status remains an issue. And I have recommended stopping propofol and fentanyl today. ARDS secondary to pneumonitis as above. History of COPD History of hypertension Chronic atrial fibrillation, on Xarelto Septic shock requiring norepinephrine and the dose is being titrated down. Acute gram-negative urinary tract infection with Klebsiella pneumoniae Loose bottom front teeth, could be related to intubation or patient has been biting hard on the endotracheal tube when she was intubated. May consider dental evaluation down the line. Recommendation: Continue ventilatory support. Continue same ventilatory settings today. Continue Plaquenil zinc and awaiting interleukin-6 levels Continue enteral feeding. Continue to monitor inflammatory markers for pneumonitis. Continue Rocephin for UTI. Continue nutritional support. Continue GI and DVT prophylaxis. Continue hemodynamic support. Consider dental consultation regarding her loose teeth. Patient remains critically ill, I have instructed that we hold narcotics and sedatives today, until mental status is fully assessed, otherwise no reason to pursue any weaning trials at this point. We'll continue to follow. Critical care time is 33 minutes Time with Patient: Greater than 30
--- NOTE | 2019-12-06 14:10 | P.PN ---
Subjective Progress Note Date: 12/06/19 Principal diagnosis: COVID pneumonia Patient is a 74-year-old -[place]os[place] female with a past medical history of hypertension, mild COPD, and paroxysmal atrial fibrillation on Xarelto who presented to [place] emergency department with complaints of coughing, headache, and shortness of breath. She was transferred here due to the covert relief effort. Initial evaluation consistent with atypical or viral pneumonia with probable covert 19. She had testing done at [place] which was positive for COVID-19. She was started on hydroxychloroquine, zinc, and as needed Tylen ol. Pulmonary was consulted. Her O2 requirement continued to increase. Chest x-ray consistent with pneumonia/ARDS picture. We had a long discussion she was okay with elective intubation. She was intubated on the afternoon of 11/30/2019. She did require propofol, fentanyl, norepinephrine, and antibiotics. She had not made significant progress by 12/03/2019 and continued to spike fevers. She was s tarted on Solumedrol on 12/04/2019. Patient was seen and examined. Sedated on vent. Chest Xray virtually unchanged. Tidal volume 350. Rate 20. FiO2 40%. PEEP of 8. She was started on clevidipine IV for management of elevated blood pressure. Otherwise, no changes as per nursing. Objective - Vital Signs Vital signs: Vital Signs Temp 98.1 F 12/06/19 12:00 Pulse 96 12/06/19 12:00 Resp 25 H 12/06/19 12:00 BP 133/69 12/06/19 12:00 Pulse Ox 99 12/06/19 12:00 Intake & Output 12/05/19 12/06/19 12/06/19 18:59 06:59 18:59 Intake Total 267.229 2067.255 532.160 Output Total 520 630 277 Balance 296.190 487.255 255.160 Weight 78.5 kg 81.3 kg 81.3 kg Intake: IV 452 552 306 Normal Saline Pressure 72 72 36 Bag Sodium Chloride 0.9% 1, 380 480 220 000 ml @ 20 mls/hr IV . Q24H [facility] Rx#:[id number] cefTRIAXone 1 gm In 50 Sodium Chloride 0.9% 50 ml @ 100 mls/hr IVPB Q24HR [facility] Rx#:[id number] Intake, IV Titration 88.190 151.255 145.160 Amount Clevidipine Butyrate 25 0.2 mg In Empty Bag 1 bag @ 1 MG/HR 2 mls/hr IV .Q24H COUNT INCLUDES THE [facility] Rx#:[id number] Propofol 1,000 mg In 37.601 138.897 134.854 Empty Bag 1 bag @ Titrate IV .Q0M [facility] Rx#: [id number] fentaNYL (PF) 1,000 mcg 50.589 12.358 10.106 In Sodium Chloride 0.9% 80 ml @ 1 MCG/KG/HR 6.93 mls/hr IV .[id number] COUNT INCLUDES THE [facility] Rx #:[id number] Tube Feeding 216 324 81 Other 60 90 Output: Urine 520 630 277 Other: Voiding Method Indwelling Catheter Indwelling Catheter Indwelling Catheter ABP, PAP, CO, CI - Last Documented Arterial Blood Pressure 175/66 - Exam General: [non toxic], [no distress], [appears at stated age] Derm: [warm], [dry] Head: [atraumatic], [normocephalic], [symmetric] Eyes: [EOMI], [no lid lag], [anicteric sclera] Mouth: [no lip lesion], [mucus membranes moist] Cardiovascular: [S1S2 reg], [tachycardic], [positive DP pulse bilateral], Lungs: [Coarse breath sounds bilateral], [no rhonchi, no rales] , [no accessory muscle use] Abdominal: [soft], [ nontender to palpation], [no guarding], [no appreciable organomegaly] Ext: [no gross muscle atrophy], [no edema], [no contractures] Neuro: [Unable to determine] Psych: [Sedated] - Labs CBC & Chem 7: 12/06/19 04:35 12/06/19 04:35 Labs: Abnormal Lab Results - Last 24 Hours (Table) 12/05/19 12/06/19 12/06/19 Range/Units 17:30 00:04 04:35 RBC 3.56 L (3.80-5.40) m/uL Hgb 10.1 L (11.4-16.0) gm/dL Hct 32.9 L (34.0-46.0) % MCHC 30.8 L (31.0-37.0) g/dL Lymphocytes # 0.6 L (1.0-4.8) k/uL ABG pH (7.35-7.45) ABG HCO3 (21-25) mmol/L ABG Total CO2 (19-24) mmol/L ABG O2 Saturation (94-97) % Chloride (98-107) mmol/L BUN (7-17) mg/dL Glucose (74-99) mg/dL POC Glucose (mg/dL) 107 H 114 H (75-99) mg/dL Calcium (8.4-10.2) mg/dL Ferritin (10.0-291.0) ng/mL Lactate Dehydrogenase (313-618) U/L C-Reactive Protein (<10.0) mg/L Total Protein (6.3-8.2) g/dL Albumin (3.5-5.0) g/dL 12/06/19 12/06/19 12/06/19 Range/Units 04:35 05:17 06:36 RBC (3.80-5.40) m/uL Hgb (11.4-16.0) gm/dL Hct (34.0-46.0) % MCHC (31.0-37.0) g/dL Lymphocytes # (1.0-4.8) k/uL ABG pH 7.49 H (7.35-7.45) ABG HCO3 28 H (21-25) mmol/L ABG Total CO2 30 H (19-24) mmol/L ABG O2 Saturation 97.1 H (94-97) % Chloride 108 H (98-107) mmol/L BUN 31 H (7-17) mg/dL Glucose 110 H (74-99) mg/dL POC Glucose (mg/dL) 107 H (75-99) mg/dL Calcium 8.2 L (8.4-10.2) mg/dL Ferritin 415.3 H (10.0-291.0) ng/mL Lactate Dehydrogenase 821 H (313-618) U/L C-Reactive Protein 73.3 H (<10.0) mg/L Total Protein 5.5 L (6.3-8.2) g/dL Albumin 2.6 L (3.5-5.0) g/dL 12/06/19 Range/Units 11:54 RBC (3.80-5.40) m/uL Hgb (11.4-16.0) gm/dL Hct (34.0-46.0) % MCHC (31.0-37.0) g/dL Lymphocytes # (1.0-4.8) k/uL ABG pH (7.35-7.45) ABG HCO3 (21-25) mmol/L ABG Total CO2 (19-24) mmol/L ABG O2 Saturation (94-97) % Chloride (98-107) mmol/L BUN (7-17) mg/dL Glucose (74-99) mg/dL POC Glucose (mg/dL) 104 H (75-99) mg/dL Calcium (8.4-10.2) mg/dL Ferritin (10.0-291.0) ng/mL Lactate Dehydrogenase (313-618) U/L C-Reactive Protein (<10.0) mg/L Total Protein (6.3-8.2) g/dL Albumin (3.5-5.0) g/dL Assessment and Plan Assessment: Bilateral pneumonia secondary to COVID 19 with ARDS and acute hypoxic respiratory failure requiring intubation -Continue with Plaquenil, steroids initiated by pulmonary -Symbicort, albuterol inhaler -Vent management per critical care -Trend d-dimer, LDH, CRP, CPK -Follow chest x-ray until clear -Pulmonary critical care recommendations appreciated -Follow QT interval -Gentle IV fluids Klebsiella UTI - Rocephin D # 5, continue for 2 more days Elevated d-dimer - Possible microthrombi due to above infection. Patient is on Xarelto which will be continued due to history of chronic A. fib. Hypothyroidism -Synthroid Hypertension -Patient started on clevidipine drip Paroxysmal atrial fibrillation -Metoprolol IV as needed with parameters -Continue with Xarelto COPD without acute exacerbation -Bronchodilators Dyslipidemia -Statin therapy DVT prophylaxis: Xarelto Discussed with: Patient Anticipated discharge: undetermined Anticipated discharge place: undetermined A total of 35 minutes was spent on the care of this complex patient more than 50% of the time was spent in counseling and care coordination.
[2019-12-06] MEDS: SODIUM CHLORIDE 0.9% 1,000 ML IV SCH (15:03)
[2019-12-06 18:07] LABS: Glucose,Whole Blood 126 mg/dL (75-99)
--- NOTE | 2019-12-06 21:42 | PN ---
PROGRESS NOTE DATE OF SERVICE: 12/06/2019 REASON FOR FOLLOWUP: Acute COVID-19 pneumonia. INTERVAL HISTORY: The patient is currently afebrile. The patient is hemodynamically stable. The patient's FiO2 is currently stable. Tolerating her tube feeds. No diarrhea has been reported. PHYSICAL EXAMINATION: Blood pressure is 130/52 with a pulse of 100, temperature 99.5. She is 99% on 40% FiO2. General description is an elderly female lying in bed in no distress. RESPIRATORY SYSTEM: Unlabored breathing. No significant wheeze or crackles reported by the nursing staff. EXTREMITIES: No edema of the feet. LABS: Hemoglobin is 10.8, white count of 7.9, BUN of 31, creatinine 0.61. DIAGNOSTIC IMPRESSION AND PLAN: 1. Patient with acute COVID-19 pneumonia with acute respiratory failure. Patient currently on Plaquenil, Solu-Medrol, zinc; to continue along with respiratory support. 2. Klebsiella urinary tract infection, currently covered with Rocephin. Monitor clinical course closely. MMODL / IJN: [id number] /
[2019-12-06 23:10] LABS: Glucose,Whole Blood 123 mg/dL (75-99)
[2019-12-06] MEDS ORDERED: LORazepam 2 MG/ML INJ IV PRN (23:34)
[2019-12-06] MEDS: HYDROmorphone 1 MG/ML 1 ML SYRINGE IVP PRN (23:42)
[2019-12-07] MEDS: INSULIN ASPART (NovoLOG) 100 UNIT/ML VIAL SQ SCH ×4 (00:05→18:21)
[2019-12-07] MEDS: HYDROmorphone 1 MG/ML 1 ML SYRINGE IVP PRN (03:51)
[2019-12-07] MEDS: CLEVIDIPINE BUTYRATE 25 MG in EMPTY BAG 1 BAG IV SCH ×3 (05:45→18:22)
[2019-12-07] MEDS: LEVOTHYROXINE 100 MCG TAB PO SCH (05:47)
[2019-12-07 05:54] LABS: Glucose,Whole Blood 109 mg/dL (75-99)
[2019-12-07 06:11] LABS: Basophils % (A) 0 %; Eosinophils # (A) 0.1 k/uL (0-0.7); Eosinophils % (A) 1 %; HCT 32.1 % (34.0-46.0); Hypochromasia Slight; Lymphocytes # (A) 0.6 k/uL (1.0-4.8); Lymphocytes % (A) 7 %; MCH 28.8 pg (25.0-35.0); Mean Platelet Volume 7.9; Monocytes # (A) 0.6 k/uL (0-1.0); Monocytes % (A) 8 %; Neutrophils # (A) 6.5 k/uL (1.3-7.7); Neutrophils % (A) 81 %; Platelet Count 297 k/uL (150-450); RBC 3.45 m/uL (3.80-5.40); RDW 13.9 % (11.5-15.5)
[2019-12-07 06:25] LABS: ALT 40 U/L (4-34); AST 56 U/L (14-36); African American GFR (CKD) >90 (>60 ml/min/1.73 sqM); Albumin 2.6 g/dL (3.5-5.0); Alkaline Phosphatase 81 U/L (38-126); Anion Gap 7 mmol/L; Blood Urea Nitrogen 31 mg/dL (7-17); Calcium 8.6 mg/dL (8.4-10.2); Carbon Dioxide 29 mmol/L (22-30); Chloride 110 mmol/L (98-107); Glucose 112 mg/dL (74-99); Non-African American GFR(CKD) 90 (>60 ml/min/1.73 sqM); Sodium 146 mmol/L (137-145); Total Bilirubin 0.5 mg/dL (0.2-1.3); Total Protein 5.7 g/dL (6.3-8.2)
--- NOTE | 2019-12-07 07:25 | XR ---
EXAMINATION TYPE: XR chest 1V DATE OF EXAM: 12/07/2019 COMPARISON: 12/06/2019 HISTORY: SOB, Follow Up FINDINGS: Indwelling tubes and catheters are unchanged. Perihilar and basilar infiltrates noted. Narrowing change appreciated. Stable appearance of the cardio-mediastinal structures at this time. Pleural effusion unchanged. IMPRESSION: 1. Stable portable chest. Clinical correlation and follow up until resolution is recommended.
[2019-12-07 07:43] LABS: ABG Base Excess 3.5 mmol/L; ABG HCO3 27 mmol/L (21-25); ABG Oxygen Saturation 98.7 % (94-97); ABG PCO2 38 mmHg (35-45); ABG PH 7.46 (7.35-7.45); ABG PO2 111 mmHg (83-108); ABG TCO2 29 mmol/L (19-24)
[2019-12-07 07:45] LABS: Allen Test Performed? no
[2019-12-07] MEDS: ZINC SULFATE 220 MG CAP PO SCH (08:32)
[2019-12-07] MEDS: methylPREDNISolone SOD SUCCI 40 MG/ML 1 ML VIAL IV SCH ×2 (08:32→20:27)
[2019-12-07] MEDS: ASPIRIN 81 MG PO SCH (08:32)
[2019-12-07] MEDS: PANTOPRAZOLE 40 MG/10 ML VIAL IVP SCH (08:32)
[2019-12-07] MEDS: CHLORHEXIDINE GLUCONATE 15 ML CUP MUCOUS MEM SCH ×2 (08:32→19:36)
[2019-12-07] MEDS: HYDROXYCHLOROQUINE ORAL SUSP 200 MG/8 ML ORAL.SYRG PO SCH ×2 (08:34→20:27)
[2019-12-07 10:20] LABS: ABG Base Excess 3.2 mmol/L; ABG HCO3 26 mmol/L (21-25); ABG Oxygen Saturation 98.3 % (94-97); ABG PCO2 33 mmHg (35-45); ABG PH 7.51 (7.35-7.45); ABG PO2 98 mmHg (83-108); ABG TCO2 27 mmol/L (19-24)
[2019-12-07 10:22] LABS: Allen Test Performed? no
[2019-12-07] MEDS: RIVAROXABAN 20 MG TAB PO SCH (11:36)
[2019-12-07 12:38] LABS: Glucose,Whole Blood 123 mg/dL (75-99)
--- NOTE | 2019-12-07 12:50 | P.PN ---
Subjective Progress Note Date: 12/07/19 Principal diagnosis: Acute covid 19 pneumonia and acute hypoxic respiratory failure, secondary to pneumonia and ARDS This is a 74-year-old -[place] female patient who lives in [place]. The patient has history of atrial fibrillation and she has been maintained on Xarelto on long-term basis. The patient felt febrile and had increased cough approximately a week ago. She end up going to [facility] where she was tested and she was confirmed to have positive: 19 infection. The patient was discharged home. However, as the patient became more short of b reath and her cough that is worse, the patient presented to ED department at [facility] where she was evaluated and she was placed on high flow oxygen because of her ongoing hypoxemia. The patient's pulse ox apparently was in the low 80s and she was given supplemental oxygen including 100% nonrebreather facemask. The patient got transferred to us for further monitoring and treatment. The patient's white cell count was at 4.4 at time of admission and the patient had a lymphopenia with a lymphocyte level of 0.7. Hemoglobin was at 13.3. Platelet count was 222, LFTs are unremarkable, the troponin was negative, CRP was 122, LDH was 548, ferritin level was 723, CPK was 156 and the lactic acid level was 1.6. Chest x-ray showed bilateral pulmonary infiltrates interstitial changes bilaterally right more than left more so in the lung bases bilaterally. Clinically, despite hypoxemia, the patient seems to be quite stable and she is struggling with her breathing. She is not using some ecchymosis of breathing. She is currently on high flow oxygen at 10 L in addition to 100% on a beta facemasks and pulse ox is around 87-90%. No nausea. No vomiting. No altered mentation. No chest pain. Her cardiac rhythm is still in atrial fibrillation. The patient was started on Plaquenil. She is an ex- smoker. She has history of COPD and she has been maintained on Stiolto on outpatient basis. On 12/01/2019 and seeing this patient for a follow-up. As mentioned earlier the patient was Hospital as for an acute Covid 19 pneumonia. The patient was on 100% nonrebreather facemask. Yesterday evening, the patient's condition decompensated. As such, the patient had to be intubated and placed on a mechanical ventilator. This was done by [employer] and intubation process was successful. This morning the patient is being seen for a follow-up. The patient currently is on assist-control mode rate of 20 with tidal volume of 350 and FiO2 of 40% with a PEEP of 15. The patient is on propofol which is running at 75 g per KG pigmented and fentanyl drip is running in 1 g per KG per hour. Levothroid has also be used at a dose of 0.04 g per KG pigmented for hemodynamic support. The patient will be started on enteral feeding for nutrition support. Do not lung cancer and a triple-lumen cath was also inserted. Note that the patient is afebrile today. The patient had a T-max of 99.9. The LDH still elevated at 1140. The d-dimer is at 1.19. Blood gases from today shows a pH of 7.36 with a pCO2 of 42 and pO2 of 82. Chest x-ray shows interval insertion of the ET tube and there is bilateral basilar reticular nodular infiltrates and some increased infiltration of the upper lobes bilaterally. The patient's net fluid balance is +1.8 L over the past 24 hours. She'll be started on enteral feeding for nutritional support. She is already on a combination of zinc sulfate and Plaquenil. She was also maintained on anticoagulation with Xarelto regarding her chronic atrial fibrillation. On 12/02/2019, the patient remains intubated on a mechanical ventilator. This morning, the patient is sedated with propofol of 75 mcg/kg per minute and fentanyl at all micrograms per kilogram per hour. The patient remains intubated on mechanical ventilator. The patient is an assist-control mode rate of 20 with tidal volume of 350 and FiO2 of 50% with a PEEP of 15. The patient's chest x- ray shows some limited infiltration of the lung bases along with some scattered bibasilar groundglass and reticulocyte another pulmonary infiltrates. The patient is producing adequate amount of urine output. Norepinephrine infusion is running at a low dose of 0.02 g per KG per minute. The patient developed a lower blood pressure of this pressors and the urine output are also drop. The neck fluid balance is positive troponin 9 L over the past 24 hours. No documented fever. The blood gases from today showed a pH of 7.38 with a pCO2 of 41 and pO2 of 132. The patient's LDH today's 1087 and the 50s up to 578 and the CRP level is at 300. LFTs remain nonelevated with an AST of 51 ALT of 17. Renal function is stable with a creatinine of 0.7. No significant leukocytosis. The patient has underlying lymphopenia. Enteral feeding will be started on her for nutritional support. Echocardiogram is to follow. On 12/03/2019, I'm seeing this patient for a follow-up. Clinically signific antly since her the same compared to yesterday. She is sedated on propofol at the rate of 75 mcg/kg per minute and the patient is also on fentanyl at 1 mcg/kg/h. She is requiring a lot of stresses in her urine output is very much dependent that pressor. She is on norepinephrine infusion at the rate of 0.03 units per kilogram per minute. And the patient's is on a normal saline infusion at the rate of 10 mL an hour. Her net fluid balance is +0.9 L over the past 24 hours. The patient's is an assist-control mode at the rate of 20 with tidal volume of 350 and FiO2 of 40% with a PEEP of 12. Chest x-ray findings are essentially the same and unchanged compared to yesterday. The blood gases from today showed a pH of 7.44 with a pCO2 of 40 and pO2 of 67 and this was done and FiO2 of 40%. Peak airway pressure is 31. Plateau airway pressure is 27. The CRP level is at 387 which is higher compared to yesterday. The LDH level is 925 which is lower compared to yesterday. Creatinine is at 0.5. TPN is at 16. The patient is afebrile for now. The patient remains on a combination of Plaquenil and zinc sulfate. The patient is also on IV Rocephin as an empiric antibiotic coverage. No other significant events otherwise for now. She is tolerating her tube feeds which is running at the rate of 27 mL an hour. On 12/04/2019 the patient is being seen for a follow-up. She is a case of Covid 19 pneumonia/respiratory failure requiring intubation mechanical ventilation. This morning, the patient remains sedated with propofol running at 50 g and fentanyl running at 1 mcg/kg/h. Chest x-ray findings show some improved aeration of the left lung base. ET tube is in a good location. The patient has a left subclavian triple-lumen catheter in place. The patient is an assist- control mode at the rate of 20 with a tidal volume of 350 and FiO2 of 40% with a PEEP of 12. The PF ratio is 154. The peak airway pressure is 29. Static pressure is 26. The LDH level is at 880, CPK is 251, CRP is a 61, and the patient has elevated d-dimer of 4.97. Noted the patient is or the on anticoag ulation with Xarelto which was given to her for her chronic atrial fibrillation and this was continued. She is tolerating her enteral feeding for support. She is in a positive fluid balance of 1 L. She is afebrile. The patient has no leukocytosis. Function is stable with a creatinine of 0.5 with a BUN of 21. Electrodes are all within normal limits. Enterofeeding is being provided at the rate of 27 mL an hour. She remains on Plaquenil. IV Solu-Medrol was added. She is receiving IV Solu Medrol 4 mg every 12 hours. She is on empiric antibiotic coverage with Rocephin. Pressor medications are unchanged. She is on normal saline at the rate of 20 mL an hour. Reevaluated today on 12/05/19, patient remains intubated and mechanically ventilated, her ventilator settings are assist control rate of 20 tidal volume of 350 FiO2 40%, and the PEEP was brought to 8 from 11. ABG showed a pO2 of 79 pCO2 of 42 pH of 7.45. Her peak airway pressure is 30 left toe pressure is 25. Chest x-ray continues to show by basilar infiltrates. Patient remains on fentanyl at 1 mcg/kg/h, propofol at 50 mcg/kg/m, norepinephrine at 0.005 mcg/kg/m. Receiving Plaquenil, zinc, Solu-Medrol, and ceftriaxone. Markers including ferritin is 460, LDH is a 22, C-reactive protein is 170 liver enzymes are normal. Patient remains on enteral feeding. Remains on Xarelto 4 history of chronic atrial fibrillation. Renal functioning is normal. Electrodes lites are normal. IV fluid rate remained the same. Reevaluated today on 12/04 Reevaluated today on 12/06/19, remains intubated, mechanically ventilated. Her v entilator settings are assist control rate of 20 tidal volume of 350 FiO2 is 40%, PEEP is 8. Patient is on propofol at 20 mcg/kg/m, she is also on fentanyl at a very low dose, based on the ABG, no vent changes were made. Chest x-ray continues to show basilar infiltrates. Not much of a change in her overall chest x-ray appearance. ABG today showed a pO2 of 86 pCO2 of 38 pH of 7.49. CBC is relatively normal. Basic metabolic profile is normal. Inflammatory markers are improved ferritin is 4:15, C-reactive protein is 73 LDH is 821. Patient remains on enteral feeding. And tolerating that quite well. Patient was reevaluated today on 12/07/19, remains in the ICU, on mechanical ventilation, her sedatives have been on hold since yesterday, however at night she was given Dilaudid and given Ativan for mild anxiety on mechanical ventilation. Patient seems to be awake today, following simple instructions. Wiggling her toes, moving her arms, and seems to comprehend what's going on. Her ventilator settings are assist control rate of 20 tidal volume of 350 FiO2 of 40%, and PEEP was 8. Patient remains on clevidipine 3 mg/h, and her IV fluid is 0.9 normal saline at 40 mL per hour. After evaluating the patient, and evaluating her chest x-ray, which is basically unchanged compared to yesterday, continues to have some perihilar and basilar infiltrates. No change compared to yesterday. I recommended patient to be placed on a viral of pressure support of 8 and CPAP of 5, and if tolerated the patient could be weaned and extubated. This was done, follow-up ABG after 1 hour of pressure support and CPAP showed a pO2 of 98 pCO2 of 33 and pH of 7.51. Hence I recommended stopping all her narcotics and sedatives, and recommended extubating the patient to a nasal cannula. Objective - Vital Signs Vital signs: Vital Signs Temp 99.0 F 12/07/19 12:00 Pulse 107 H 12/07/19 12:00 Resp 13 12/07/19 12:00 BP 137/69 12/07/19 12:00 Pulse Ox 94 L 12/07/19 12:00 Intake & Output 12/06/19 12/07/19 12/07/19 18:59 06:59 18:59 Intake Total 945.788 3328.05 326.334 Output Total 567 565 390 Balance 279.360 468.05 -63.666 Weight 81.3 kg 79.2 kg 79.2 kg Intake: IV 542 552 276 Normal Saline Pressure 72 72 36 Bag Sodium Chloride 0.9% 1, 420 480 140 000 ml @ 20 mls/hr IV . Q24H [facility] Rx#:[id number] cefTRIAXone 1 gm In 50 100 Sodium Chloride 0.9% 50 ml @ 100 mls/hr IVPB Q24HR [facility] Rx#:[id number] Intake, IV Titration 196.360 67.05 23.334 Amount Clevidipine Butyrate 25 51.400 67.05 23.334 mg In Empty Bag 1 bag @ 1 MG/HR 2 mls/hr IV .Q24H [facility] Rx#:[id number] Propofol 1,000 mg In 134.854 Empty Bag 1 bag @ Titrate IV .Q0M [facility] Rx#: [id number] fentaNYL (PF) 1,000 mcg 10.106 In Sodium Chloride 0.9% 80 ml @ 1 MCG/KG/HR 6.93 mls/hr IV .[id number] [facility] Rx #:[id number] Tube Feeding 108 324 27 Other 90 Output: Urine 567 565 390 Other: Voiding Method Indwelling Catheter Indwelling Catheter Indwelling Catheter # Voids 0 ABP, PAP, CO, CI - Last Documented Arterial Blood Pressure 147/58 - Exam Physical Exam revealed 74-year-old female in no distress. Intubated and mechan ically ventilated awake, follows simple instructions. HEENT:: PERRLA, EOMI, no icterus, left subclavian triple-lumen catheter is noted in place. Head: Atraumatic normocephalic endotracheal tube and orogastric tubes are intact. Patient seems to have loose frontal bottom teeth, apparently been biting on the endotracheal tube or probably related to intubation when the patient was intubated. [No neck masses.] [No thyromegaly.] [No JVD.] Chest: [Crackles at the bases, no rhonchi and no wheezes. Cardiac Exam: Irregular irregular rhythm. [Normal S1 and S2, no S3 gallop, no murmur.] Abdomen: [Soft, nontender, no megaly, no rebound, no guarding, normal bowel sounds.] Extremities: [No clubbing, no edema, no cyanosis.] Neurological Exam: Alert and oriented 3, no gross focal neurologic deficits. Psychiatric: Blunted mood and affect, relatively normal mental status exam. Skin: No rashes. - Labs CBC & Chem 7: 12/07/19 05:50 12/07/19 05:50 Labs: Abnormal Lab Results - Last 24 Hours (Table) 12/03/19 12/06/19 12/06/19 Range/Units 11:20 18:05 23:08 RBC (3.80-5.40) m/uL Hgb (11.4-16.0) gm/dL Hct (34.0-46.0) % Lymphocytes # (1.0-4.8) k/uL ABG pH (7.35-7.45) ABG pCO2 (35-45) mmHg ABG pO2 (83-108) mmHg ABG HCO3 (21-25) mmol/L ABG Total CO2 (19-24) mmol/L ABG O2 Saturation (94-97) % Sodium (137-145) mmol/L Chloride (98-107) mmol/L BUN (7-17) mg/dL Glucose (74-99) mg/dL POC Glucose (mg/dL) 126 H 123 H (75-99) mg/dL AST (14-36) U/L ALT (4-34) U/L Total Protein (6.3-8.2) g/dL Albumin (3.5-5.0) g/dL Interleukin 6 13 H (<=5) pg/mL 12/07/19 12/07/19 12/07/19 Range/Units 05:50 05:50 05:53 RBC 3.45 L (3.80-5.40) m/uL Hgb 10.0 L (11.4-16.0) gm/dL Hct 32.1 L (34.0-46.0) % Lymphocytes # 0.6 L (1.0-4.8) k/uL ABG pH (7.35-7.45) ABG pCO2 (35-45) mmHg ABG pO2 (83-108) mmHg ABG HCO3 (21-25) mmol/L ABG Total CO2 (19-24) mmol/L ABG O2 Saturation (94-97) % Sodium 146 H (137-145) mmol/L Chloride 110 H (98-107) mmol/L BUN 31 H (7-17) mg/dL Glucose 112 H (74-99) mg/dL POC Glucose (mg/dL) 109 H (75-99) mg/dL AST 56 H (14-36) U/L ALT 40 H (4-34) U/L Total Protein 5.7 L (6.3-8.2) g/dL Albumin 2.6 L (3.5-5.0) g/dL Interleukin 6 (<=5) pg/mL 12/07/19 12/07/19 12/07/19 Range/Units 07:41 10:17 12:36 RBC (3.80-5.40) m/uL Hgb (11.4-16.0) gm/dL Hct (34.0-46.0) % Lymphocytes # (1.0-4.8) k/uL ABG pH 7.46 H 7.51 H (7.35-7.45) ABG pCO2 33 L (35-45) mmHg ABG pO2 111 H (83-108) mmHg ABG HCO3 27 H 26 H (21-25) mmol/L ABG Total CO2 29 H 27 H (19-24) mmol/L ABG O2 Saturation 98.7 H 98.3 H (94-97) % Sodium (137-145) mmol/L Chloride (98-107) mmol/L BUN (7-17) mg/dL Glucose (74-99) mg/dL POC Glucose (mg/dL) 123 H (75-99) mg/dL AST (14-36) U/L ALT (4-34) U/L Total Protein (6.3-8.2) g/dL Albumin (3.5-5.0) g/dL Interleukin 6 (<=5) pg/mL Assessment and Plan Assessment: Impression: Acute hypoxic respiratory failure secondary to pneumonia Acute covid 19 pneumonitis., ARDS secondary to pneumonitis as above. History of COPD History of hypertension Chronic atrial fibrillation, on Xarelto Septic shock upon presentation, resolved. Acute gram-negative urinary tract infection with Klebsiella pneumoniae Loose bottom front teeth, could be related to intubation or patient has been biting hard on the endotracheal tube when she was intubated. May consider dental evaluation down the line. Recommendation: Patient will be given a trial of pressure support and CPAP, and if tolerated will likely extubate the patient today. Continue the course of treatment for her pneumonitis. Continue Rocephin for UTI. If extubated patient will be switched to oral feeding. Continue GI and DVT prophylaxis. Will likely consider dental consultation to evaluate her loose bottom frontal teeth. Patient remains critically ill, We'll continue to monitor in the ICU. Critical care time is 34 minutes Time with Patient: Greater than 30
--- NOTE | 2019-12-07 15:47 | P.PN ---
Subjective Progress Note Date: 12/07/19 Principal diagnosis: COVID pneumonia Patient is a 74-year-old -[place] female with a past medical history of hypertension, mild COPD, and paroxysmal atrial fibrillation on Xarelto who presented to [facility] emergency department with complaints of coughing, headache, and shortness of breath. She was transferred here due to the covert relief effort. Initial evaluation consistent with atypical or viral pneumonia with probable covert 19. She had testing done at [facility] which was positive for COVID-19. She was started on hydroxychloroquine, zinc, and as needed Tylen ol. Pulmonary was consulted. Her O2 requirement continued to increase. Chest x-ray consistent with pneumonia/ARDS picture. We had a long discussion she was okay with elective intubation. She was intubated on the afternoon of 11/30/2019. She did require propofol, fentanyl, norepinephrine, and antibiotics. She had not made significant progress by 12/03/2019 and continued to spike fevers. She was s tarted on Solumedrol on 12/04/2019. Patient was seen and examined. Patient was extubated this morning. Unable to speak at this time but mumbling and whispering. Apparently per nursing, patient was following commands prior to extubation. ABG showing pH 7.51, pCO2 33, pO2 98. Sodium slightly elevated at 146. Objective - Vital Signs Vital signs: Vital Signs Temp 99.0 F 12/07/19 12:00 Pulse 116 H 12/07/19 15:00 Resp 16 12/07/19 15:00 BP 135/68 12/07/19 15:00 Pulse Ox 99 12/07/19 15:00 Intake & Output 12/06/19 12/07/19 12/07/19 18:59 06:59 18:59 Intake Total 374.585 1663.05 404.334 Output Total 567 565 590 Balance 279.360 468.05 -185.666 Weight 81.3 kg 79.2 kg 79.2 kg Intake: IV 542 552 354 Normal Saline Pressure 72 72 54 Bag Sodium Chloride 0.9% 1, 420 480 200 000 ml @ 20 mls/hr IV . Q24H NGUYEN Rx#:[id number] cefTRIAXone 1 gm In 50 100 Sodium Chloride 0.9% 50 ml @ 100 mls/hr IVPB Q24HR NGUYEN Rx#:[id number] Intake, IV Titration 196.360 67.05 23.334 Amount Clevidipine Butyrate 25 51.400 67.05 23.334 mg In Empty Bag 1 bag @ 1 MG/HR 2 mls/hr IV .Q24H NGUYEN Rx#:[id number] Propofol 1,000 mg In 134.854 Empty Bag 1 bag @ Titrate IV .Q0M NGUYEN Rx#: [id number] fentaNYL (PF) 1,000 mcg 10.106 In Sodium Chloride 0.9% 80 ml @ 1 MCG/KG/HR 6.93 mls/hr IV .[id number] NGUYEN Rx #:[id number] Tube Feeding 108 324 27 Other 90 Output: Urine 567 565 590 Other: Voiding Method Indwelling Catheter Indwelling Catheter Indwelling Catheter # Voids 0 ABP, PAP, CO, CI - Last Documented Arterial Blood Pressure 144/57 - Exam General: [non toxic], [no distress, appears lethargic], [appears at stated age] Derm: [warm], [dry] Head: [atraumatic], [normocephalic], [symmetric] Eyes: [EOMI], [no lid lag], [anicteric sclera] Mouth: [no lip lesion], [mucus membranes moist] Cardiovascular: [S1S2 reg], [tachycardic], [positive DP pulse bilateral], Lungs: [Coarse breath sounds bilateral], [no rhonchi, no rales] , [no accessory muscle use] Abdominal: [soft], [ nontender to palpation], [no guarding], [no appreciable organomegaly] Ext: [no gross muscle atrophy], [no edema], [no contractures] Neuro: [Unable to determine] Psych: [Unable to determine] - Labs CBC & Chem 7: 12/07/19 05:50 12/07/19 05:50 Labs: Abnormal Lab Results - Last 24 Hours (Table) 12/03/19 12/06/19 12/06/19 Range/Units 11:20 18:05 23:08 RBC (3.80-5.40) m/uL Hgb (11.4-16.0) gm/dL Hct (34.0-46.0) % Lymphocytes # (1.0-4.8) k/uL ABG pH (7.35-7.45) ABG pCO2 (35-45) mmHg ABG pO2 (83-108) mmHg ABG HCO3 (21-25) mmol/L ABG Total CO2 (19-24) mmol/L ABG O2 Saturation (94-97) % Sodium (137-145) mmol/L Chloride (98-107) mmol/L BUN (7-17) mg/dL Glucose (74-99) mg/dL POC Glucose (mg/dL) 126 H 123 H (75-99) mg/dL AST (14-36) U/L ALT (4-34) U/L Total Protein (6.3-8.2) g/dL Albumin (3.5-5.0) g/dL Interleukin 6 13 H (<=5) pg/mL 12/07/19 12/07/19 12/07/19 Range/Units 05:50 05:50 05:53 RBC 3.45 L (3.80-5.40) m/uL Hgb 10.0 L (11.4-16.0) gm/dL Hct 32.1 L (34.0-46.0) % Lymphocytes # 0.6 L (1.0-4.8) k/uL ABG pH (7.35-7.45) ABG pCO2 (35-45) mmHg ABG pO2 (83-108) mmHg ABG HCO3 (21-25) mmol/L ABG Total CO2 (19-24) mmol/L ABG O2 Saturation (94-97) % Sodium 146 H (137-145) mmol/L Chloride 110 H (98-107) mmol/L BUN 31 H (7-17) mg/dL Glucose 112 H (74-99) mg/dL POC Glucose (mg/dL) 109 H (75-99) mg/dL AST 56 H (14-36) U/L ALT 40 H (4-34) U/L Total Protein 5.7 L (6.3-8.2) g/dL Albumin 2.6 L (3.5-5.0) g/dL Interleukin 6 (<=5) pg/mL 12/07/19 12/07/19 12/07/19 Range/Units 07:41 10:17 12:36 RBC (3.80-5.40) m/uL Hgb (11.4-16.0) gm/dL Hct (34.0-46.0) % Lymphocytes # (1.0-4.8) k/uL ABG pH 7.46 H 7.51 H (7.35-7.45) ABG pCO2 33 L (35-45) mmHg ABG pO2 111 H (83-108) mmHg ABG HCO3 27 H 26 H (21-25) mmol/L ABG Total CO2 29 H 27 H (19-24) mmol/L ABG O2 Saturation 98.7 H 98.3 H (94-97) % Sodium (137-145) mmol/L Chloride (98-107) mmol/L BUN (7-17) mg/dL Glucose (74-99) mg/dL POC Glucose (mg/dL) 123 H (75-99) mg/dL AST (14-36) U/L ALT (4-34) U/L Total Protein (6.3-8.2) g/dL Albumin (3.5-5.0) g/dL Interleukin 6 (<=5) pg/mL Assessment and Plan Assessment: Bilateral pneumonia secondary to COVID 19 with ARDS and acute hypoxic re spiratory failure requiring intubation -Continue with Plaquenil, steroids initiated by pulmonary -Symbicort, albuterol inhaler -Patient extubated 12/07/2019. -Trend d-dimer, LDH, CRP, CPK -Follow chest x-ray until clear -Pulmonary critical care recommendations appreciated -Follow QT interval -Gentle IV fluids Hypernatremia - Likely due to free water loss. Mildly elevated. Repeat tomorrow morning. Klebsiella UTI - Rocephin D # 6, continue for 1 more day Elevated d-dimer - Possible microthrombi due to above infection. Patient is on Xarelto which will be continued due to history of chronic A. fib. Hypothyroidism -Synthroid Hypertension -Patient continued on clevidipine drip Paroxysmal atrial fibrillation -Metoprolol IV as needed with parameters -Continue with Xarelto COPD without acute exacerbation -Bronchodilators Dyslipidemia -Statin therapy DVT prophylaxis: Xarelto Discussed with: Patient Anticipated discharge: undetermined Anticipated discharge place: undetermined A total of 35 minutes was spent on the care of this complex patient more than 50% of the time was spent in counseling and care coordination.
--- NOTE | 2019-12-07 17:12 | PN ---
PROGRESS NOTE DATE OF SERVICE: 12/07/2019 REASON FOR FOLLOWUP: Acute COVID-19 pneumonia. INTERVAL HISTORY: The patient is currently afebrile. Patient has been extubated this morning, currently on nasal cannula oxygen. She was slightly lethargic and weak. Did have a weak cough, no vomiting or diarrhea has been reported. She was unable to provide any reliable history. PHYSICAL EXAMINATION: Blood pressure 143/57, pulse of 101, temperature of 99. She is 97% on 5 L nasal cannula. General description is an elderly female, lying in bed in no distress. RESPIRATORY SYSTEM: Unlabored breathing, decreased breath sounds at the base, no wheeze. HEART: S1, S2. Regular rate and rhythm. ABDOMEN: Soft, no tenderness. LABS: Hemoglobin is 10, white count of 8.0. BUN of 31, creatinine 0.61. DIAGNOSTIC IMPRESSION AND PLAN: 1. Patient with acute COVID-19 pneumonia, patient seemed to have shown some clinical improvement. She will continue with the Plaquenil, Zinc and Solu-Medrol. 2. Klebsiella urinary tract infection covered with Rocephin. Continue supportive care. MMODL / IJN: [id number] /
[2019-12-07 18:17] LABS: Glucose,Whole Blood 113 mg/dL (75-99)
[2019-12-07] MEDS: SODIUM CHLORIDE 0.9% 1,000 ML IV SCH (18:21)
[2019-12-07 23:53] LABS: Glucose,Whole Blood 104 mg/dL (75-99)
[2019-12-08] MEDS: CLEVIDIPINE BUTYRATE 25 MG in EMPTY BAG 1 BAG IV SCH ×3 (00:12→23:10)
[2019-12-08] MEDS: INSULIN ASPART (NovoLOG) 100 UNIT/ML VIAL SQ SCH ×4 (00:12→16:50)
[2019-12-08] MEDS: fentaNYL (PF) 1,000 MCG in SODIUM CHLORIDE 0.9% 80 ML IV SCH (01:13)
[2019-12-08 05:32] LABS: Basophils % (A) 0 %; Eosinophils % (A) 0 %; HCT 33.8 % (34.0-46.0); HGB 10.9 gm/dL (11.4-16.0); Hypochromasia Slight; Lymphocytes # (A) 0.7 k/uL (1.0-4.8); Lymphocytes % (A) 8 %; MCH 29.5 pg (25.0-35.0); MCHC 32.3 g/dL (31.0-37.0); MCV 91.2 fL (80.0-100.0); Mean Platelet Volume 8.1; Monocytes # (A) 0.7 k/uL (0-1.0); Monocytes % (A) 8 %; Neutrophils # (A) 7.6 k/uL (1.3-7.7); Neutrophils % (A) 82 %; Platelet Count 349 k/uL (150-450); RBC 3.71 m/uL (3.80-5.40); RDW 13.7 % (11.5-15.5); WBC 9.3 k/uL (3.8-10.6)
[2019-12-08 05:37] LABS: ALT 148 U/L (4-34); AST 157 U/L (14-36); African American GFR (CKD) >90 (>60 ml/min/1.73 sqM); Albumin 2.9 g/dL (3.5-5.0); Alkaline Phosphatase 107 U/L (38-126); Anion Gap 6 mmol/L; Blood Urea Nitrogen 19 mg/dL (7-17); Calcium 8.8 mg/dL (8.4-10.2); Carbon Dioxide 26 mmol/L (22-30); Chloride 110 mmol/L (98-107); Glucose 119 mg/dL (74-99); Non-African American GFR(CKD) 89 (>60 ml/min/1.73 sqM); Potassium 3.6 mmol/L (3.5-5.1); Sodium 142 mmol/L (137-145); Total Bilirubin 1.5 mg/dL (0.2-1.3); Total Protein 5.9 g/dL (6.3-8.2)
[2019-12-08 05:41] LABS: C Reactive Protein 33.5 mg/L (<10.0)
[2019-12-08] MEDS: LEVOTHYROXINE 100 MCG TAB PO SCH (06:12)
[2019-12-08] MEDS: POTASSIUM CHLORIDE 10 MEQ in WATER FOR INJECTION 1 100ML.BAG IVPB SCH ×2 (06:55→08:19)
--- NOTE | 2019-12-08 07:59 | XR ---
EXAMINATION TYPE: XR chest 1V DATE OF EXAM: 12/08/2019 COMPARISON: 12/07/2019 INDICATION: Covid 19 TECHNIQUE: Single frontal view of the chest is obtained. FINDINGS: The heart size is normal. The pulmonary vasculature is slightly prominent. There is diffuse increased lung markings greater in the lower lobes. Small bilateral pleural effusion s. Present. The patient has been extubated and the nasogastric tube removed. Left central venous catheter remains present with the tip in the superior vena cava region. IMPRESSION: 1. Mild by basilar infiltrates. No significant worsening is evident. 2. Left central venous catheter stable.
[2019-12-08] MEDS: methylPREDNISolone SOD SUCCI 40 MG/ML 1 ML VIAL IV SCH ×2 (08:18→20:22)
[2019-12-08] MEDS: ZINC SULFATE 220 MG CAP PO SCH (08:18)
[2019-12-08] MEDS: ASPIRIN 81 MG PO SCH (08:18)
[2019-12-08] MEDS: RIVAROXABAN 20 MG TAB PO SCH (08:18)
[2019-12-08] MEDS: HYDROXYCHLOROQUINE ORAL SUSP 200 MG/8 ML ORAL.SYRG PO SCH ×2 (08:18→20:25)
[2019-12-08] MEDS: CHLORHEXIDINE GLUCONATE 15 ML CUP MUCOUS MEM SCH (08:19)
[2019-12-08] MEDS: PANTOPRAZOLE 40 MG/10 ML VIAL IVP SCH (08:19)
[2019-12-08] MEDS: METOPROLOL TARTRATE 25 MG TAB PO SCH ×2 (09:53→20:22)
[2019-12-08] MEDS: amLODIPine 5 MG TAB PO SCH ×2 (09:53→20:22)
[2019-12-08 11:33] LABS: Ferritin 341.3 ng/mL (10.0-291.0)
[2019-12-08 11:35] LABS: Glucose,Whole Blood 93 mg/dL (75-99)
--- NOTE | 2019-12-08 12:34 | P.PN ---
Subjective Progress Note Date: 12/08/19 Principal diagnosis: Acute covid 19 pneumonia and acute hypoxic respiratory failure, secondary to pneumonia and ARDS This is a 74-year-old -[place] female patient who lives in [place]. The patient has history of atrial fibrillation and she has been maintained on Xarelto on long-term basis. The patient felt febrile and had increased cough approximately a week ago. She end up going to [facility] where she was tested and she was confirmed to have positive: 19 infection. The patient was discharged home. However, as the patient became more short of b reath and her cough that is worse, the patient presented to ED department at [facility] where she was evaluated and she was placed on high flow oxygen because of her ongoing hypoxemia. The patient's pulse ox apparently was in the low 80s and she was given supplemental oxygen including 100% nonrebreather facemask. The patient got transferred to us for further monitoring and treatment. The patient's white cell count was at 4.4 at time of admission and the patient had a lymphopenia with a lymphocyte level of 0.7. Hemoglobin was at 13.3. Platelet count was 222, LFTs are unremarkable, the troponin was negative, CRP was 122, LDH was 548, ferritin level was 723, CPK was 156 and the lactic acid level was 1.6. Chest x-ray showed bilateral pulmonary infiltrates interstitial changes bilaterally right more than left more so in the lung bases bilaterally. Clinically, despite hypoxemia, the patient seems to be quite stable and she is struggling with her breathing. She is not using some ecchymosis of breathing. She is currently on high flow oxygen at 10 L in addition to 100% on a beta facemasks and pulse ox is around 87-90%. No nausea. No vomiting. No altered mentation. No chest pain. Her cardiac rhythm is still in atrial fibrillation. The patient was started on Plaquenil. She is an ex- smoker. She has history of COPD and she has been maintained on Stiolto on outpatient basis. On 12/01/2019 and seeing this patient for a follow-up. As mentioned earlier the patient was Hospital as for an acute Covid 19 pneumonia. The patient was on 100% nonrebreather facemask. Yesterday evening, the patient's condition decompensated. As such, the patient had to be intubated and placed on a mechanical ventilator. This was done by [facility] and intubation process was successful. This morning the patient is being seen for a follow-up. The patient currently is on assist-control mode rate of 20 with tidal volume of 350 and FiO2 of 40% with a PEEP of 15. The patient is on propofol which is running at 75 g per KG pigmented and fentanyl drip is running in 1 g per KG per hour. Levothroid has also be used at a dose of 0.04 g per KG pigmented for hemodynamic support. The patient will be started on enteral feeding for nutrition support. Do not lung cancer and a triple-lumen cath was also inserted. Note that the patient is afebrile today. The patient had a T-max of 99.9. The LDH still elevated at 1140. The d-dimer is at 1.19. Blood gases from today shows a pH of 7.36 with a pCO2 of 42 and pO2 of 82. Chest x-ray shows interval insertion of the ET tube and there is bilateral basilar reticular nodular infiltrates and some increased infiltration of the upper lobes bilaterally. The patient's net fluid balance is +1.8 L over the past 24 hours. She'll be started on enteral feeding for nutritional support. She is already on a combination of zinc sulfate and Plaquenil. She was also maintained on anticoagulation with Xarelto regarding her chronic atrial fibrillation. On 12/02/2019, the patient remains intubated on a mechanical ventilator. This morning, the patient is sedated with propofol of 75 mcg/kg per minute and fentanyl at all micrograms per kilogram per hour. The patient remains intubated on mechanical ventilator. The patient is an assist-control mode rate of 20 with tidal volume of 350 and FiO2 of 50% with a PEEP of 15. The patient's chest x- ray shows some limited infiltration of the lung bases along with some scattered bibasilar groundglass and reticulocyte another pulmonary infiltrates. The patient is producing adequate amount of urine output. Norepinephrine infusion is running at a low dose of 0.02 g per KG per minute. The patient developed a lower blood pressure of this pressors and the urine output are also drop. The neck fluid balance is positive troponin 9 L over the past 24 hours. No documented fever. The blood gases from today showed a pH of 7.38 with a pCO2 of 41 and pO2 of 132. The patient's LDH today's 1087 and the 50s up to 578 and the CRP level is at 300. LFTs remain nonelevated with an AST of 51 ALT of 17. Renal function is stable with a creatinine of 0.7. No significant leukocytosis. The patient has underlying lymphopenia. Enteral feeding will be started on her for nutritional support. Echocardiogram is to follow. On 12/03/2019, I'm seeing this patient for a follow-up. Clinically signific antly since her the same compared to yesterday. She is sedated on propofol at the rate of 75 mcg/kg per minute and the patient is also on fentanyl at 1 mcg/kg/h. She is requiring a lot of stresses in her urine output is very much dependent that pressor. She is on norepinephrine infusion at the rate of 0.03 units per kilogram per minute. And the patient's is on a normal saline infusion at the rate of 10 mL an hour. Her net fluid balance is +0.9 L over the past 24 hours. The patient's is an assist-control mode at the rate of 20 with tidal volume of 350 and FiO2 of 40% with a PEEP of 12. Chest x-ray findings are essentially the same and unchanged compared to yesterday. The blood gases from today showed a pH of 7.44 with a pCO2 of 40 and pO2 of 67 and this was done and FiO2 of 40%. Peak airway pressure is 31. Plateau airway pressure is 27. The CRP level is at 387 which is higher compared to yesterday. The LDH level is 925 which is lower compared to yesterday. Creatinine is at 0.5. TPN is at 16. The patient is afebrile for now. The patient remains on a combination of Plaquenil and zinc sulfate. The patient is also on IV Rocephin as an empiric antibiotic coverage. No other significant events otherwise for now. She is tolerating her tube feeds which is running at the rate of 27 mL an hour. On 12/04/2019 the patient is being seen for a follow-up. She is a case of Covid 19 pneumonia/respiratory failure requiring intubation mechanical ventilation. This morning, the patient remains sedated with propofol running at 50 g and fentanyl running at 1 mcg/kg/h. Chest x-ray findings show some improved aeration of the left lung base. ET tube is in a good location. The patient has a left subclavian triple-lumen catheter in place. The patient is an assist- control mode at the rate of 20 with a tidal volume of 350 and FiO2 of 40% with a PEEP of 12. The PF ratio is 154. The peak airway pressure is 29. Static pressure is 26. The LDH level is at 880, CPK is 251, CRP is a 61, and the patient has elevated d-dimer of 4.97. Noted the patient is or the on anticoag ulation with Xarelto which was given to her for her chronic atrial fibrillation and this was continued. She is tolerating her enteral feeding for support. She is in a positive fluid balance of 1 L. She is afebrile. The patient has no leukocytosis. Function is stable with a creatinine of 0.5 with a BUN of 21. Electrodes are all within normal limits. Enterofeeding is being provided at the rate of 27 mL an hour. She remains on Plaquenil. IV Solu-Medrol was added. She is receiving IV Solu Medrol 4 mg every 12 hours. She is on empiric antibiotic coverage with Rocephin. Pressor medications are unchanged. She is on normal saline at the rate of 20 mL an hour. Reevaluated today on 12/05/19, patient remains intubated and mechanically ventilated, her ventilator settings are assist control rate of 20 tidal volume of 350 FiO2 40%, and the PEEP was brought to 8 from 11. ABG showed a pO2 of 79 pCO2 of 42 pH of 7.45. Her peak airway pressure is 30 left toe pressure is 25. Chest x-ray continues to show by basilar infiltrates. Patient remains on fentanyl at 1 mcg/kg/h, propofol at 50 mcg/kg/m, norepinephrine at 0.005 mcg/kg/m. Receiving Plaquenil, zinc, Solu-Medrol, and ceftriaxone. Markers including ferritin is 460, LDH is a 22, C-reactive protein is 170 liver enzymes are normal. Patient remains on enteral feeding. Remains on Xarelto 4 history of chronic atrial fibrillation. Renal functioning is normal. Electrodes lites are normal. IV fluid rate remained the same. Reevaluated today on 12/04 Reevaluated today on 12/06/19, remains intubated, mechanically ventilated. Her v entilator settings are assist control rate of 20 tidal volume of 350 FiO2 is 40%, PEEP is 8. Patient is on propofol at 20 mcg/kg/m, she is also on fentanyl at a very low dose, based on the ABG, no vent changes were made. Chest x-ray continues to show basilar infiltrates. Not much of a change in her overall chest x-ray appearance. ABG today showed a pO2 of 86 pCO2 of 38 pH of 7.49. CBC is relatively normal. Basic metabolic profile is normal. Inflammatory markers are improved ferritin is 4:15, C-reactive protein is 73 LDH is 821. Patient remains on enteral feeding. And tolerating that quite well. Patient was reevaluated today on 12/07/19, remains in the ICU, on mechanical ventilation, her sedatives have been on hold since yesterday, however at night she was given Dilaudid and given Ativan for mild anxiety on mechanical ventilation. Patient seems to be awake today, following simple instructions. Wiggling her toes, moving her arms, and seems to comprehend what's going on. Her ventilator settings are assist control rate of 20 tidal volume of 350 FiO2 of 40%, and PEEP was 8. Patient remains on clevidipine 3 mg/h, and her IV fluid is 0.9 normal saline at 40 mL per hour. After evaluating the patient, and evaluating her chest x-ray, which is basically unchanged compared to yesterday, continues to have some perihilar and basilar infiltrates. No change compared to yesterday. I recommended patient to be placed on a viral of pressure support of 8 and CPAP of 5, and if tolerated the patient could be weaned and extubated. This was done, follow-up ABG after 1 hour of pressure support and CPAP showed a pO2 of 98 pCO2 of 33 and pH of 7.51. Hence I recommended stopping all her narcotics and sedatives, and recommended extubating the patient to a nasal cannula. Reevaluated today on 12/08/19, patient remains in the ICU, she was extubated, and she tolerated the extubation well. She is now on 5 L nasal cannula, O2 saturation is 100%. Remains on clevidipine for elevated blood pressure at 6 mg per hour. Hence we'll switch the patient to oral medications for elevated blood pressure. She has been in sinus tachycardia rate of 105. Patient feels generally weak, however she is not in any distress. CBC is relatively normal d- dimer is elevated at 7.69 electrolytes and renal profile are normal inflammatory markers remain high including ferritin of 341 LDH of 1398 and C-reactive protein is 33.5. Chest x-ray continues to show by basilar infiltrates basically about the same. Compared to yesterday. Objective - Vital Signs Vital signs: Vital Signs Temp 98.4 F 12/08/19 12:00 Pulse 101 H 12/08/19 12:00 Resp 14 12/08/19 12:00 BP 133/69 12/07/19 19:00 Pulse Ox 100 12/08/19 12:00 Intake & Output 12/07/19 12/08/19 12/08/19 18:59 06:59 18:59 Intake Total 729.467 575.333 276 Output Total 765 1140 880 Balance -35.533 -564.667 -604 Weight 79.2 kg 76.4 kg 76.4 kg Intake: IV 652 552 276 Normal Saline Pressure 72 72 36 Bag Sodium Chloride 0.9% 1, 480 480 240 000 ml @ 20 mls/hr IV . Q24H NGUYEN Rx#:[id number] cefTRIAXone 1 gm In 100 Sodium Chloride 0.9% 50 ml @ 100 mls/hr IVPB Q24HR NGUYEN Rx#:[id number] Intake, IV Titration 50.467 23.333 Amount Clevidipine Butyrate 25 50.467 23.333 mg In Empty Bag 1 bag @ 1 MG/HR 2 mls/hr IV .Q24H NGUYEN Rx#:[id number] Tube Feeding 27 Output: Urine 765 1140 880 Other: Voiding Method Indwelling Catheter Indwelling Catheter Indwelling Catheter ABP, PAP, CO, CI - Last Documented Arterial Blood Pressure 154/47 - Exam Physical Exam revealed 74-year-old female in no distress. On few liters nasal cannula. HEENT:: PERRLA, EOMI, no icterus, left subclavian triple-lumen catheter is noted in place. Head: Atraumatic normocephalic. Patient seems to have loose frontal bottom teeth. [No neck masses.] [No thyromegaly.] [No JVD.] Chest: [Crackles at the bases, no rhonchi and no wheezes. Cardiac Exam: Irregular irregular rhythm. [Normal S1 and S2, no S3 gallop, no murmur.] Abdomen: [Soft, nontender, no megaly, no rebound, no guarding, normal bowel sounds.] Extremities: [No clubbing, no edema, no cyanosis.] Neurological Exam: Alert and oriented 3, no gross focal neurologic deficits. Psychiatric: Depressed mood, blunt affect, normal mental status otherwise Skin: No rashes. - Labs CBC & Chem 7: 12/08/19 04:45 12/08/19 04:45 Labs: Abnormal Lab Results - Last 24 Hours (Table) 12/07/19 12/07/19 12/07/19 Range/Units 12:36 18:16 23:52 RBC (3.80-5.40) m/uL Hgb (11.4-16.0) gm/dL Hct (34.0-46.0) % Lymphocytes # (1.0-4.8) k/uL D-Dimer (<0.60) mg/L FEU Chloride (98-107) mmol/L BUN (7-17) mg/dL Glucose (74-99) mg/dL POC Glucose (mg/dL) 123 H 113 H 104 H (75-99) mg/dL Ferritin (10.0-291.0) ng/mL Total Bilirubin (0.2-1.3) mg/dL AST (14-36) U/L ALT (4-34) U/L Lactate Dehydrogenase (313-618) U/L Creatine Kinase (30-135) U/L C-Reactive Protein (<10.0) mg/L Total Protein (6.3-8.2) g/dL Albumin (3.5-5.0) g/dL 12/08/19 12/08/19 12/08/19 Range/Units 04:45 04:45 04:45 RBC 3.71 L (3.80-5.40) m/uL Hgb 10.9 L (11.4-16.0) gm/dL Hct 33.8 L (34.0-46.0) % Lymphocytes # 0.7 L (1.0-4.8) k/uL D-Dimer 7.69 H (<0.60) mg/L FEU Chloride 110 H (98-107) mmol/L BUN 19 H (7-17) mg/dL Glucose 119 H (74-99) mg/dL POC Glucose (mg/dL) (75-99) mg/dL Ferritin (10.0-291.0) ng/mL Total Bilirubin 1.5 H (0.2-1.3) mg/dL AST 157 H (14-36) U/L ALT 148 H (4-34) U/L Lactate Dehydrogenase (313-618) U/L Creatine Kinase (30-135) U/L C-Reactive Protein (<10.0) mg/L Total Protein 5.9 L (6.3-8.2) g/dL Albumin 2.9 L (3.5-5.0) g/dL 12/08/19 Range/Units 04:45 RBC (3.80-5.40) m/uL Hgb (11.4-16.0) gm/dL Hct (34.0-46.0) % Lymphocytes # (1.0-4.8) k/uL D-Dimer (<0.60) mg/L FEU Chloride (98-107) mmol/L BUN (7-17) mg/dL Glucose (74-99) mg/dL POC Glucose (mg/dL) (75-99) mg/dL Ferritin 341.3 H (10.0-291.0) ng/mL Total Bilirubin (0.2-1.3) mg/dL AST (14-36) U/L ALT (4-34) U/L Lactate Dehydrogenase 1398 H (313-618) U/L Creatine Kinase 206 H (30-135) U/L C-Reactive Protein 33.5 H (<10.0) mg/L Total Protein (6.3-8.2) g/dL Albumin (3.5-5.0) g/dL Assessment and Plan Assessment: Impression: Acute hypoxic respiratory failure secondary to pneumonia, significantly improved and the patient was extubated yesterday. Acute covid 19 pneumonitis., ARDS secondary to pneumonitis as above. History of COPD History of hypertension Chronic atrial fibrillation, on Xarelto Septic shock upon presentation, resolved. Acute gram-negative urinary tract infection with Klebsiella pneumoniae Loose bottom front teeth, could be related to intubation or patient has been biting hard on the endotracheal tube when she was intubated. May consider denta l evaluation down the line. Recommendation: Tolerated extubation well over the last 24 hours. Continue the course of treatment for her pneumonitis. Continue Rocephin for UTI. Advanced diet as tolerated. Continue GI and DVT prophylaxis. Hospitalist to address the issue of her loose teeth We'll transfer patient to a regular medical floor with droplet isolation. We'll continue to follow. Time with Patient: Less than 30
[2019-12-08] MEDS: SODIUM CHLORIDE 0.9% 1,000 ML IV SCH (14:18)
--- NOTE | 2019-12-08 14:32 | ECHOF ---
Referral Reason:assess lv MEASUREMENTS -------- HEIGHT: 157.5 cm WEIGHT: 73.9 kg BP: RVIDd: 2.8 cm (< 3.3) IVSd: 1.0 cm (0.6 - 1.1) LVIDd: 3.4 cm (3.9 - 5.3) LVPWd: 1.4 cm (0.6 - 1.1) IVSs: 1.8 cm LVIDs: 1.8 cm LVPWs: 1.8 cm Ao Diam: 2.8 cm (2.0 - 3.7) AV Cusp: 1.8 cm (1.5 - 2.6) LA Diam: 2.4 cm (2.7 - 3.8) MV EXCURSION: 16.399 mm (> 18.000) MV EF SLOPE: 88 mm/s (70 - 150) EPSS: 0.4 cm MV E Kaden: 0.90 m/s MV DecT: 185 ms MV A Kaden: 0.83 m/s MV E/A Ratio: 1.08 RAP: 5.00 mmHg RVSP: 56.28 mmHg FINDINGS -------- Sinus rhythm. This was a technically adequate study. The left ventricular size is normal. There is mild concentric left ventricular hypertrophy. Overa ll left ventricular systolic function is normal with, an EF between 55 - 60 %. The right ventricle is normal in size. The left atrial size is normal. The right atrial size is normal. Aortic valve is trileaflet and is mildly thickened. Mild mitral annular calcification present. Mild mitral regurgitation is present. The tricuspid valve appears structurally normal. Moderate tricuspid regurgitation present. There is moderate pulmonary hypertension. The right ventricular systolic pressure, as measured by Doppler , is 56.28mmHg. There is no pulmonic regurgitation present. The aortic root size is normal. Normal inferior vena cava with normal inspiratory collapse consistent with estimated right atrial pre ssure of 5 mmHg. There is no pericardial effusion. CONCLUSIONS -------- 1. There is mild concentric left ventricular hypertrophy. 2. Overall left ventricular systolic function is normal with, an EF between 55 - 60 %. 3. The left atrial size is normal. 4. Aortic valve is trileaflet and is mildly thickened. 5. Mild mitral annular calcification present. 6. Mild mitral regurgitation is present. 7. Moderate tricuspid regurgitation present. 8. There is moderate pulmonary hypertension. [employer]AYING MACHINE OPERATOR: Kimberley Rees RDCS
--- NOTE | 2019-12-08 15:54 | P.PN ---
Subjective Progress Note Date: 12/08/19 Principal diagnosis: COVID pneumonia Patient is a 74-year-old -[place] female with a past medical history of hypertension, mild COPD, and paroxysmal atrial fibrillation on Xarelto who presented to [facility] emergency department with complaints of coughing, headache, and shortness of breath. She was transferred here due to the covert relief effort. Initial evaluation consistent with atypical or viral pneumonia with probable covert 19. She had testing done at [facility] which was positive for COVID-19. She was started on hydroxychloroquine, zinc, and as needed Tylen ol. Pulmonary was consulted. Her O2 requirement continued to increase. Chest x-ray consistent with pneumonia/ARDS picture. We had a long discussion she was okay with elective intubation. She was intubated on the afternoon of 11/30/2019. She did require propofol, fentanyl, norepinephrine, and antibiotics. She had not made significant progress by 12/03/2019 and continued to spike fevers. She was s tarted on Solumedrol on 12/04/2019. Patient was seen and examined. Patient was extubated yesterday. Patient is on 5 L nasal cannula. She continues to be hypertensive and requires clevidipine drip. She has been started on oral antihypertensive medication. Her d-dimer continues to be elevated at 7.69. Her sodium has improved and is now within normal limits. Ferritin has decreased. Liver enzymes continue to trend upwards along with lactate dehydrogenase and creatinine kinase. CRP has dropped as well. Objective - Vital Signs Vital signs: Vital Signs Temp 98.4 F 12/08/19 12:00 Pulse 92 12/08/19 14:00 Resp 19 12/08/19 14:00 BP 133/69 12/07/19 19:00 Pulse Ox 98 12/08/19 13:00 Intake & Output 12/07/19 12/08/19 12/08/19 18:59 06:59 18:59 Intake Total 729.467 575.333 403.2 Output Total 765 1140 1055 Balance -35.533 -564.667 -651.8 Weight 79.2 kg 76.4 kg 76.4 kg Intake: IV 652 552 368 Normal Saline Pressure 72 72 48 Bag Sodium Chloride 0.9% 1, 480 480 320 000 ml @ 20 mls/hr IV . Q24H NGUYEN Rx#:[id number] cefTRIAXone 1 gm In 100 Sodium Chloride 0.9% 50 ml @ 100 mls/hr IVPB Q24HR NGUYEN Rx#:[id number] Intake, IV Titration 50.467 23.333 35.2 Amount Clevidipine Butyrate 25 50.467 23.333 35.2 mg In Empty Bag 1 bag @ 1 MG/HR 2 mls/hr IV .Q24H NGUYEN Rx#:[id number] Tube Feeding 27 Output: Urine 765 1140 1055 Other: Voiding Method Indwelling Catheter Indwelling Catheter Indwelling Catheter ABP, PAP, CO, CI - Last Documented Arterial Blood Pressure 139/49 - Exam General: [non toxic], [no distress, appears lethargic on 5 L NC], [appears at stated age] Derm: [warm], [dry] Head: [atraumatic], [normocephalic], [symmetric], [poor dentition] Eyes: [EOMI], [no lid lag], [anicteric sclera] Mouth: [no lip lesion], [mucus membranes moist] Cardiovascular: [S1S2 reg], [tachycardic], [positive DP pulse bilateral], Lungs: [Coarse breath sounds bilateral], [no rhonchi, no rales] , [no accessory muscle use] Abdominal: [soft], [ nontender to palpation], [no guarding], [no appreciable organomegaly] Ext: [no gross muscle atrophy], [no edema], [no contractures] Neuro: [No FND] Psych: [Blunt affect, whispering, not communicating much] - Labs CBC & Chem 7: 12/08/19 04:45 12/08/19 04:45 Labs: Abnormal Lab Results - Last 24 Hours (Table) 12/07/19 12/07/19 12/08/19 Range/Units 18:16 23:52 04:45 RBC 3.71 L (3.80-5.40) m/uL Hgb 10.9 L (11.4-16.0) gm/dL Hct 33.8 L (34.0-46.0) % Lymphocytes # 0.7 L (1.0-4.8) k/uL D-Dimer (<0.60) mg/L FEU Chloride (98-107) mmol/L BUN (7-17) mg/dL Glucose (74-99) mg/dL POC Glucose (mg/dL) 113 H 104 H (75-99) mg/dL Ferritin (10.0-291.0) ng/mL Total Bilirubin (0.2-1.3) mg/dL AST (14-36) U/L ALT (4-34) U/L Lactate Dehydrogenase (313-618) U/L Creatine Kinase (30-135) U/L C-Reactive Protein (<10.0) mg/L Total Protein (6.3-8.2) g/dL Albumin (3.5-5.0) g/dL 12/08/19 12/08/19 12/08/19 Range/Units 04:45 04:45 04:45 RBC (3.80-5.40) m/uL Hgb (11.4-16.0) gm/dL Hct (34.0-46.0) % Lymphocytes # (1.0-4.8) k/uL D-Dimer 7.69 H (<0.60) mg/L FEU Chloride 110 H (98-107) mmol/L BUN 19 H (7-17) mg/dL Glucose 119 H (74-99) mg/dL POC Glucose (mg/dL) (75-99) mg/dL Ferritin 341.3 H (10.0-291.0) ng/mL Total Bilirubin 1.5 H (0.2-1.3) mg/dL AST 157 H (14-36) U/L ALT 148 H (4-34) U/L Lactate Dehydrogenase 1398 H (313-618) U/L Creatine Kinase 206 H (30-135) U/L C-Reactive Protein 33.5 H (<10.0) mg/L Total Protein 5.9 L (6.3-8.2) g/dL Albumin 2.9 L (3.5-5.0) g/dL Assessment and Plan Assessment: Bilateral pneumonia secondary to COVID 19 with ARDS and acute hypoxic respiratory failure requiring intubation -Completed course of Plaquenil, steroids initiated by pulmonary -Symbicort, albuterol inhaler -Patient extubated 12/07/2019. -Trend d-dimer, LDH, CRP, CPK -Follow chest x-ray until clear -Pulmonary critical care recommendations appreciated -Follow QT interval -Gentle IV fluids Klebsiella UTI - Completed course of Rocephin for 7 days, will discontinue Elevated d-dimer - Possible microthrombi due to above infection. Patient is on Xarelto which will be continued due to history of chronic A. fib. Hypothyroidism -Synthroid Hypertension -Patient continued on clevidipine drip, Amlodipine and Metoprolol added for better blood pressure management Paroxysmal atrial fibrillation -Metoprolol IV as needed with parameters -Continue with Xarelto COPD without acute exacerbation -Bronchodilators Dyslipidemia -Statin therapy DVT prophylaxis: Xarelto Discussed with: Patient Anticipated discharge: undetermined Anticipated discharge place: undetermined A total of 35 minutes was spent on the care of this complex patient more than 50% of the time was spent in counseling and care coordination.
[2019-12-08 16:49] LABS: Glucose,Whole Blood 100 mg/dL (75-99)
[2019-12-08] MEDS: cloNIDine HCL 0.1 MG TAB PO SCH (20:22)
--- NOTE | 2019-12-08 21:19 | P.PN ---
Progress Note - Text Progress Note Date: 12/08/19 REASON FOR FOLLOWUP: Acute COVID-19 pneumonia. INTERVAL HISTORY: The patient is afebrile. Patient is breathing comfortably on nasal cannula oxygen. She was slightly lethargic and weak. the Pt did have a weak cough, no vomiting or diarrhea has been reported. She was unable to provide any re liable history. PHYSICAL EXAMINATION: Blood pressure 140/50, pulse of 90, temperature of 99. She is 97% on 5 L nasal cannula. General description is an elderly female, lying in bed in no distress. RESPIRATORY SYSTEM: Unlabored breathing, decreased breath sounds at the base, no wheeze. HEART: S1, S2. Regular rate and rhythm. ABDOMEN: Soft, no tenderness. LABS: reviewed DIAGNOSTIC IMPRESSION AND PLAN: 1. Patient with acute COVID-19 pneumonia, patient seemed to have shown some clinical improvement. She will continue with the Plaquenil, Zinc and Solu-Medrol and monitor clinical course closely 2. Klebsiella urinary tract infection covered with Rocephin. Continue supportive care.
[2019-12-08 23:03] LABS: Glucose,Whole Blood 99 mg/dL (75-99)
[2019-12-09] MEDS: INSULIN ASPART (NovoLOG) 100 UNIT/ML VIAL SQ SCH ×5 (00:27→20:46)
[2019-12-09] MEDS: hydrALAZINE HCL 20 MG/ML 1 ML VIAL IVP PRN ×3 (00:36→05:33)
[2019-12-09 05:10] LABS: Basophils % (A) 0 %; Eosinophils % (A) 1 %; HGB 10.9 gm/dL (11.4-16.0); Lymphocytes # (A) 0.5 k/uL (1.0-4.8); Lymphocytes % (A) 7 %; MCHC 31.3 g/dL (31.0-37.0); MCV 92.8 fL (80.0-100.0); Mean Platelet Volume 7.9; Monocytes # (A) 0.4 k/uL (0-1.0); Monocytes % (A) 5 %; Neutrophils % (A) 86 %; Platelet Count 301 k/uL (150-450); RBC 3.77 m/uL (3.80-5.40); RDW 13.9 % (11.5-15.5); WBC 7.1 k/uL (3.8-10.6)
[2019-12-09 05:21] LABS: ALT 238 U/L (4-34); AST 172 U/L (14-36); African American GFR (CKD) >90 (>60 ml/min/1.73 sqM); Albumin 2.6 g/dL (3.5-5.0); Alkaline Phosphatase 108 U/L (38-126); Anion Gap 1 mmol/L; Blood Urea Nitrogen 17 mg/dL (7-17); Calcium 8.8 mg/dL (8.4-10.2); Carbon Dioxide 27 mmol/L (22-30); Chloride 110 mmol/L (98-107); Glucose 102 mg/dL (74-99); Non-African American GFR(CKD) 90 (>60 ml/min/1.73 sqM); Potassium 4.3 mmol/L (3.5-5.1); Sodium 138 mmol/L (137-145); Total Bilirubin 1.2 mg/dL (0.2-1.3); Total Protein 5.7 g/dL (6.3-8.2)
[2019-12-09 06:50] LABS: Glucose,Whole Blood 86 mg/dL (75-99)
[2019-12-09] MEDS: LEVOTHYROXINE 100 MCG TAB PO SCH (06:53)
[2019-12-09] MEDS: PANTOPRAZOLE 40 MG TABLET PO SCH (06:53)
--- NOTE | 2019-12-09 07:03 | XR ---
EXAMINATION TYPE: XR chest 1V portable DATE OF EXAM: 12/09/2019 CLINICAL HISTORY: Difficulty breathing progress study. Covid 19. TECHNIQUE: Single AP portable upright view of the chest is obtained. COMPARISON: Chest x-ray from one day earlier and older studies. FINDING S: Stable left subclavian central venous catheter. Persistent bibasilar opacities. Upper ara gs remain clear. Cardiac silhouette size stable and upper limits of normal. Osseous structures are in tact. IMPRESSION: Overall stable findings, persistent bibasilar acute infiltrates and/or atelectasis
[2019-12-09] MEDS: ASPIRIN 81 MG PO SCH (08:22)
[2019-12-09] MEDS: cloNIDine HCL 0.1 MG TAB PO SCH (08:22)
[2019-12-09] MEDS: amLODIPine 5 MG TAB PO SCH ×2 (08:22→20:51)
[2019-12-09] MEDS: ZINC SULFATE 220 MG CAP PO SCH (08:22)
[2019-12-09] MEDS: METOPROLOL TARTRATE 25 MG TAB PO SCH ×2 (08:22→20:51)
[2019-12-09] MEDS: RIVAROXABAN 20 MG TAB PO SCH (08:22)
[2019-12-09] MEDS: methylPREDNISolone SOD SUCCI 40 MG/ML 1 ML VIAL IV SCH (08:22)
[2019-12-09] MEDS: methylPREDNISolone 4 MG TAB TAPER PO SCH (09:15)
[2019-12-09] MEDS: HYDROXYCHLOROQUINE ORAL SUSP 200 MG/8 ML ORAL.SYRG PO SCH (10:14)
[2019-12-09 11:34] LABS: Glucose,Whole Blood 83 mg/dL (75-99)
--- NOTE | 2019-12-09 12:13 | P.PN ---
Subjective Progress Note Date: 12/09/19 Principal diagnosis: Acute covid 19 pneumonia and acute hypoxic respiratory failure, secondary to pneumonia and ARDS This is a 74-year-old -[place] female patient who lives in [place]. The patient has history of atrial fibrillation and she has been maintained on Xarelto on long-term basis. The patient felt febrile and had increased cough approximately a week ago. She end up going to [facility] where she was tested and she was confirmed to have positive: 19 infection. The patient was discharged home. However, as the patient became more short of b reath and her cough that is worse, the patient presented to ED department at [facility] where she was evaluated and she was placed on high flow oxygen because of her ongoing hypoxemia. The patient's pulse ox apparently was in the low 80s and she was given supplemental oxygen including 100% nonrebreather facemask. The patient got transferred to us for further monitoring and treatment. The patient's white cell count was at 4.4 at time of admission and the patient had a lymphopenia with a lymphocyte level of 0.7. Hemoglobin was at 13.3. Platelet count was 222, LFTs are unremarkable, the troponin was negative, CRP was 122, LDH was 548, ferritin level was 723, CPK was 156 and the lactic acid level was 1.6. Chest x-ray showed bilateral pulmonary infiltrates interstitial changes bilaterally right more than left more so in the lung bases bilaterally. Clinically, despite hypoxemia, the patient seems to be quite stable and she is struggling with her breathing. She is not using some ecchymosis of breathing. She is currently on high flow oxygen at 10 L in addition to 100% on a beta facemasks and pulse ox is around 87-90%. No nausea. No vomiting. No altered mentation. No chest pain. Her cardiac rhythm is still in atrial fibrillation. The patient was started on Plaquenil. She is an ex- smoker. She has history of COPD and she has been maintained on Stiolto on outpatient basis. On 12/01/2019 and seeing this patient for a follow-up. As mentioned earlier the patient was Hospital as for an acute Covid 19 pneumonia. The patient was on 100% nonrebreather facemask. Yesterday evening, the patient's condition decompensated. As such, the patient had to be intubated and placed on a mechanical ventilator. This was done by [employer] and intubation process was successful. This morning the patient is being seen for a follow-up. The patient currently is on assist-control mode rate of 20 with tidal volume of 350 and FiO2 of 40% with a PEEP of 15. The patient is on propofol which is running at 75 g per KG pigmented and fentanyl drip is running in 1 g per KG per hour. Levothroid has also be used at a dose of 0.04 g per KG pigmented for hemodynamic support. The patient will be started on enteral feeding for nutrition support. Do not lung cancer and a triple-lumen cath was also inserted. Note that the patient is afebrile today. The patient had a T-max of 99.9. The LDH still elevated at 1140. The d-dimer is at 1.19. Blood gases from today shows a pH of 7.36 with a pCO2 of 42 and pO2 of 82. Chest x-ray shows interval insertion of the ET tube and there is bilateral basilar reticular nodular infiltrates and some increased infiltration of the upper lobes bilaterally. The patient's net fluid balance is +1.8 L over the past 24 hours. She'll be started on enteral feeding for nutritional support. She is already on a combination of zinc sulfate and Plaquenil. She was also maintained on anticoagulation with Xarelto regarding her chronic atrial fibrillation. On 12/02/2019, the patient remains intubated on a mechanical ventilator. This morning, the patient is sedated with propofol of 75 mcg/kg per minute and fentanyl at all micrograms per kilogram per hour. The patient remains intubated on mechanical ventilator. The patient is an assist-control mode rate of 20 with tidal volume of 350 and FiO2 of 50% with a PEEP of 15. The patient's chest x- ray shows some limited infiltration of the lung bases along with some scattered bibasilar groundglass and reticulocyte another pulmonary infiltrates. The patient is producing adequate amount of urine output. Norepinephrine infusion is running at a low dose of 0.02 g per KG per minute. The patient developed a lower blood pressure of this pressors and the urine output are also drop. The neck fluid balance is positive troponin 9 L over the past 24 hours. No documented fever. The blood gases from today showed a pH of 7.38 with a pCO2 of 41 and pO2 of 132. The patient's LDH today's 1087 and the 50s up to 578 and the CRP level is at 300. LFTs remain nonelevated with an AST of 51 ALT of 17. Renal function is stable with a creatinine of 0.7. No significant leukocytosis. The patient has underlying lymphopenia. Enteral feeding will be started on her for nutritional support. Echocardiogram is to follow. On 12/03/2019, I'm seeing this patient for a follow-up. Clinically signific antly since her the same compared to yesterday. She is sedated on propofol at the rate of 75 mcg/kg per minute and the patient is also on fentanyl at 1 mcg/kg/h. She is requiring a lot of stresses in her urine output is very much dependent that pressor. She is on norepinephrine infusion at the rate of 0.03 units per kilogram per minute. And the patient's is on a normal saline infusion at the rate of 10 mL an hour. Her net fluid balance is +0.9 L over the past 24 hours. The patient's is an assist-control mode at the rate of 20 with tidal volume of 350 and FiO2 of 40% with a PEEP of 12. Chest x-ray findings are essentially the same and unchanged compared to yesterday. The blood gases from today showed a pH of 7.44 with a pCO2 of 40 and pO2 of 67 and this was done and FiO2 of 40%. Peak airway pressure is 31. Plateau airway pressure is 27. The CRP level is at 387 which is higher compared to yesterday. The LDH level is 925 which is lower compared to yesterday. Creatinine is at 0.5. TPN is at 16. The patient is afebrile for now. The patient remains on a combination of Plaquenil and zinc sulfate. The patient is also on IV Rocephin as an empiric antibiotic coverage. No other significant events otherwise for now. She is tolerating her tube feeds which is running at the rate of 27 mL an hour. On 12/04/2019 the patient is being seen for a follow-up. She is a case of Covid 19 pneumonia/respiratory failure requiring intubation mechanical ventilation. This morning, the patient remains sedated with propofol running at 50 g and fentanyl running at 1 mcg/kg/h. Chest x-ray findings show some improved aeration of the left lung base. ET tube is in a good location. The patient has a left subclavian triple-lumen catheter in place. The patient is an assist- control mode at the rate of 20 with a tidal volume of 350 and FiO2 of 40% with a PEEP of 12. The PF ratio is 154. The peak airway pressure is 29. Static pressure is 26. The LDH level is at 880, CPK is 251, CRP is a 61, and the patient has elevated d-dimer of 4.97. Noted the patient is or the on anticoag ulation with Xarelto which was given to her for her chronic atrial fibrillation and this was continued. She is tolerating her enteral feeding for support. She is in a positive fluid balance of 1 L. She is afebrile. The patient has no leukocytosis. Function is stable with a creatinine of 0.5 with a BUN of 21. Electrodes are all within normal limits. Enterofeeding is being provided at the rate of 27 mL an hour. She remains on Plaquenil. IV Solu-Medrol was added. She is receiving IV Solu Medrol 4 mg every 12 hours. She is on empiric antibiotic coverage with Rocephin. Pressor medications are unchanged. She is on normal saline at the rate of 20 mL an hour. Reevaluated today on 12/05/19, patient remains intubated and mechanically ventilated, her ventilator settings are assist control rate of 20 tidal volume of 350 FiO2 40%, and the PEEP was brought to 8 from 11. ABG showed a pO2 of 79 pCO2 of 42 pH of 7.45. Her peak airway pressure is 30 left toe pressure is 25. Chest x-ray continues to show by basilar infiltrates. Patient remains on fentanyl at 1 mcg/kg/h, propofol at 50 mcg/kg/m, norepinephrine at 0.005 mcg/kg/m. Receiving Plaquenil, zinc, Solu-Medrol, and ceftriaxone. Markers including ferritin is 460, LDH is a 22, C-reactive protein is 170 liver enzymes are normal. Patient remains on enteral feeding. Remains on Xarelto 4 history of chronic atrial fibrillation. Renal functioning is normal. Electrodes lites are normal. IV fluid rate remained the same. Reevaluated today on 12/04 Reevaluated today on 12/06/19, remains intubated, mechanically ventilated. Her v entilator settings are assist control rate of 20 tidal volume of 350 FiO2 is 40%, PEEP is 8. Patient is on propofol at 20 mcg/kg/m, she is also on fentanyl at a very low dose, based on the ABG, no vent changes were made. Chest x-ray continues to show basilar infiltrates. Not much of a change in her overall chest x-ray appearance. ABG today showed a pO2 of 86 pCO2 of 38 pH of 7.49. CBC is relatively normal. Basic metabolic profile is normal. Inflammatory markers are improved ferritin is 4:15, C-reactive protein is 73 LDH is 821. Patient remains on enteral feeding. And tolerating that quite well. Patient was reevaluated today on 12/07/19, remains in the ICU, on mechanical ventilation, her sedatives have been on hold since yesterday, however at night she was given Dilaudid and given Ativan for mild anxiety on mechanical ventilation. Patient seems to be awake today, following simple instructions. Wiggling her toes, moving her arms, and seems to comprehend what's going on. Her ventilator settings are assist control rate of 20 tidal volume of 350 FiO2 of 40%, and PEEP was 8. Patient remains on clevidipine 3 mg/h, and her IV fluid is 0.9 normal saline at 40 mL per hour. After evaluating the patient, and evaluating her chest x-ray, which is basically unchanged compared to yesterday, continues to have some perihilar and basilar infiltrates. No change compared to yesterday. I recommended patient to be placed on a viral of pressure support of 8 and CPAP of 5, and if tolerated the patient could be weaned and extubated. This was done, follow-up ABG after 1 hour of pressure support and CPAP showed a pO2 of 98 pCO2 of 33 and pH of 7.51. Hence I recommended stopping all her narcotics and sedatives, and recommended extubating the patient to a nasal cannula. Reevaluated today on 12/08/19, patient remains in the ICU, she was extubated, and she tolerated the extubation well. She is now on 5 L nasal cannula, O2 saturation is 100%. Remains on clevidipine for elevated blood pressure at 6 mg per hour. Hence we'll switch the patient to oral medications for elevated blood pressure. She has been in sinus tachycardia rate of 105. Patient feels generally weak, however she is not in any distress. CBC is relatively normal d- dimer is elevated at 7.69 electrolytes and renal profile are normal inflammatory markers remain high including ferritin of 341 LDH of 1398 and C-reactive protein is 33.5. Chest x-ray continues to show by basilar infiltrates basically about the same. Compared to yesterday. Reevaluated today on 12/09/19, patient has tolerated extubation for the 2 days, she is now on 3 L nasal cannula, and her O2 saturation is 96%. Chest x-ray continues to show slight improvement with minimal infiltrate in the left lower lobe. Labs including CBC and basic metabolic profile renal profile are normal. Patient is comfortable, in no distress. Hence I plan to transfer the patient out of the ICU to a regular medical floor. Her blood pressure was addressed by placing the patient on oral medications, and she is now off clevidipine. Objective - Vital Signs Vital signs: Vital Signs Temp 97.9 F 12/09/19 08:00 Pulse 75 12/09/19 11:00 Resp 17 12/09/19 11:00 BP 112/56 12/09/19 11:00 Pulse Ox 96 12/09/19 11:00 Intake & Output 12/08/19 12/09/19 12/09/19 18:59 06:59 18:59 Intake Total 602.0 712.167 276 Output Total 1235 1040 195 Balance -633.0 -327.833 81 Weight 76.4 kg 74.5 kg Intake: IV 552 552 156 Normal Saline Pressure 72 72 46 Bag Sodium Chloride 0.9% 1, 480 480 110 000 ml @ 20 mls/hr IV . Q24H [facility] Rx#:[id number] Intake, IV Titration 50.0 60.167 Amount Clevidipine Butyrate 25 50.0 60.167 mg In Empty Bag 1 bag @ 1 MG/HR 2 mls/hr IV .Q24H [facility] Rx#:[id number] Oral 100 120 Output: Urine 1235 1040 195 Other: Voiding Method Indwelling Catheter Indwelling Catheter Indwelling Catheter ABP, PAP, CO, CI - Last Documented Arterial Blood Pressure 149/58 - Exam Physical Exam revealed 74-year-old female in no distress. On 3 L nasal cannula HEENT:: PERRLA, EOMI, no icterus, Head: Atraumatic normocephalic. Patient seems to have loose frontal bottom teeth. [No neck masses.] [No thyromegaly.] [No JVD.] Chest: [Crackles at the bases, no rhonchi and no wheezes. Cardiac Exam: Irregular irregular rhythm. [Normal S1 and S2, no S3 gallop, no murmur.] Abdomen: [Soft, nontender, no megaly, no rebound, no guarding, normal bowel sounds.] Extremities: [No clubbing, no edema, no cyanosis.] Neurological Exam: Alert and oriented 3, no gross focal neurologic deficits. Psychiatric: Pleasant mood, blunt affect, normal mental status. Skin: No rashes. - Labs CBC & Chem 7: 12/09/19 04:35 12/09/19 04:35 Labs: Abnormal Lab Results - Last 24 Hours (Table) 12/08/19 12/09/19 12/09/19 Range/Units 16:47 04:35 04:35 RBC 3.77 L (3.80-5.40) m/uL Hgb 10.9 L (11.4-16.0) gm/dL Lymphocytes # 0.5 L (1.0-4.8) k/uL Chloride 110 H (98-107) mmol/L Glucose 102 H (74-99) mg/dL POC Glucose (mg/dL) 100 H (75-99) mg/dL AST 172 H (14-36) U/L ALT 238 H (4-34) U/L Total Protein 5.7 L (6.3-8.2) g/dL Albumin 2.6 L (3.5-5.0) g/dL Assessment and Plan Assessment: Impression: Acute hypoxic respiratory failure secondary to pneumonia, significantly improved and the patient was extubated on 12/07/19 Acute covid 19 pneumonitis., ARDS secondary to pneumonitis as above. History of COPD History of hypertension Chronic atrial fibrillation, on Xarelto Septic shock upon presentation, resolved. Acute gram-negative urinary tract infection with Klebsiella pneumoniae Loose bottom front teeth, could be related to intubation or patient has been biting hard on the endotracheal tube when she was intubated. May consider dental evaluation down the line. Recommendation: Tolerated extubation well over the last 48 hours. Continue the course of treatment for her pneumonitis. Continue Rocephin for UTI. Switched to a regular diet. Continue GI and DVT prophylaxis. Hospitalist to address the issue of her loose teeth We'll transfer patient to a regular medical floor with droplet isolation. We'll continue to follow. Time with Patient: Less than 30
[2019-12-09] MEDS: SODIUM CHLORIDE 0.9% 1,000 ML IV SCH (15:58)
[2019-12-09 17:10] LABS: Glucose,Whole Blood 91 mg/dL (75-99)
--- NOTE | 2019-12-09 17:23 | P.PN ---
Subjective Progress Note Date: 12/09/19 Principal diagnosis: COVID pneumonia Patient is a 74-year-old -[place] female with a past medical history of hypertension, mild COPD, and paroxysmal atrial fibrillation on Xarelto who presented to [facility] emergency department with complaints of coughing, headache, and shortness of breath. She was transferred here due to the covert relief effort. Initial evaluation consistent with atypical or viral pneumonia with probable covert 19. She had testing done at [facility] which was positive for COVID-19. She was started on hydroxychloroquine, zinc, and as needed Tylen ol. Pulmonary was consulted. Her O2 requirement continued to increase. Chest x-ray consistent with pneumonia/ARDS picture. We had a long discussion she was okay with elective intubation. She was intubated on the afternoon of 11/30/2019. She did require propofol, fentanyl, norepinephrine, and antibiotics. She had not made significant progress by 12/03/2019 and continued to spike fevers. She was s tarted on Solumedrol on 12/04/2019. Patient was seen and examined. Patient was transferred out of ICU today. She is on room air saturating 90s. Clevidipine drip has been discontinued and blood pressure managed with oral medication. Patient is much more verbal today and is communicating freely. She denies any specific symptoms. No pain. Objective - Vital Signs Vital signs: Vital Signs Temp 98.3 F 12/09/19 16:11 Pulse 76 12/09/19 16:11 Resp 18 12/09/19 16:11 BP 123/75 12/09/19 16:11 Pulse Ox 99 12/09/19 16:11 Intake & Output 12/08/19 12/09/19 12/09/19 18:59 06:59 18:59 Intake Total 602.0 712.167 736 Output Total 1235 1040 365 Balance -633.0 -327.833 371 Weight 76.4 kg 74.5 kg Intake: IV 552 552 216 Normal Saline Pressure 72 72 46 Bag Sodium Chloride 0.9% 1, 480 480 170 000 ml @ 20 mls/hr IV . Q24H [facility] Rx#:[id number] Intake, IV Titration 50.0 60.167 Amount Clevidipine Butyrate 25 50.0 60.167 mg In Empty Bag 1 bag @ 1 MG/HR 2 mls/hr IV .Q24H [facility] Rx#:[id number] Oral 100 520 Output: Urine 1235 1040 365 Other: Voiding Method Indwelling Catheter Indwelling Catheter Indwelling Catheter # Voids 0 # Bowel Movements 1 ABP, PAP, CO, CI - Last Documented Arterial Blood Pressure 149/58 - Exam General: [non toxic], [no distress, on room air speaking in full sentences], [appears at stated age] Derm: [warm], [dry] Head: [atraumatic], [normocephalic], [symmetric], [poor dentition] Eyes: [EOMI], [no lid lag], [anicteric sclera] Mouth: [no lip lesion], [mucus membranes moist] Cardiovascular: [S1S2 reg], [no murmur], [positive DP pulse bilateral], Lungs: [Coarse breath sounds bilateral], [no rhonchi, no rales] , [no accessory muscle use] Abdominal: [soft], [ nontender to palpation], [no guarding], [no appreciable organomegaly] Ext: [no gross muscle atrophy], [no edema], [no contractures] Neuro: [No FND] Psych: [Blunt affect, whispering, not communicating much] - Labs CBC & Chem 7: 12/09/19 04:35 12/09/19 04:35 Labs: Abnormal Lab Results - Last 24 Hours (Table) 12/09/19 12/09/19 Range/Units 04:35 04:35 RBC 3.77 L (3.80-5.40) m/uL Hgb 10.9 L (11.4-16.0) gm/dL Lymphocytes # 0.5 L (1.0-4.8) k/uL Chloride 110 H (98-107) mmol/L Glucose 102 H (74-99) mg/dL AST 172 H (14-36) U/L ALT 238 H (4-34) U/L Total Protein 5.7 L (6.3-8.2) g/dL Albumin 2.6 L (3.5-5.0) g/dL Assessment and Plan Assessment: Bilateral pneumonia secondary to COVID 19 with ARDS and acute hypoxic respiratory failure requiring intubation -Last dose of Plaquenil tonight, steroids initiated by pulmonary -Symbicort, albuterol inhaler -Patient extubated 12/07/2019. -Trend d-dimer, LDH, CRP, CPK -Follow chest x-ray until clear -Pulmonary critical care recommendations appreciated -Follow QT interval -Gentle IV fluids Klebsiella UTI - Completed course of Rocephin for 7 days, will discontinue Elevated d-dimer - Possible microthrombi due to above infection. Patient is on Xarelto which will be continued due to history of chronic A. fib. Hypothyroidism -Synthroid Hypertension -Patient now off the clevidipine drip, Amlodipine and Metoprolol continued and clonidine added along with hydralazine IV as needed. Paroxysmal atrial fibrillation -Metoprolol by mouth for rate control -Continue with Xarelto COPD without acute exacerbation -Bronchodilators Dyslipidemia -Statin therapy DVT prophylaxis: Xarelto Discussed with: Patient Anticipated discharge: undetermined Anticipated discharge place: undetermined A total of 35 minutes was spent on the care of this complex patient more than 50% of the time was spent in counseling and care coordination.
[2019-12-09] MEDS: ALBUTEROL HFA INHALER INHALATION PRN (20:03)
[2019-12-09 20:46] LABS: Glucose,Whole Blood 59 mg/dL (75-99)
[2019-12-09] MEDS: cloNIDine HCL 0.2 MG TAB PO SCH (20:51)
[2019-12-09 21:00] LABS: Glucose,Whole Blood 94 mg/dL (75-99)
[2019-12-09] MEDS ORDERED: HYDROXYCHLOROQUINE SULFATE 200 MG TAB PO SCH (21:00)
--- NOTE | 2019-12-10 00:07 | PN ---
PROGRESS NOTE DATE OF SERVICE: 12/09/2019 REASON FOR FOLLOWUP: Acute COVID-19 infection. INTERVAL HISTORY: The patient is afebrile. She has been breathing comfortably. She has been transferred out of ICU. Denies having any chest pain or shortness of breath. Occasional cough. No abdominal pain or diarrhea. PHYSICAL EXAMINATION: Blood pressure 122/74 with a pulse of 83, temperature 98.4. She is 97% on 2 L nasal cannula. General description is an elderly female lying in bed in no distress. RESPIRATORY SYSTEM: Unlabored breathing with decreased intensity of breath sounds. No wheeze. HEART: S1, S2. Regular rate and rhythm. ABDOMEN: Soft. No tenderness. LABS: Hemoglobin is 10.9, white count 7.1, BUN of 17, creatinine 0.61. DIAGNOSTIC IMPRESSION AND PLAN: 1. Patient with acute COVID-19 infection. The patient has completed her Plaquenil therapy, currently on zinc; to continue along with respiratory support, Solu- Medrol, oxygen, incentive spirometry. 2. Patient with Klebsiella urinary tract infection; has completed her Rocephin therapy. Continue supportive care. MMODL / IJN: [id number] /
[2019-12-10 02:29] LABS: Glucose,Whole Blood 78 mg/dL (75-99)
[2019-12-10] MEDS: LEVOTHYROXINE 100 MCG TAB PO SCH (06:02)
[2019-12-10 07:01] LABS: Glucose,Whole Blood 70 mg/dL (75-99)
[2019-12-10] MEDS: INSULIN ASPART (NovoLOG) 100 UNIT/ML VIAL SQ SCH ×4 (07:06→20:58)
--- NOTE | 2019-12-10 07:52 | XR ---
EXAMINATION TYPE: XR chest 1V portable DATE OF EXAM: 12/10/2019 HISTORY: Follow chest xray until clear orders. REFERENCE: Previous study dated 12/09/2019. FINDINGS: The patient's left subclavian catheter is been removed. There is bibasilar airspace disease. There are small, bilateral effusions. The heart is mildly promin ent. IMPRESSION: 1. MILD CARDIOMEGALY. 2. BIBASILAR INFILTRATES. 3. BILATERAL EFFUSIONS.
[2019-12-10] MEDS: ZINC SULFATE 220 MG CAP PO SCH (08:02)
[2019-12-10] MEDS: ASPIRIN 81 MG PO SCH (08:02)
[2019-12-10] MEDS: amLODIPine 5 MG TAB PO SCH ×2 (08:02→21:01)
[2019-12-10] MEDS: cloNIDine HCL 0.2 MG TAB PO SCH ×2 (08:02→21:01)
[2019-12-10] MEDS: PANTOPRAZOLE 40 MG TABLET PO SCH (08:02)
[2019-12-10] MEDS: METOPROLOL TARTRATE 25 MG TAB PO SCH ×2 (08:02→21:01)
[2019-12-10] MEDS: RIVAROXABAN 20 MG TAB PO SCH (08:03)
[2019-12-10] MEDS: methylPREDNISolone 4 MG TAB TAPER PO SCH (08:03)
[2019-12-10] MEDS: ALBUTEROL HFA INHALER INHALATION PRN ×2 (08:09→11:23)
[2019-12-10 09:21] LABS: Basophils % (A) 0 %; Eosinophils # (A) 0.1 k/uL (0-0.7); Eosinophils % (A) 2 %; HCT 38.6 % (34.0-46.0); HGB 12.3 gm/dL (11.4-16.0); Hypochromasia Slight; Lymphocytes % (A) 19 %; MCH 29.3 pg (25.0-35.0); MCHC 31.8 g/dL (31.0-37.0); MCV 92.2 fL (80.0-100.0); Mean Platelet Volume 9.2; Monocytes # (A) 0.6 k/uL (0-1.0); Monocytes % (A) 11 %; Neutrophils # (A) 3.5 k/uL (1.3-7.7); Neutrophils % (A) 68 %; Platelet Count 249 k/uL (150-450); RBC 4.19 m/uL (3.80-5.40); RDW 13.7 % (11.5-15.5); WBC 5.1 k/uL (3.8-10.6)
[2019-12-10 09:31] LABS: African American GFR (CKD) >90 (>60 ml/min/1.73 sqM); Anion Gap 6 mmol/L; Blood Urea Nitrogen 23 mg/dL (7-17); C Reactive Protein 19.2 mg/L (<10.0); Calcium 9.2 mg/dL (8.4-10.2); Carbon Dioxide 23 mmol/L (22-30); Chloride 112 mmol/L (98-107); Creatine Kinase 156 U/L (30-135); Glucose 71 mg/dL (74-99); Non-African American GFR(CKD) 89 (>60 ml/min/1.73 sqM); Sodium 141 mmol/L (137-145)
[2019-12-10 09:41] LABS: LDH 1221 U/L (313-618); Potassium 4.1 mmol/L (3.5-5.1)
--- NOTE | 2019-12-10 11:32 | P.PN ---
Subjective Progress Note Date: 12/10/19 Principal diagnosis: Acute covid 19 pneumonia and acute hypoxic respiratory failure, secondary to pneumonia and ARDS This is a 74-year-old -[place] female patient who lives in [place]. The patient has history of atrial fibrillation and she has been maintained on Xarelto on long-term basis. The patient felt febrile and had increased cough approximately a week ago. She end up going to [facility] where she was tested and she was confirmed to have positive: 19 infection. The patient was discharged home. However, as the patient became more short of b reath and her cough that is worse, the patient presented to ED department at [facility] where she was evaluated and she was placed on high flow oxygen because of her ongoing hypoxemia. The patient's pulse ox apparently was in the low 80s and she was given supplemental oxygen including 100% nonrebreather facemask. The patient got transferred to us for further monitoring and treatment. The patient's white cell count was at 4.4 at time of admission and the patient had a lymphopenia with a lymphocyte level of 0.7. Hemoglobin was at 13.3. Platelet count was 222, LFTs are unremarkable, the troponin was negative, CRP was 122, LDH was 548, ferritin level was 723, CPK was 156 and the lactic acid level was 1.6. Chest x-ray showed bilateral pulmonary infiltrates interstitial changes bilaterally right more than left more so in the lung bases bilaterally. Clinically, despite hypoxemia, the patient seems to be quite stable and she is struggling with her breathing. She is not using some ecchymosis of breathing. She is currently on high flow oxygen at 10 L in addition to 100% on a beta facemasks and pulse ox is around 87-90%. No nausea. No vomiting. No altered mentation. No chest pain. Her cardiac rhythm is still in atrial fibrillation. The patient was started on Plaquenil. She is an ex- smoker. She has history of COPD and she has been maintained on Stiolto on outpatient basis. On 12/01/2019 and seeing this patient for a follow-up. As mentioned earlier the patient was Hospital as for an acute Covid 19 pneumonia. The patient was on 100% nonrebreather facemask. Yesterday evening, the patient's condition decompensated. As such, the patient had to be intubated and placed on a mechanical ventilator. This was done by [employer] and intubation process was successful. This morning the patient is being seen for a follow-up. The patient currently is on assist-control mode rate of 20 with tidal volume of 350 and FiO2 of 40% with a PEEP of 15. The patient is on propofol which is running at 75 g per KG pigmented and fentanyl drip is running in 1 g per KG per hour. Levothroid has also be used at a dose of 0.04 g per KG pigmented for hemodynamic support. The patient will be started on enteral feeding for nutrition support. Do not lung cancer and a triple-lumen cath was also inserted. Note that the patient is afebrile today. The patient had a T-max of 99.9. The LDH still elevated at 1140. The d-dimer is at 1.19. Blood gases from today shows a pH of 7.36 with a pCO2 of 42 and pO2 of 82. Chest x-ray shows interval insertion of the ET tube and there is bilateral basilar reticular nodular infiltrates and some increased infiltration of the upper lobes bilaterally. The patient's net fluid balance is +1.8 L over the past 24 hours. She'll be started on enteral feeding for nutritional support. She is already on a combination of zinc sulfate and Plaquenil. She was also maintained on anticoagulation with Xarelto regarding her chronic atrial fibrillation. On 12/02/2019, the patient remains intubated on a mechanical ventilator. This morning, the patient is sedated with propofol of 75 mcg/kg per minute and fentanyl at all micrograms per kilogram per hour. The patient remains intubated on mechanical ventilator. The patient is an assist-control mode rate of 20 with tidal volume of 350 and FiO2 of 50% with a PEEP of 15. The patient's chest x- ray shows some limited infiltration of the lung bases along with some scattered bibasilar groundglass and reticulocyte another pulmonary infiltrates. The patient is producing adequate amount of urine output. Norepinephrine infusion is running at a low dose of 0.02 g per KG per minute. The patient developed a lower blood pressure of this pressors and the urine output are also drop. The neck fluid balance is positive troponin 9 L over the past 24 hours. No documented fever. The blood gases from today showed a pH of 7.38 with a pCO2 of 41 and pO2 of 132. The patient's LDH today's 1087 and the 50s up to 578 and the CRP level is at 300. LFTs remain nonelevated with an AST of 51 ALT of 17. Renal function is stable with a creatinine of 0.7. No significant leukocytosis. The patient has underlying lymphopenia. Enteral feeding will be started on her for nutritional support. Echocardiogram is to follow. On 12/03/2019, I'm seeing this patient for a follow-up. Clinically signific antly since her the same compared to yesterday. She is sedated on propofol at the rate of 75 mcg/kg per minute and the patient is also on fentanyl at 1 mcg/kg/h. She is requiring a lot of stresses in her urine output is very much dependent that pressor. She is on norepinephrine infusion at the rate of 0.03 units per kilogram per minute. And the patient's is on a normal saline infusion at the rate of 10 mL an hour. Her net fluid balance is +0.9 L over the past 24 hours. The patient's is an assist-control mode at the rate of 20 with tidal volume of 350 and FiO2 of 40% with a PEEP of 12. Chest x-ray findings are essentially the same and unchanged compared to yesterday. The blood gases from today showed a pH of 7.44 with a pCO2 of 40 and pO2 of 67 and this was done and FiO2 of 40%. Peak airway pressure is 31. Plateau airway pressure is 27. The CRP level is at 387 which is higher compared to yesterday. The LDH level is 925 which is lower compared to yesterday. Creatinine is at 0.5. TPN is at 16. The patient is afebrile for now. The patient remains on a combination of Plaquenil and zinc sulfate. The patient is also on IV Rocephin as an empiric antibiotic coverage. No other significant events otherwise for now. She is tolerating her tube feeds which is running at the rate of 27 mL an hour. On 12/04/2019 the patient is being seen for a follow-up. She is a case of Covid 19 pneumonia/respiratory failure requiring intubation mechanical ventilation. This morning, the patient remains sedated with propofol running at 50 g and fentanyl running at 1 mcg/kg/h. Chest x-ray findings show some improved aeration of the left lung base. ET tube is in a good location. The patient has a left subclavian triple-lumen catheter in place. The patient is an assist- control mode at the rate of 20 with a tidal volume of 350 and FiO2 of 40% with a PEEP of 12. The PF ratio is 154. The peak airway pressure is 29. Static pressure is 26. The LDH level is at 880, CPK is 251, CRP is a 61, and the patient has elevated d-dimer of 4.97. Noted the patient is or the on anticoag ulation with Xarelto which was given to her for her chronic atrial fibrillation and this was continued. She is tolerating her enteral feeding for support. She is in a positive fluid balance of 1 L. She is afebrile. The patient has no leukocytosis. Function is stable with a creatinine of 0.5 with a BUN of 21. Electrodes are all within normal limits. Enterofeeding is being provided at the rate of 27 mL an hour. She remains on Plaquenil. IV Solu-Medrol was added. She is receiving IV Solu Medrol 4 mg every 12 hours. She is on empiric antibiotic coverage with Rocephin. Pressor medications are unchanged. She is on normal saline at the rate of 20 mL an hour. Reevaluated today on 12/05/19, patient remains intubated and mechanically ventilated, her ventilator settings are assist control rate of 20 tidal volume of 350 FiO2 40%, and the PEEP was brought to 8 from 11. ABG showed a pO2 of 79 pCO2 of 42 pH of 7.45. Her peak airway pressure is 30 left toe pressure is 25. Chest x-ray continues to show by basilar infiltrates. Patient remains on fentanyl at 1 mcg/kg/h, propofol at 50 mcg/kg/m, norepinephrine at 0.005 mcg/kg/m. Receiving Plaquenil, zinc, Solu-Medrol, and ceftriaxone. Markers including ferritin is 460, LDH is a 22, C-reactive protein is 170 liver enzymes are normal. Patient remains on enteral feeding. Remains on Xarelto 4 history of chronic atrial fibrillation. Renal functioning is normal. Electrodes lites are normal. IV fluid rate remained the same. Reevaluated today on 12/04 Reevaluated today on 12/06/19, remains intubated, mechanically ventilated. Her v entilator settings are assist control rate of 20 tidal volume of 350 FiO2 is 40%, PEEP is 8. Patient is on propofol at 20 mcg/kg/m, she is also on fentanyl at a very low dose, based on the ABG, no vent changes were made. Chest x-ray continues to show basilar infiltrates. Not much of a change in her overall chest x-ray appearance. ABG today showed a pO2 of 86 pCO2 of 38 pH of 7.49. CBC is relatively normal. Basic metabolic profile is normal. Inflammatory markers are improved ferritin is 4:15, C-reactive protein is 73 LDH is 821. Patient remains on enteral feeding. And tolerating that quite well. Patient was reevaluated today on 12/07/19, remains in the ICU, on mechanical ventilation, her sedatives have been on hold since yesterday, however at night she was given Dilaudid and given Ativan for mild anxiety on mechanical ventilation. Patient seems to be awake today, following simple instructions. Wiggling her toes, moving her arms, and seems to comprehend what's going on. Her ventilator settings are assist control rate of 20 tidal volume of 350 FiO2 of 40%, and PEEP was 8. Patient remains on clevidipine 3 mg/h, and her IV fluid is 0.9 normal saline at 40 mL per hour. After evaluating the patient, and evaluating her chest x-ray, which is basically unchanged compared to yesterday, continues to have some perihilar and basilar infiltrates. No change compared to yesterday. I recommended patient to be placed on a viral of pressure support of 8 and CPAP of 5, and if tolerated the patient could be weaned and extubated. This was done, follow-up ABG after 1 hour of pressure support and CPAP showed a pO2 of 98 pCO2 of 33 and pH of 7.51. Hence I recommended stopping all her narcotics and sedatives, and recommended extubating the patient to a nasal cannula. Reevaluated today on 12/08/19, patient remains in the ICU, she was extubated, and she tolerated the extubation well. She is now on 5 L nasal cannula, O2 saturation is 100%. Remains on clevidipine for elevated blood pressure at 6 mg per hour. Hence we'll switch the patient to oral medications for elevated blood pressure. She has been in sinus tachycardia rate of 105. Patient feels generally weak, however she is not in any distress. CBC is relatively normal d- dimer is elevated at 7.69 electrolytes and renal profile are normal inflammatory markers remain high including ferritin of 341 LDH of 1398 and C-reactive protein is 33.5. Chest x-ray continues to show by basilar infiltrates basically about the same. Compared to yesterday. Reevaluated today on 12/09/19, patient has tolerated extubation for the 2 days, she is now on 3 L nasal cannula, and her O2 saturation is 96%. Chest x-ray continues to show slight improvement with minimal infiltrate in the left lower lobe. Labs including CBC and basic metabolic profile renal profile are normal. Patient is comfortable, in no distress. Hence I plan to transfer the patient out of the ICU to a regular medical floor. Her blood pressure was addressed by placing the patient on oral medications, and she is now off clevidipine. The patient is seen today 12/10/2019 in follow-up on the regular medical floor. She is currently awake and alert in no acute distress. Resting fairly comfortably in bed. She is maintaining O2 saturation in the 90s on 2 L/m per nasal cannula. She's afebrile. Hemodynamically stable. Sputum culture reveals no growth. White count 5.1. Hemoglobin 12.3. D-dimer 6.00. Sodium 141. Potassium 4.1. Creatinine 0.62. LDH 1221. CK 156. C-reactive protein 19.2. She is anticoagulated with Xarelto. She's completed her course of hydroxychloroquine. Remains on a Medrol Dosepak. Remains on zinc. Objective - Vital Signs Vital signs: Vital Signs Temp 98.3 F 12/10/19 07:00 Pulse 66 12/10/19 08:05 Resp 19 12/10/19 08:05 BP 120/73 12/10/19 07:00 Pulse Ox 93 L 12/10/19 07:00 Intake & Output 12/09/19 12/10/19 12/10/19 18:59 06:59 18:59 Intake Total 736 Output Total 365 600 Balance 371 -600 Weight 71.5 kg Intake: IV 216 Normal Saline Pressure 46 Bag Sodium Chloride 0.9% 1, 170 000 ml @ 20 mls/hr IV . Q24H [facility] Rx#:[id number] Oral 520 Output: Urine 365 600 Other: Voiding Method Indwelling Catheter Indwelling Catheter Indwelling Catheter # Voids 0 # Bowel Movements 1 ABP, PAP, CO, CI - Last Documented Arterial Blood Pressure 149/58 - Exam GENERAL EXAM: Alert, active, pleasant 74-year-old female patient, on 2 L nasal cannula, comfortable in no apparent distress. HEAD: Normocephalic. EYES: Normal reaction of pupils, equal size. NOSE: Clear with pink turbinates. THROAT: Poor dentition. No erythema or exudates. NECK: No masses, no JVD. CHEST: No chest wall deformity. LUNGS: Equal air entry with basilar crackles. CVS: S1 and S2 normal with no audible murmur, irregular rhythm. ABDOMEN: No hepatosplenomegaly, normal bowel sounds, no guarding or rigidity. SPINE: No scoliosis or deformity SKIN: No rashes CENTRAL NERVOUS SYSTEM: No focal deficits, tone is normal in all 4 extremities. EXTREMITIES: There is no peripheral edema. No clubbing, no cyanosis. Peripheral pulses are intact. - Labs CBC & Chem 7: 12/10/19 08:46 12/10/19 08:46 Labs: Abnormal Lab Results - Last 24 Hours (Table) 12/09/19 12/10/19 12/10/19 Range/Units 20:45 06:59 08:46 D-Dimer 6.00 H (<0.60) mg/L FEU Chloride (98-107) mmol/L BUN (7-17) mg/dL Glucose (74-99) mg/dL POC Glucose (mg/dL) 59 L 70 L (75-99) mg/dL Lactate Dehydrogenase (313-618) U/L Creatine Kinase (30-135) U/L C-Reactive Protein (<10.0) mg/L 12/10/19 Range/Units 08:46 D-Dimer (<0.60) mg/L FEU Chloride 112 H (98-107) mmol/L BUN 23 H (7-17) mg/dL Glucose 71 L (74-99) mg/dL POC Glucose (mg/dL) (75-99) mg/dL Lactate Dehydrogenase 1221 H (313-618) U/L Creatine Kinase 156 H (30-135) U/L C-Reactive Protein 19.2 H (<10.0) mg/L Assessment and Plan Assessment: Impression: Acute hypoxic respiratory failure secondary to pneumonia, significantly improved and the patient was extubated on 4/8/20 Acute covid 19 pneumonitis., ARDS secondary to pneumonitis as above. History of COPD History of hypertension Chronic atrial fibrillation, on Xarelto Septic shock upon presentation, resolved. Acute gram-negative urinary tract infection with Klebsiella pneumoniae Loose bottom front teeth, could be related to intubation or patient has been biting hard on the endotracheal tube when she was intubated. May consider dental evaluation down the line. Plan: The patient was seen and evaluated by Dr. Hodgson She is improved from the pulmonary standpoint Continue current treatment plan Discharge planning in place We'll continue to follow I, the cosigning physician, performed a history & physical examination of the patient. Lungs sounds with basilar crackles Maintaining good O2 saturations in the 90s on 2 L/m per nasal cannula. I discussed the assessment and plan of care with my nurse practitioner, Sena Patel. I attest to the above note as dictated by her.
[2019-12-10 11:44] LABS: Glucose,Whole Blood 93 mg/dL (75-99)
--- NOTE | 2019-12-10 16:03 | P.PN ---
Subjective Progress Note Date: 12/10/19 Principal diagnosis: COVID pneumonia Patient is a 74-year-old -Nigerien female with a past medical history of hypertension, mild COPD, and paroxysmal atrial fibrillation on Xarelto who presented to [place] emergency department with complaints of coughing, headache, and shortness of breath. She was transferred here due to the covert relief effort. Initial evaluation consistent with atypical or viral pneumonia with probable covert 19. She had testing done at [place] which was positive for COVID-19. She was started on hydroxychloroquine, zinc, and as needed Tylen ol. Pulmonary was consulted. Her O2 requirement continued to increase. Chest x-ray consistent with pneumonia/ARDS picture. We had a long discussion she was okay with elective intubation. She was intubated on the afternoon of 11/30/2019. She did require propofol, fentanyl, norepinephrine, and antibiotics. She had not made significant progress by 12/03/2019 and continued to spike fevers. She was s tarted on Solumedrol on 12/04/2019. She was continued on Xarelto for elevated d- dimer along with her history of chronic atrial fibrillation. Her sedation was weaned from December 05 to December 06. She did require clevidipine drip for elevated blood pressures. She was extubated on 12/08/2019. Her respiratory status continued to improve and her blood pressure was maintained on oral antihypertensive medication. She was transferred out of ICU on 12/09/2019. Patient was seen and examined. She is currently on 2L nasal cannula saturating mid-90s. She has no complaints. She denies any chest pain, shortness of breath or palpitations. Objective - Vital Signs Vital signs: Vital Signs Temp 98.3 F 12/10/19 07:00 Pulse 66 12/10/19 08:05 Resp 19 12/10/19 08:05 BP 120/73 12/10/19 07:00 Pulse Ox 93 L 12/10/19 07:00 Intake & Output 12/09/19 12/10/19 12/10/19 18:59 06:59 18:59 Intake Total 736 Output Total 365 600 Balance 371 -600 Weight 71.5 kg Intake: IV 216 Normal Saline Pressure 46 Bag Sodium Chloride 0.9% 1, 170 000 ml @ 20 mls/hr IV . Q24H [facility] Rx#:[id number] Oral 520 Output: Urine 365 600 Other: Voiding Method Indwelling Catheter Indwelling Catheter Indwelling Catheter # Voids 0 # Bowel Movements 1 ABP, PAP, CO, CI - Last Documented Arterial Blood Pressure 149/58 - Exam General: [non toxic], [no distress, on room air speaking in full sentences], [appears at stated age] Derm: [warm], [dry] Head: [atraumatic], [normocephalic], [symmetric], [poor dentition] Eyes: [EOMI], [no lid lag], [anicteric sclera] Mouth: [no lip lesion], [mucus membranes moist] Cardiovascular: [S1S2 reg], [no murmur], [positive DP pulse bilateral], Lungs: [Coarse breath sounds bilateral], [no rhonchi, no rales] , [no accessory muscle use] Abdominal: [soft], [ nontender to palpation], [no guarding], [no appreciable organomegaly] Ext: [no gross muscle atrophy], [no edema], [no contractures] Neuro: [No FND] Psych: [Blunt affect, whispering, not communicating much] - Labs CBC & Chem 7: 12/10/19 08:46 12/10/19 08:46 Labs: Abnormal Lab Results - Last 24 Hours (Table) 12/09/19 12/10/19 12/10/19 Range/Units 20:45 06:59 08:46 D-Dimer 6.00 H (<0.60) mg/L FEU Chloride (98-107) mmol/L BUN (7-17) mg/dL Glucose (74-99) mg/dL POC Glucose (mg/dL) 59 L 70 L (75-99) mg/dL Lactate Dehydrogenase (313-618) U/L Creatine Kinase (30-135) U/L C-Reactive Protein (<10.0) mg/L 12/10/19 Range/Units 08:46 D-Dimer (<0.60) mg/L FEU Chloride 112 H (98-107) mmol/L BUN 23 H (7-17) mg/dL Glucose 71 L (74-99) mg/dL POC Glucose (mg/dL) (75-99) mg/dL Lactate Dehydrogenase 1221 H (313-618) U/L Creatine Kinase 156 H (30-135) U/L C-Reactive Protein 19.2 H (<10.0) mg/L Assessment and Plan Assessment: Bilateral pneumonia secondary to COVID 19 with ARDS and acute hypoxic respiratory failure requiring intubation -Completed course of hydroxychloroquine, steroids initiated by pulmonary -Symbicort, albuterol inhaler -Patient extubated 12/07/2019. -Trend d-dimer, LDH, CRP, CPK -Follow chest x-ray until clear -Pulmonary critical care recommendations appreciated -Follow QT interval -Gentle IV fluids Klebsiella UTI - Completed course of Rocephin for 7 days, will discontinue Elevated d-dimer - Possible microthrombi due to above infection. Patient is on Xarelto which will be continued due to history of chronic A. fib. Hypothyroidism -Synthroid Hypertension -Patient now off the clevidipine drip, Amlodipine and Metoprolol continued and clonidine added along with hydralazine IV as needed. Paroxysmal atrial fibrillation -Metoprolol by mouth for rate control -Continue with Xarelto COPD without acute exacerbation -Bronchodilators Dyslipidemia -Statin therapy DVT prophylaxis: Xarelto Discussed with: Patient Anticipated discharge: undetermined Anticipated discharge place: undetermined A total of 35 minutes was spent on the care of this complex patient more than 50% of the time was spent in counseling and care coordination.
[2019-12-10 16:24] LABS: Glucose,Whole Blood 106 mg/dL (75-99)
[2019-12-10 20:59] LABS: Glucose,Whole Blood 122 mg/dL (75-99)
--- NOTE | 2019-12-11 00:02 | PN ---
PROGRESS NOTE DATE OF SERVICE: 12/10/2019 REASON FOR FOLLOWUP: Acute COVID-19 pneumonia. INTERVAL HISTORY: The patient is currently afebrile. The patient has been breathing comfortably. The patient denies having any chest pain. Occasional cough. No nausea, vomiting. No abdominal pain or diarrhea. PHYSICAL EXAMINATION: On examination, her blood pressure is 105/64 with a pulse of 72, temperature 98.4. She is 99% on 2 L nasal cannula. General description is an elderly female lying in bed in no distress. Respiratory system: Unlabored breathing. Clear to auscultation anteriorly. Heart S1, S2. Regular rate and rhythm. Abdomen soft, no tenderness. LABS: Hemoglobin is 12.8, white count 5.1. BUN of 23, creatinine 0.62. DIAGNOSTIC IMPRESSION AND PLAN: Patient with acute COVID-19 pneumonia in this patient who seemed to have shown overall clinical improvement. She has been extubated. Patient is currently on zinc and along with Medrol Dosepak to continue and monitor clinical course closely. MMODL / IJN: [id number] /
[2019-12-11 02:54] LABS: Glucose,Whole Blood 162 mg/dL (75-99)
[2019-12-11] MEDS: LEVOTHYROXINE 100 MCG TAB PO SCH (05:28)
[2019-12-11 07:22] LABS: Glucose,Whole Blood 74 mg/dL (75-99)
[2019-12-11] MEDS: ALBUTEROL HFA INHALER INHALATION PRN ×2 (07:48→11:52)
[2019-12-11] MEDS: INSULIN ASPART (NovoLOG) 100 UNIT/ML VIAL SQ SCH ×4 (08:04→20:06)
[2019-12-11] MEDS: methylPREDNISolone 4 MG TAB TAPER PO SCH (08:11)
[2019-12-11] MEDS: amLODIPine 5 MG TAB PO SCH ×2 (08:12→20:25)
[2019-12-11] MEDS: PANTOPRAZOLE 40 MG TABLET PO SCH (08:12)
[2019-12-11] MEDS: METOPROLOL TARTRATE 25 MG TAB PO SCH ×2 (08:12→20:25)
[2019-12-11] MEDS: RIVAROXABAN 20 MG TAB PO SCH (08:12)
[2019-12-11] MEDS: cloNIDine HCL 0.2 MG TAB PO SCH ×2 (08:12→20:25)
[2019-12-11] MEDS: ZINC SULFATE 220 MG CAP PO SCH (08:12)
[2019-12-11] MEDS: ASPIRIN 81 MG PO SCH (08:12)
[2019-12-11 11:22] LABS: Glucose,Whole Blood 114 mg/dL (75-99)
--- NOTE | 2019-12-11 11:23 | P.PN ---
Subjective Progress Note Date: 12/11/19 Principal diagnosis: Acute covid 19 pneumonia and acute hypoxic respiratory failure, secondary to pneumonia and ARDS This is a 74-year-old -[place] female patient who lives in [place]. The patient has history of atrial fibrillation and she has been maintained on Xarelto on long-term basis. The patient felt febrile and had increased cough approximately a week ago. She end up going to [facility] where she was tested and she was confirmed to have positive: 19 infection. The patient was discharged home. However, as the patient became more short of b reath and her cough that is worse, the patient presented to ED department at [facility] where she was evaluated and she was placed on high flow oxygen because of her ongoing hypoxemia. The patient's pulse ox apparently was in the low 80s and she was given supplemental oxygen including 100% nonrebreather facemask. The patient got transferred to us for further monitoring and treatment. The patient's white cell count was at 4.4 at time of admission and the patient had a lymphopenia with a lymphocyte level of 0.7. Hemoglobin was at 13.3. Platelet count was 222, LFTs are unremarkable, the troponin was negative, CRP was 122, LDH was 548, ferritin level was 723, CPK was 156 and the lactic acid level was 1.6. Chest x-ray showed bilateral pulmonary infiltrates interstitial changes bilaterally right more than left more so in the lung bases bilaterally. Clinically, despite hypoxemia, the patient seems to be quite stable and she is struggling with her breathing. She is not using some ecchymosis of breathing. She is currently on high flow oxygen at 10 L in addition to 100% on a beta facemasks and pulse ox is around 87-90%. No nausea. No vomiting. No altered mentation. No chest pain. Her cardiac rhythm is still in atrial fibrillation. The patient was started on Plaquenil. She is an ex- smoker. She has history of COPD and she has been maintained on Stiolto on outpatient basis. On 12/01/2019 and seeing this patient for a follow-up. As mentioned earlier the patient was Hospital as for an acute Covid 19 pneumonia. The patient was on 100% nonrebreather facemask. Yesterday evening, the patient's condition decompensated. As such, the patient had to be intubated and placed on a mechanical ventilator. This was done by [employer] and intubation process was successful. This morning the patient is being seen for a follow-up. The patient currently is on assist-control mode rate of 20 with tidal volume of 350 and FiO2 of 40% with a PEEP of 15. The patient is on propofol which is running at 75 g per KG pigmented and fentanyl drip is running in 1 g per KG per hour. Levothroid has also be used at a dose of 0.04 g per KG pigmented for hemodynamic support. The patient will be started on enteral feeding for nutrition support. Do not lung cancer and a triple-lumen cath was also inserted. Note that the patient is afebrile today. The patient had a T-max of 99.9. The LDH still elevated at 1140. The d-dimer is at 1.19. Blood gases from today shows a pH of 7.36 with a pCO2 of 42 and pO2 of 82. Chest x-ray shows interval insertion of the ET tube and there is bilateral basilar reticular nodular infiltrates and some increased infiltration of the upper lobes bilaterally. The patient's net fluid balance is +1.8 L over the past 24 hours. She'll be started on enteral feeding for nutritional support. She is already on a combination of zinc sulfate and Plaquenil. She was also maintained on anticoagulation with Xarelto regarding her chronic atrial fibrillation. On 12/02/2019, the patient remains intubated on a mechanical ventilator. This morning, the patient is sedated with propofol of 75 mcg/kg per minute and fentanyl at all micrograms per kilogram per hour. The patient remains intubated on mechanical ventilator. The patient is an assist-control mode rate of 20 with tidal volume of 350 and FiO2 of 50% with a PEEP of 15. The patient's chest x- ray shows some limited infiltration of the lung bases along with some scattered bibasilar groundglass and reticulocyte another pulmonary infiltrates. The patient is producing adequate amount of urine output. Norepinephrine infusion is running at a low dose of 0.02 g per KG per minute. The patient developed a lower blood pressure of this pressors and the urine output are also drop. The neck fluid balance is positive troponin 9 L over the past 24 hours. No documented fever. The blood gases from today showed a pH of 7.38 with a pCO2 of 41 and pO2 of 132. The patient's LDH today's 1087 and the 50s up to 578 and the CRP level is at 300. LFTs remain nonelevated with an AST of 51 ALT of 17. Renal function is stable with a creatinine of 0.7. No significant leukocytosis. The patient has underlying lymphopenia. Enteral feeding will be started on her for nutritional support. Echocardiogram is to follow. On 12/03/2019, I'm seeing this patient for a follow-up. Clinically signific antly since her the same compared to yesterday. She is sedated on propofol at the rate of 75 mcg/kg per minute and the patient is also on fentanyl at 1 mcg/kg/h. She is requiring a lot of stresses in her urine output is very much dependent that pressor. She is on norepinephrine infusion at the rate of 0.03 units per kilogram per minute. And the patient's is on a normal saline infusion at the rate of 10 mL an hour. Her net fluid balance is +0.9 L over the past 24 hours. The patient's is an assist-control mode at the rate of 20 with tidal volume of 350 and FiO2 of 40% with a PEEP of 12. Chest x-ray findings are essentially the same and unchanged compared to yesterday. The blood gases from today showed a pH of 7.44 with a pCO2 of 40 and pO2 of 67 and this was done and FiO2 of 40%. Peak airway pressure is 31. Plateau airway pressure is 27. The CRP level is at 387 which is higher compared to yesterday. The LDH level is 925 which is lower compared to yesterday. Creatinine is at 0.5. TPN is at 16. The patient is afebrile for now. The patient remains on a combination of Plaquenil and zinc sulfate. The patient is also on IV Rocephin as an empiric antibiotic coverage. No other significant events otherwise for now. She is tolerating her tube feeds which is running at the rate of 27 mL an hour. On 12/04/2019 the patient is being seen for a follow-up. She is a case of Covid 19 pneumonia/respiratory failure requiring intubation mechanical ventilation. This morning, the patient remains sedated with propofol running at 50 g and fentanyl running at 1 mcg/kg/h. Chest x-ray findings show some improved aeration of the left lung base. ET tube is in a good location. The patient has a left subclavian triple-lumen catheter in place. The patient is an assist- control mode at the rate of 20 with a tidal volume of 350 and FiO2 of 40% with a PEEP of 12. The PF ratio is 154. The peak airway pressure is 29. Static pressure is 26. The LDH level is at 880, CPK is 251, CRP is a 61, and the patient has elevated d-dimer of 4.97. Noted the patient is or the on anticoag ulation with Xarelto which was given to her for her chronic atrial fibrillation and this was continued. She is tolerating her enteral feeding for support. She is in a positive fluid balance of 1 L. She is afebrile. The patient has no leukocytosis. Function is stable with a creatinine of 0.5 with a BUN of 21. Electrodes are all within normal limits. Enterofeeding is being provided at the rate of 27 mL an hour. She remains on Plaquenil. IV Solu-Medrol was added. She is receiving IV Solu Medrol 4 mg every 12 hours. She is on empiric antibiotic coverage with Rocephin. Pressor medications are unchanged. She is on normal saline at the rate of 20 mL an hour. Reevaluated today on 12/05/19, patient remains intubated and mechanically ventilated, her ventilator settings are assist control rate of 20 tidal volume of 350 FiO2 40%, and the PEEP was brought to 8 from 11. ABG showed a pO2 of 79 pCO2 of 42 pH of 7.45. Her peak airway pressure is 30 left toe pressure is 25. Chest x-ray continues to show by basilar infiltrates. Patient remains on fentanyl at 1 mcg/kg/h, propofol at 50 mcg/kg/m, norepinephrine at 0.005 mcg/kg/m. Receiving Plaquenil, zinc, Solu-Medrol, and ceftriaxone. Markers including ferritin is 460, LDH is a 22, C-reactive protein is 170 liver enzymes are normal. Patient remains on enteral feeding. Remains on Xarelto 4 history of chronic atrial fibrillation. Renal functioning is normal. Electrodes lites are normal. IV fluid rate remained the same. Reevaluated today on 12/04 Reevaluated today on 12/06/19, remains intubated, mechanically ventilated. Her v entilator settings are assist control rate of 20 tidal volume of 350 FiO2 is 40%, PEEP is 8. Patient is on propofol at 20 mcg/kg/m, she is also on fentanyl at a very low dose, based on the ABG, no vent changes were made. Chest x-ray continues to show basilar infiltrates. Not much of a change in her overall chest x-ray appearance. ABG today showed a pO2 of 86 pCO2 of 38 pH of 7.49. CBC is relatively normal. Basic metabolic profile is normal. Inflammatory markers are improved ferritin is 4:15, C-reactive protein is 73 LDH is 821. Patient remains on enteral feeding. And tolerating that quite well. Patient was reevaluated today on 12/07/19, remains in the ICU, on mechanical ventilation, her sedatives have been on hold since yesterday, however at night she was given Dilaudid and given Ativan for mild anxiety on mechanical ventilation. Patient seems to be awake today, following simple instructions. Wiggling her toes, moving her arms, and seems to comprehend what's going on. Her ventilator settings are assist control rate of 20 tidal volume of 350 FiO2 of 40%, and PEEP was 8. Patient remains on clevidipine 3 mg/h, and her IV fluid is 0.9 normal saline at 40 mL per hour. After evaluating the patient, and evaluating her chest x-ray, which is basically unchanged compared to yesterday, continues to have some perihilar and basilar infiltrates. No change compared to yesterday. I recommended patient to be placed on a viral of pressure support of 8 and CPAP of 5, and if tolerated the patient could be weaned and extubated. This was done, follow-up ABG after 1 hour of pressure support and CPAP showed a pO2 of 98 pCO2 of 33 and pH of 7.51. Hence I recommended stopping all her narcotics and sedatives, and recommended extubating the patient to a nasal cannula. Reevaluated today on 12/08/19, patient remains in the ICU, she was extubated, and she tolerated the extubation well. She is now on 5 L nasal cannula, O2 saturation is 100%. Remains on clevidipine for elevated blood pressure at 6 mg per hour. Hence we'll switch the patient to oral medications for elevated blood pressure. She has been in sinus tachycardia rate of 105. Patient feels generally weak, however she is not in any distress. CBC is relatively normal d- dimer is elevated at 7.69 electrolytes and renal profile are normal inflammatory markers remain high including ferritin of 341 LDH of 1398 and C-reactive protein is 33.5. Chest x-ray continues to show by basilar infiltrates basically about the same. Compared to yesterday. Reevaluated today on 12/09/19, patient has tolerated extubation for the 2 days, she is now on 3 L nasal cannula, and her O2 saturation is 96%. Chest x-ray continues to show slight improvement with minimal infiltrate in the left lower lobe. Labs including CBC and basic metabolic profile renal profile are normal. Patient is comfortable, in no distress. Hence I plan to transfer the patient out of the ICU to a regular medical floor. Her blood pressure was addressed by placing the patient on oral medications, and she is now off clevidipine. The patient is seen today 12/10/2019 in follow-up on the regular medical floor. She is currently awake and alert in no acute distress. Resting fairly comfortably in bed. She is maintaining O2 saturation in the 90s on 2 L/m per nasal cannula. She's afebrile. Hemodynamically stable. Sputum culture reveals no growth. White count 5.1. Hemoglobin 12.3. D-dimer 6.00. Sodium 141. Potassium 4.1. Creatinine 0.62. LDH 1221. CK 156. C-reactive protein 19.2. She is anticoagulated with Xarelto. She's completed her course of hydroxychloroquine. Remains on a Medrol Dosepak. Remains on zinc. The patient is seen today 12/11/2019 and follow-up on the regular medical floor. She remains alert, awake in no acute distress. She is maintaining O2 saturations in the 90s on 2 L/m per nasal cannula. She's remained afebrile. Hemodynamically stable. She is anticoagulated with Xarelto. She remains on zinc. Remains on a Medrol Dosepak. Objective - Vital Signs Vital signs: Vital Signs Temp 98.4 F 12/11/19 11:10 Pulse 63 12/11/19 11:10 Resp 18 12/11/19 11:10 BP 107/65 12/11/19 11:10 Pulse Ox 93 L 12/11/19 11:10 Intake & Output 12/10/19 12/11/19 12/11/19 18:59 06:59 18:59 Intake Total 320 Output Total 600 650 Balance -600 -330 Weight 72.1 kg Intake: IV 320 Sodium Chloride 0.9% 1, 320 000 ml @ 20 mls/hr IV . Q24H [facility] Rx#:[id number] Output: Urine 600 650 Other: Voiding Method Indwelling Catheter Indwelling Catheter Indwelling Catheter ABP, PAP, CO, CI - Last Documented Arterial Blood Pressure 149/58 - Exam GENERAL EXAM: Alert, pleasant 74-year-old female patient, on 2 L nasal cannula, comfortable in no apparent distress. HEAD: Normocephalic. EYES: Normal reaction of pupils, equal size. NOSE: Clear with pink turbinates. THROAT: Poor dentition. Loose teeth. No erythema or exudates. NECK: No masses, no JVD. CHEST: No chest wall deformity. LUNGS: Equal air entry with basilar crackles. CVS: S1 and S2 normal with no audible murmur, irregular rhythm. ABDOMEN: No hepatosplenomegaly, normal bowel sounds, no guarding or rigidity. SPINE: No scoliosis or deformity SKIN: No rashes CENTRAL NERVOUS SYSTEM: No focal deficits, tone is normal in all 4 extremities. EXTREMITIES: There is no peripheral edema. No clubbing, no cyanosis. Peripheral pulses are intact. - Labs CBC & Chem 7: 12/10/19 08:46 12/10/19 08:46 Labs: Abnormal Lab Results - Last 24 Hours (Table) 12/10/19 12/10/19 12/11/19 Range/Units 16:20 20:52 02:50 POC Glucose (mg/dL) 106 H 122 H 162 H (75-99) mg/dL 12/11/19 Range/Units 07:01 POC Glucose (mg/dL) 74 L (75-99) mg/dL Assessment and Plan Assessment: Impression: Acute hypoxic respiratory failure secondary to pneumonia, significantly improved and the patient was extubated on 12/07/19 Acute covid 19 pneumonitis ARDS secondary to pneumonitis as above History of COPD History of hypertension Chronic atrial fibrillation, on Xarelto Septic shock upon presentation, resolved. Acute gram-negative urinary tract infection with Klebsiella pneumoniae Loose bottom front teeth, could be related to patient had been biting hard on the endotracheal tube when she was intubated. May consider dental evaluation down the line. Plan: The patient was seen and evaluated by Dr. Hodgson She is improved from the pulmonary standpoint Continue current treatment plan PT/OT Discharge planning in place Probable discharge in the a.m. We'll continue to follow I, the cosigning physician, performed a history & physical examination of the patient. Lungs sounds with basilar crackles Maintaining good O2 saturations in the 90s on 2 L/m per nasal cannula. I discussed the assessment and plan of care with my nurse practitioner, Sena Patel. I attest to the above note as dictated by her.
[2019-12-11 16:42] LABS: Glucose,Whole Blood 130 mg/dL (75-99)
--- NOTE | 2019-12-11 17:56 | P.PN ---
Subjective Progress Note Date: 12/11/19 Principal diagnosis: COVID pneumonia Patient is a 74-year-old -[place] female with a past medical history of hypertension, mild COPD, and paroxysmal atrial fibrillation on Xarelto who presented to [facility] emergency department with complaints of coughing, headache, and shortness of breath. She was transferred here due to the covert relief effort. Initial evaluation consistent with atypical or viral pneumonia with probable covert 19. She had testing done at [facility] which was positive for COVID-19. She was started on hydroxychloroquine, zinc, and as needed Tylen ol. Pulmonary was consulted. Her O2 requirement continued to increase. Chest x-ray consistent with pneumonia/ARDS picture. We had a long discussion she was okay with elective intubation. She was intubated on the afternoon of 11/30/2019. She did require propofol, fentanyl, norepinephrine, and antibiotics. She had not made significant progress by 12/03/2019 and continued to spike fevers. She was s tarted on Solumedrol on 12/04/2019. She was continued on Xarelto for elevated d- dimer along with her history of chronic atrial fibrillation. Her sedation was weaned from December 05 to December 06. She did require clevidipine drip for elevated blood pressures. She was extubated on 12/08/2019. Her respiratory status continued to improve and her blood pressure was maintained on oral antihypertensive medication. She was transferred out of ICU on 12/09/2019. Patient was seen and examined. She is currently on 2L nasal cannula saturating mid-90s. She has no complaints. She denies any chest pain, shortness of breath or palpitations. Complaining about her teeth that was damaged during the process of intubation. As per nursing reports, appears as if patient was biting down on the ET tube. Objective - Vital Signs Vital signs: Vital Signs Temp 98.9 F 12/11/19 15:00 Pulse 63 12/11/19 15:00 Resp 18 12/11/19 15:00 BP 102/60 12/11/19 15:00 Pulse Ox 92 L 12/11/19 15:00 Intake & Output 12/10/19 12/11/19 12/11/19 18:59 06:59 18:59 Intake Total 320 Output Total 600 650 750 Balance -600 -330 -750 Weight 72.1 kg Intake: IV 320 Sodium Chloride 0.9% 1, 320 000 ml @ 20 mls/hr IV . Q24H [facility] Rx#:[id number] Output: Urine 600 650 750 Other: Voiding Method Indwelling Catheter Indwelling Catheter Indwelling Catheter ABP, PAP, CO, CI - Last Documented Arterial Blood Pressure 149/58 - Exam General: [non toxic], [no distress, on room air speaking in full sentences], [appears at stated age] Derm: [warm], [dry] Head: [atraumatic], [normocephalic], [symmetric], [poor dentition] Eyes: [EOMI], [no lid lag], [anicteric sclera] Mouth: [no lip lesion], [mucus membranes moist] Cardiovascular: [S1S2 reg], [no murmur], [positive DP pulse bilateral], Lungs: [Decrease breath sounds bilateral], [no rhonchi, no rales] , [no accessory muscle use] Abdominal: [soft], [ nontender to palpation], [no guarding], [no appreciable organomegaly] Ext: [no gross muscle atrophy], [no edema], [no contractures] Neuro: [No FND] Psych: [Alert and oriented 3, speaking freely] - Labs CBC & Chem 7: 12/10/19 08:46 12/10/19 08:46 Labs: Abnormal Lab Results - Last 24 Hours (Table) 12/10/19 12/11/19 12/11/19 Range/Units 20:52 02:50 07:01 POC Glucose (mg/dL) 122 H 162 H 74 L (75-99) mg/dL 12/11/19 Range/Units 11:20 POC Glucose (mg/dL) 114 H (75-99) mg/dL Assessment and Plan Assessment: Bilateral pneumonia secondary to COVID 19 with ARDS and acute hypoxic respiratory failure requiring intubation -Completed course of hydroxychloroquine, steroids initiated by pulmonary -Symbicort, albuterol inhaler -Patient extubated 12/07/2019. -Trend d-dimer, LDH, CRP, CPK -Follow chest x-ray until clear -Pulmonary critical care recommendations appreciated -Follow QT interval -Gentle IV fluids Dental pain -Traumatic injury from intubation. Needs dental follow-up in the outpatient setting. Klebsiella UTI - Completed course of Rocephin for 7 days. Elevated d-dimer - Possible microthrombi due to above infection. Patient is on Xarelto which will be continued due to history of chronic A. fib. Hypothyroidism -Synthroid Hypertension -Patient now off the clevidipine drip, Amlodipine and Metoprolol continued and clonidine added along with hydralazine IV as needed. Paroxysmal atrial fibrillation -Metoprolol by mouth for rate control -Continue with Xarelto COPD without acute exacerbation -Bronchodilators Dyslipidemia -Statin therapy DVT prophylaxis: Xarelto Discussed with: Patient Anticipated discharge: undetermined Anticipated discharge place: undetermined A total of 35 minutes was spent on the care of this complex patient more than 50% of the time was spent in counseling and care coordination.
[2019-12-11 20:06] LABS: Glucose,Whole Blood 115 mg/dL (75-99)
--- NOTE | 2019-12-11 22:45 | PN ---
PROGRESS NOTE DATE OF SERVICE: 12/11/2019 REASON FOR FOLLOWUP: Acute COVID-19 pneumonia. INTERVAL HISTORY: The patient is currently afebrile. She has been breathing comfortably. Currently down to 2 L cannula. Denies having any chest pain. Occasional cough. No nausea, no vomiting. No abdominal pain. No diarrhea. PHYSICAL EXAMINATION: Blood pressure 100/65 with a pulse of 68, temperature 98.1. She is 98% on 2 L nasal cannula. General description is an elderly female lying in bed in no distress. Respiratory system: Unlabored breathing, decreased breath sounds in the base, with no wheeze. Heart S1, S2. Regular rate and rhythm. Abdomen soft, no tenderness. LABS: Hemoglobin is 12.8, white count 5.1, lymphopenia resolved. BUN of 23, creatinine 0.62. DIAGNOSTIC IMPRESSION/PLAN: Patient with acute COVID-19 pneumonia. Patient has completed her Plaquenil therapy, currently on tapering course of steroids and zinc, to continue and monitor clinical course closely. MMODL / IJN: [id number] /
[2019-12-12 02:11] LABS: Glucose,Whole Blood 102 mg/dL (75-99)
[2019-12-12] MEDS: LEVOTHYROXINE 100 MCG TAB PO SCH (05:45)
[2019-12-12 06:59] LABS: Glucose,Whole Blood 85 mg/dL (75-99)
[2019-12-12] MEDS: INSULIN ASPART (NovoLOG) 100 UNIT/ML VIAL SQ SCH (07:31)
[2019-12-12] MEDS: SODIUM CHLORIDE 0.9% 1,000 ML IV SCH ×3 (07:31→21:16)
[2019-12-12] MEDS: ASPIRIN 81 MG PO SCH (08:44)
[2019-12-12] MEDS: METOPROLOL TARTRATE 25 MG TAB PO SCH ×2 (08:44→21:15)
[2019-12-12] MEDS: ZINC SULFATE 220 MG CAP PO SCH (08:44)
[2019-12-12] MEDS: cloNIDine HCL 0.2 MG TAB PO SCH ×2 (08:44→21:15)
[2019-12-12] MEDS: methylPREDNISolone 4 MG TAB TAPER PO SCH (08:44)
[2019-12-12] MEDS: amLODIPine 5 MG TAB PO SCH ×2 (08:44→21:15)
[2019-12-12] MEDS: RIVAROXABAN 20 MG TAB PO SCH (08:44)
[2019-12-12] MEDS: PANTOPRAZOLE 40 MG TABLET PO SCH (08:44)
--- NOTE | 2019-12-12 12:37 | P.PN ---
Subjective Progress Note Date: 12/12/19 Principal diagnosis: Acute covid 19 pneumonia and acute hypoxic respiratory failure, secondary to pneumonia and ARDS This is a 74-year-old -[place] female patient who lives in [place]. The patient has history of atrial fibrillation and she has been maintained on Xarelto on long-term basis. The patient felt febrile and had increased cough approximately a week ago. She end up going to [facility] where she was tested and she was confirmed to have positive: 19 infection. The patient was discharged home. However, as the patient became more short of b reath and her cough that is worse, the patient presented to ED department at [facility] where she was evaluated and she was placed on high flow oxygen because of her ongoing hypoxemia. The patient's pulse ox apparently was in the low 80s and she was given supplemental oxygen including 100% nonrebreather facemask. The patient got transferred to us for further monitoring and treatment. The patient's white cell count was at 4.4 at time of admission and the patient had a lymphopenia with a lymphocyte level of 0.7. Hemoglobin was at 13.3. Platelet count was 222, LFTs are unremarkable, the troponin was negative, CRP was 122, LDH was 548, ferritin level was 723, CPK was 156 and the lactic acid level was 1.6. Chest x-ray showed bilateral pulmonary infiltrates interstitial changes bilaterally right more than left more so in the lung bases bilaterally. Clinically, despite hypoxemia, the patient seems to be quite stable and she is struggling with her breathing. She is not using some ecchymosis of breathing. She is currently on high flow oxygen at 10 L in addition to 100% on a beta facemasks and pulse ox is around 87-90%. No nausea. No vomiting. No altered mentation. No chest pain. Her cardiac rhythm is still in atrial fibrillation. The patient was started on Plaquenil. She is an ex- smoker. She has history of COPD and she has been maintained on Stiolto on outpatient basis. On 12/01/2019 and seeing this patient for a follow-up. As mentioned earlier the patient was Hospital as for an acute Covid 19 pneumonia. The patient was on 100% nonrebreather facemask. Yesterday evening, the patient's condition decompensated. As such, the patient had to be intubated and placed on a mechanical ventilator. This was done by GUEST EXPERIENCE MANAGER and intubation process was successful. This morning the patient is being seen for a follow-up. The patient currently is on assist-control mode rate of 20 with tidal volume of 350 and FiO2 of 40% with a PEEP of 15. The patient is on propofol which is running at 75 g per KG pigmented and fentanyl drip is running in 1 g per KG per hour. Levothroid has also be used at a dose of 0.04 g per KG pigmented for hemodynamic support. The patient will be started on enteral feeding for nutrition support. Do not lung cancer and a triple-lumen cath was also inserted. Note that the patient is afebrile today. The patient had a T-max of 99.9. The LDH still elevated at 1140. The d-dimer is at 1.19. Blood gases from today shows a pH of 7.36 with a pCO2 of 42 and pO2 of 82. Chest x-ray shows interval insertion of the ET tube and there is bilateral basilar reticular nodular infiltrates and some increased infiltration of the upper lobes bilaterally. The patient's net fluid balance is +1.8 L over the past 24 hours. She'll be started on enteral feeding for nutritional support. She is already on a combination of zinc sulfate and Plaquenil. She was also maintained on anticoagulation with Xarelto regarding her chronic atrial fibrillation. On 12/02/2019, the patient remains intubated on a mechanical ventilator. This morning, the patient is sedated with propofol of 75 mcg/kg per minute and fentanyl at all micrograms per kilogram per hour. The patient remains intubated on mechanical ventilator. The patient is an assist-control mode rate of 20 with tidal volume of 350 and FiO2 of 50% with a PEEP of 15. The patient's chest x- ray shows some limited infiltration of the lung bases along with some scattered bibasilar groundglass and reticulocyte another pulmonary infiltrates. The patient is producing adequate amount of urine output. Norepinephrine infusion is running at a low dose of 0.02 g per KG per minute. The patient developed a lower blood pressure of this pressors and the urine output are also drop. The neck fluid balance is positive troponin 9 L over the past 24 hours. No documented fever. The blood gases from today showed a pH of 7.38 with a pCO2 of 41 and pO2 of 132. The patient's LDH today's 1087 and the 50s up to 578 and the CRP level is at 300. LFTs remain nonelevated with an AST of 51 ALT of 17. Renal function is stable with a creatinine of 0.7. No significant leukocytosis. The patient has underlying lymphopenia. Enteral feeding will be started on her for nutritional support. Echocardiogram is to follow. On 12/03/2019, I'm seeing this patient for a follow-up. Clinically signific antly since her the same compared to yesterday. She is sedated on propofol at the rate of 75 mcg/kg per minute and the patient is also on fentanyl at 1 mcg/kg/h. She is requiring a lot of stresses in her urine output is very much dependent that pressor. She is on norepinephrine infusion at the rate of 0.03 units per kilogram per minute. And the patient's is on a normal saline infusion at the rate of 10 mL an hour. Her net fluid balance is +0.9 L over the past 24 hours. The patient's is an assist-control mode at the rate of 20 with tidal volume of 350 and FiO2 of 40% with a PEEP of 12. Chest x-ray findings are essentially the same and unchanged compared to yesterday. The blood gases from today showed a pH of 7.44 with a pCO2 of 40 and pO2 of 67 and this was done and FiO2 of 40%. Peak airway pressure is 31. Plateau airway pressure is 27. The CRP level is at 387 which is higher compared to yesterday. The LDH level is 925 which is lower compared to yesterday. Creatinine is at 0.5. TPN is at 16. The patient is afebrile for now. The patient remains on a combination of Plaquenil and zinc sulfate. The patient is also on IV Rocephin as an empiric antibiotic coverage. No other significant events otherwise for now. She is tolerating her tube feeds which is running at the rate of 27 mL an hour. On 12/04/2019 the patient is being seen for a follow-up. She is a case of Covid 19 pneumonia/respiratory failure requiring intubation mechanical ventilation. This morning, the patient remains sedated with propofol running at 50 g and fentanyl running at 1 mcg/kg/h. Chest x-ray findings show some improved aeration of the left lung base. ET tube is in a good location. The patient has a left subclavian triple-lumen catheter in place. The patient is an assist- control mode at the rate of 20 with a tidal volume of 350 and FiO2 of 40% with a PEEP of 12. The PF ratio is 154. The peak airway pressure is 29. Static pressure is 26. The LDH level is at 880, CPK is 251, CRP is a 61, and the patient has elevated d-dimer of 4.97. Noted the patient is or the on anticoag ulation with Xarelto which was given to her for her chronic atrial fibrillation and this was continued. She is tolerating her enteral feeding for support. She is in a positive fluid balance of 1 L. She is afebrile. The patient has no leukocytosis. Function is stable with a creatinine of 0.5 with a BUN of 21. Electrodes are all within normal limits. Enterofeeding is being provided at the rate of 27 mL an hour. She remains on Plaquenil. IV Solu-Medrol was added. She is receiving IV Solu Medrol 4 mg every 12 hours. She is on empiric antibiotic coverage with Rocephin. Pressor medications are unchanged. She is on normal saline at the rate of 20 mL an hour. Reevaluated today on 12/05/19, patient remains intubated and mechanically ventilated, her ventilator settings are assist control rate of 20 tidal volume of 350 FiO2 40%, and the PEEP was brought to 8 from 11. ABG showed a pO2 of 79 pCO2 of 42 pH of 7.45. Her peak airway pressure is 30 left toe pressure is 25. Chest x-ray continues to show by basilar infiltrates. Patient remains on fentanyl at 1 mcg/kg/h, propofol at 50 mcg/kg/m, norepinephrine at 0.005 mcg/kg/m. Receiving Plaquenil, zinc, Solu-Medrol, and ceftriaxone. Markers including ferritin is 460, LDH is a 22, C-reactive protein is 170 liver enzymes are normal. Patient remains on enteral feeding. Remains on Xarelto 4 history of chronic atrial fibrillation. Renal functioning is normal. Electrodes lites are normal. IV fluid rate remained the same. Reevaluated today on 12/04 Reevaluated today on 12/06/19, remains intubated, mechanically ventilated. Her v entilator settings are assist control rate of 20 tidal volume of 350 FiO2 is 40%, PEEP is 8. Patient is on propofol at 20 mcg/kg/m, she is also on fentanyl at a very low dose, based on the ABG, no vent changes were made. Chest x-ray continues to show basilar infiltrates. Not much of a change in her overall chest x-ray appearance. ABG today showed a pO2 of 86 pCO2 of 38 pH of 7.49. CBC is relatively normal. Basic metabolic profile is normal. Inflammatory markers are improved ferritin is 4:15, C-reactive protein is 73 LDH is 821. Patient remains on enteral feeding. And tolerating that quite well. Patient was reevaluated today on 12/07/19, remains in the ICU, on mechanical ventilation, her sedatives have been on hold since yesterday, however at night she was given Dilaudid and given Ativan for mild anxiety on mechanical ventilation. Patient seems to be awake today, following simple instructions. Wiggling her toes, moving her arms, and seems to comprehend what's going on. Her ventilator settings are assist control rate of 20 tidal volume of 350 FiO2 of 40%, and PEEP was 8. Patient remains on clevidipine 3 mg/h, and her IV fluid is 0.9 normal saline at 40 mL per hour. After evaluating the patient, and evaluating her chest x-ray, which is basically unchanged compared to yesterday, continues to have some perihilar and basilar infiltrates. No change compared to yesterday. I recommended patient to be placed on a viral of pressure support of 8 and CPAP of 5, and if tolerated the patient could be weaned and extubated. This was done, follow-up ABG after 1 hour of pressure support and CPAP showed a pO2 of 98 pCO2 of 33 and pH of 7.51. Hence I recommended stopping all her narcotics and sedatives, and recommended extubating the patient to a nasal cannula. Reevaluated today on 12/08/19, patient remains in the ICU, she was extubated, and she tolerated the extubation well. She is now on 5 L nasal cannula, O2 saturation is 100%. Remains on clevidipine for elevated blood pressure at 6 mg per hour. Hence we'll switch the patient to oral medications for elevated blood pressure. She has been in sinus tachycardia rate of 105. Patient feels generally weak, however she is not in any distress. CBC is relatively normal d- dimer is elevated at 7.69 electrolytes and renal profile are normal inflammatory markers remain high including ferritin of 341 LDH of 1398 and C-reactive protein is 33.5. Chest x-ray continues to show by basilar infiltrates basically about the same. Compared to yesterday. Reevaluated today on 12/09/19, patient has tolerated extubation for the 2 days, she is now on 3 L nasal cannula, and her O2 saturation is 96%. Chest x-ray continues to show slight improvement with minimal infiltrate in the left lower lobe. Labs including CBC and basic metabolic profile renal profile are normal. Patient is comfortable, in no distress. Hence I plan to transfer the patient out of the ICU to a regular medical floor. Her blood pressure was addressed by placing the patient on oral medications, and she is now off clevidipine. The patient is seen today 12/10/2019 in follow-up on the regular medical floor. She is currently awake and alert in no acute distress. Resting fairly comfortably in bed. She is maintaining O2 saturation in the 90s on 2 L/m per nasal cannula. She's afebrile. Hemodynamically stable. Sputum culture reveals no growth. White count 5.1. Hemoglobin 12.3. D-dimer 6.00. Sodium 141. Potassium 4.1. Creatinine 0.62. LDH 1221. CK 156. C-reactive protein 19.2. She is anticoagulated with Xarelto. She's completed her course of hydroxychloroquine. Remains on a Medrol Dosepak. Remains on zinc. The patient is seen today 12/11/2019 and follow-up on the regular medical floor. She remains alert, awake in no acute distress. She is maintaining O2 saturations in the 90s on 2 L/m per nasal cannula. She's remained afebrile. Hemodynamically stable. She is anticoagulated with Xarelto. She remains on zinc. Remains on a Medrol Dosepak. The patient was seen today 12/12/2023 follow-up on the regular medical floor. She is sitting up in a chair in no acute distress. She is currently on 2 L nasal cannula with oxygen saturation 94%. Remains afebrile. Hemodynamically stable. Denies any pain or worsening shortness of breath. No labs or x-rays completed today. Remains on Medrol dose pack. Objective - Vital Signs Vital signs: Vital Signs Temp 97.8 F 12/12/19 10:57 Pulse 60 12/12/19 10:57 Resp 18 12/12/19 10:57 BP 103/65 12/12/19 10:57 Pulse Ox 94 L 12/12/19 10:57 Intake & Output 12/11/19 12/12/19 12/12/19 18:59 06:59 18:59 Intake Total 320 Output Total 950 250 Balance -950 70 Weight 72 kg Intake: IV 320 Sodium Chloride 0.9% 1, 320 000 ml @ 20 mls/hr IV . Q24H [facility] Rx#:[id number] Output: Urine 950 250 Other: Voiding Method Indwelling Catheter Indwelling Catheter Indwelling Catheter ABP, PAP, CO, CI - Last Documented Arterial Blood Pressure 149/58 - Constitutional Constitutional Comment(s): Sitting up in a chair, appears comfortable General appearance: Present: cooperative, no acute distress - Respiratory Details: Lungs sounds diminished bilaterally. Respirations even, nonlabored. Currently on 2 L nasal cannula with oxygen saturation 94%. - Cardiovascular Details: S1, S2 present. Irregular rate and rhythm. Palpable peripheral pulses bilaterally. No edema present. No calf pain or tenderness noted. - Gastrointestinal Gastrointestinal Comment(s): Abdomen soft, nontender, nondistended. No organomegaly. Active bowel sounds present 4 quadrants. Tolerating diet. - Integumentary Integumentary Comment(s): Skin is warm and dry with evidence of good perfusion - Neurologic Neurologic: Present: CNII-XII intact - Musculoskeletal Musculoskeletal: Present: strength equal bilaterally - Psychiatric Psychiatric: Present: A&O x's 3, appropriate affect, intact judgment & insight - Allied health notes Allied health notes reviewed: nursing - Labs CBC & Chem 7: 12/10/19 08:46 12/10/19 08:46 Labs: Abnormal Lab Results - Last 24 Hours (Table) 12/11/19 12/11/19 12/12/19 Range/Units 16:38 20:05 02:10 POC Glucose (mg/dL) 130 H 115 H 102 H (75-99) mg/dL Assessment and Plan Assessment: Acute hypoxic respiratory failure secondary to pneumonia, significantly improved. The patient was extubated on 12/07/19 and tolerating well Acute covid 19 pneumonitis ARDS secondary to pneumonitis as above History of COPD History of hypertension Chronic atrial fibrillation, on Xarelto Septic shock upon presentation, resolved. Acute gram-negative urinary tract infection with Klebsiella pneumoniae Loose bottom front teeth, could be related to patient had been biting hard on the endotracheal tube when she was intubated. May consider dental evaluation down the line. Plan: The patient was seen and evaluated by Dr. Pressley She continues to improve from the pulmonary standpoint Continue current treatment plan PT/OT Discharge planning in progress May discharge to rehab from pulmonary standpoint We'll continue to follow I, the cosigning physician, performed a history & physical examination of the patient. Lungs sounds are diminished bilaterally. Maintaining good O2 saturations in the 90s on 2 L nasal cannula. I discussed the assessment and plan of care with my nurse practitioner, Kimberley Parker. I attest to the above note as dictated by her. Time with Patient: Greater than 30
[2019-12-12 15:59] VITALS: BMI 29.0
--- NOTE | 2019-12-12 16:04 | PN ---
PROGRESS NOTE DATE OF SERVICE: 12/12/2019 REASON FOR FOLLOWUP: Acute COVID-19 pneumonia. INTERVAL HISTORY: The patient is currently afebrile. The patient is breathing comfortably. The patient denies having any chest pain or shortness of breath. Minimal cough. She has been feeling weak. No nausea. No vomiting or any diarrhea has been reported. PHYSICAL EXAMINATION: Blood pressure 100/65 with a pulse of 68, temperature 97.8. She is 94% on 2 liters nasal cannula. General description is an elderly female up in the chair in no distress. RESPIRATORY SYSTEM: Unlabored breathing. Decreased intensity of breath sounds. No wheeze. HEART: S1, S2. Regular rate and rhythm. ABDOMEN: Soft. No tenderness. LABS: No new labs have been obtained today. DIAGNOSTIC IMPRESSION AND PLAN: 1. Patient with acute COVID-19 pneumonia that has been adequately treated, currently on zinc and tapering course of steroids patient still requiring some supplement oxygen. 2. Klebsiella urinary tract infection. Patient completed antibiotic therapy for the same. MMODL / IJN: [id number] /
[2019-12-13] MEDS: LEVOTHYROXINE 100 MCG TAB PO SCH (05:43)
[2019-12-13 07:00] LABS: Glucose,Whole Blood 113 mg/dL (75-99)
[2019-12-13] MEDS: amLODIPine 5 MG TAB PO SCH (07:04)
[2019-12-13] MEDS: ZINC SULFATE 220 MG CAP PO SCH (07:04)
[2019-12-13] MEDS: ASPIRIN 81 MG PO SCH (07:04)
[2019-12-13] MEDS: methylPREDNISolone 4 MG TAB TAPER PO SCH (07:04)
[2019-12-13] MEDS: PANTOPRAZOLE 40 MG TABLET PO SCH (07:04)
[2019-12-13] MEDS: cloNIDine HCL 0.2 MG TAB PO SCH (07:04)
[2019-12-13] MEDS: METOPROLOL TARTRATE 25 MG TAB PO SCH (07:05)
[2019-12-13] MEDS: RIVAROXABAN 20 MG TAB PO SCH (07:05)
[2019-12-13 08:17] VITALS: BP 112/67; PULSE 56; RESP 17; TEMP 98.1
--- NOTE | 2019-12-13 11:03 | P.PN ---
Subjective Progress Note Date: 12/13/19 On 12/13/2019 patient seen in follow-up on the general medical floor, she sitting up in the chair, in no acute distress, is currently on 2 L of oxygen per nasal cannula, with a pulse ox of 96%, afebrile, denies any cough, denies any worsening dyspnea, she has been working with physical therapy, she is awaiting placement in subacute rehabilitation center. Her recheck Covid 19 on 12/12/2019 and 12/13/2019 have been negative. Anticipate transfer to subacute rehab today, no new chest x-ray today, she has completed a course of Plaquenil, and antibiotics, she remains on Medrol Dosepak, no rhonchi or wheezing, clinically improving, no altered mentation, she sits in the chair speaking on the cell phone with her family members. Patient has completed a course of antibiotics for Klebsiella pneumonia urinary tract infection sputum culture only showed Keli albicans which is likely contamination from the oral cavity Objective - Vital Signs Vital signs: Vital Signs Temp 98.1 F 12/13/19 07:00 Pulse 56 L 12/13/19 07:00 Resp 17 12/13/19 08:00 BP 112/67 12/13/19 07:00 Pulse Ox 96 12/13/19 07:00 Intake & Output 12/12/19 12/13/19 12/13/19 18:59 06:59 18:59 Intake Total 290 50 Balance 290 50 Weight 72 kg 118 kg Intake: IV 240 Sodium Chloride 0.9% 1, 240 000 ml @ 20 mls/hr IV . Q24H [facility] Rx#:[id number] Oral 50 50 Other: Voiding Method Indwelling Catheter Indwelling Catheter # Voids 1 3 ABP, PAP, CO, CI - Last Documented Arterial Blood Pressure 149/58 - Exam GENERAL EXAM: Alert, very pleasant, 74-year-old -Citizen Of [place] female, sitting up in a chair, currently on 2 L of oxygen comfortable in no apparent distress. HEAD: Normocephalic/atraumatic. EYES: Normal reaction of pupils, equal size. Conjunctiva pink, sclera white. NOSE: Clear with pink turbinates. THROAT: No erythema or exudates. NECK: No masses, no JVD, no thyroid enlargement, no adenopathy. CHEST: No chest wall deformity. Symmetrical expansion. LUNGS: Equal air entry with no crackles, wheeze, rhonchi or dullness. CVS: Regular rate and rhythm, normal S1 and S2, no gallops, no murmurs, no rubs ABDOMEN: Soft, nontender. No hepatosplenomegaly, normal bowel sounds, no guarding or rigidity. EXTREMITIES: No clubbing, no edema, no cyanosis, 2+ pulses and upper and lower extremities. MUSCULOSKELETAL: Muscle strength and tone normal. SPINE: No scoliosis or deformity SKIN: No rashes CENTRAL NERVOUS SYSTEM: Alert and oriented -3. No focal deficits, tone is normal in all 4 extremities. PSYCHIATRIC: Alert and oriented -3. Appropriate affect. Intact judgment and insight. - Labs CBC & Chem 7: 12/10/19 08:46 12/10/19 08:46 Labs: Abnormal Lab Results - Last 24 Hours (Table) 12/13/19 Range/Units 06:58 POC Glucose (mg/dL) 113 H (75-99) mg/dL Assessment and Plan Plan: Assessment: Acute hypoxic respiratory failure secondary to pneumonia, significantly improved and the patient was extubated on 12/07/19 Acute covid 19 pneumonitis ARDS secondary to pneumonitis as above History of COPD History of hypertension Chronic atrial fibrillation, on Xarelto Septic shock upon presentation, resolved. Acute gram-negative urinary tract infection with Klebsiella pneumoniae Loose bottom front teeth, could be related to patient had been biting hard on the endotracheal tube when she was intubated. May consider dental evaluation down the line. Plan: Clinically patient continues to improve, no worsening dyspnea, FiO2 is down to 2 L, and home oxygen assessment, her Covid 19 re-testing was done yesterday on 12/12/2019 and 12/13/2019 and both tests came back negative which was necessary to have the patient accepted to subacute rehabilitation center. No fever or chills, no worsening dyspnea, no complaints of cough. Patient is working with physical therapy, no new chest x-ray today, patient has completed a course of antibiotics, and Plaquenil, vomiting perspective she can be considered for discharge to subacute rehab once arrangements are completed I performed a history & physical examination of the patient and discussed their management with my nurse practitioner, Mirian Lr. I reviewed the nurse practitioner's note and agree with the documented findings and plan of care. Lung sounds are positive for diminished breath sounds. The findings and the impression was discussed with the patient. I attest to the documentation by the nurse practitioner. Time with Patient: Less than 30
--- NOTE | 2019-12-13 11:31 | P.PN ---
Subjective Progress Note Date: 12/12/19 Principal diagnosis: COVID pneumonia Patient is a 74-year-old -English female with a past medical history of hypertension, mild COPD, and paroxysmal atrial fibrillation on Xarelto who presented to [facility] [place] emergency department with complaints of coughing, headache, and shortness of breath. She was transferred here due to the covert relief effort. Initial evaluation consistent with atypical or viral pneumonia with probable covert 19. She had testing done at [facility] which was positive for COVID-19. She was started on hydroxychloroquine, zinc, and as needed Tylen ol. Pulmonary was consulted. Her O2 requirement continued to increase. Chest x-ray consistent with pneumonia/ARDS picture. We had a long discussion she was okay with elective intubation. She was intubated on the afternoon of 11/30/2019. She did require propofol, fentanyl, norepinephrine, and antibiotics. She had not made significant progress by 12/03/2019 and continued to spike fevers. She was s tarted on Solumedrol on 12/04/2019. She was continued on Xarelto for elevated d- dimer along with her history of chronic atrial fibrillation. Her sedation was weaned from December 05 to December 06. She did require clevidipine drip for elevated blood pressures. She was extubated on 12/08/2019. Her respiratory status continued to improve and her blood pressure was maintained on oral antihypertensive medication. She was transferred out of ICU on 12/09/2019. Patient examined at bedside initially extremely somnolent but arousable when awake now complaining of severe fatigue. Continues to have her Ponce catheter in today, patient has not been up in diameter with PT as yet. No acute events overnight afebrile Objective - Vital Signs Vital signs: Vital Signs Temp 97.8 F 12/12/19 10:57 Pulse 60 12/12/19 10:57 Resp 18 12/12/19 10:57 BP 103/65 12/12/19 10:57 Pulse Ox 94 L 12/12/19 10:57 Intake & Output 12/11/19 12/12/19 12/12/19 18:59 06:59 18:59 Intake Total 320 Output Total 950 250 Balance -950 70 Weight 72 kg Intake: IV 320 Sodium Chloride 0.9% 1, 320 000 ml @ 20 mls/hr IV . [facility] Rx#:[id number] Output: Urine 950 250 Other: Voiding Method Indwelling Catheter Indwelling Catheter Indwelling Catheter ABP, PAP, CO, CI - Last Documented Arterial Blood Pressure 149/58 - Labs CBC & Chem 7: 12/10/19 08:46 12/10/19 08:46 Labs: Abnormal Lab Results - Last 24 Hours (Table) 12/11/19 12/11/19 12/12/19 Range/Units 16:38 20:05 02:10 POC Glucose (mg/dL) 130 H 115 H 102 H (75-99) mg/dL Assessment and Plan Assessment: Bilateral pneumonia secondary to COVID 19 with ARDS and acute hypoxic respiratory failure requiring intubation -Completed course of hydroxychloroquine, steroids initiated by pulmonary -Symbicort, albuterol inhaler -Patient extubated 12/07/2019. -Trend d-dimer, LDH, CRP, CPK -Follow chest x-ray until clear -Pulmonary critical care recommendations appreciated -Follow QT interval -Gentle IV fluids Plan to repeat Covid testing and if negative have placement from [facility] Dental pain -Traumatic injury from intubation. Needs dental follow-up in the outpatient setting. Klebsiella UTI - Completed course of Rocephin for 7 days. Elevated d-dimer - Possible microthrombi due to above infection. Patient is on Xarelto which will be continued due to history of chronic A. fib. Hypothyroidism -Synthroid Hypertension -Patient now off the clevidipine drip, Amlodipine and Metoprolol continued and clonidine added along with hydralazine IV as needed. Paroxysmal atrial fibrillation -Metoprolol by mouth for rate control -Continue with Xarelto COPD without acute exacerbation -Bronchodilators Dyslipidemia -Statin therapy DVT prophylaxis: Xarelto Discussed with: Patient Anticipated discharge: 1-[address]: undetermined A total of 35 minutes was spent on the care of this complex patient more than 50% of the time was spent in counseling and care coordination.
--- NOTE | 2019-12-13 11:40 | P.DS ---
Providers Date of admission: 11/29/19 20:55 Expected date of discharge: 12/13/19 Attending physician: Margie Nunn DO Consults: 11/29/19 23:17 Consult Physician Routine Consulting Provider: Wanda Blakely Consult Reason/Comments: COVID positive, for plaquinel Do you want consulting provider notified?: Yes Consult Physician Stat Consulting Provider: Bartolo Lagunas Consult Reason/Comments: COVID patient Do you want consulting provider notified?: Already Contacted Primary care physician: Margie Nunn DO Hospital Course: discharge diagnoses Acute hypoxic respiratory failure Acute Covid 19 pneumonitis ARDS Sepsis Klebsiella UTI COPD Essential hypertension Chronic atrial fibrillation on DOAC Hospital course Patient is a 74-year-old -[place] female with a past medical history of hypertension, mild COPD, and paroxysmal atrial fibrillation on Xarelto who presented to [place] emergency department with complaints of coughing, headache, and shortness of breath. She was transferred here due to the covert relief effort. Initial evaluation consistent with atypical or viral pneumonia with probable covert 19. She had testing done at [place] which was positive for COVID-19. She was started on hydroxychloroquine, zinc, and as needed Tylenol. Pulmonary was consulted. Her O2 requirement continued to increase. Chest x-ray consistent with pneumonia/ARDS picture. We had a long discussion she was okay with elective intubation. She was intubated on the afternoon of 11/30/2019. She did require propofol, fentanyl, norepinephrine, and antibiotics. She had not made significant progress by 12/03/2019 and continued to spike fevers. The patient was determined to be septic secondary to acute Covid pneumonia superimposed on a Klebsiella UTI for which she completed her course of antibiotics. She was started on Solumedrol on 12/04/2019. She was continued on Xarelto for elevated d-dimer along with her history of chronic atrial fibrillation. Her sedation was weaned from December 05 to December 06. She did require clevidipine drip for elevated blood pressures. She was extubated on 12/08/2019. Her respiratory status continued to improve and her blood pressure was maintained on oral antihypertensive medication. She was transferred out of ICU on 12/09/2019 and she continued to improve her Ponce catheter was discontinued. She was transitioned to a Medrol Dosepak and she had completed her course of plaquenil and antibiotics. The patient qualified for oxygen after home O2 eval revealed desaturations with exertion down to 83% on RA. Repeat Covid testing was negative and the patient was discharged in stable condition to [facility]. Focused exam Respiratory: clear to auscultation bilaterally, diminished in the bases unlabored on 2 L via nasal cannula Plan - Discharge Summary Discharge Rx Participant: Yes New Discharge Prescriptions: New cloNIDine HCL [Catapres] 0.2 mg PO BID #60 tab Metoprolol Tartrate [Lopressor] 25 mg PO BID #60 tab amLODIPine [Norvasc] 5 mg PO BID #60 tab Continue Ondansetron Odt [Zofran ODT] 8 mg SL Q8H PRN PRN Reason: Nausea And Vomiting Tiotropium Br/Olodaterol HCl [Stiolto Respimat Inhal Brinnon] 2 puff INHALATION RT-DAILY Simvastatin 60 mg PO HS Rivaroxaban [Xarelto] 20 mg PO DAILY Aspirin [Adult Low Dose Aspirin EC] 81 mg PO DAILY Levothyroxine Sodium 100 mcg PO DAILY Discontinued Hydroxychloroquine Sulfate [Plaquenil] 200 mg PO BID Hydrochlorothiazide 12.5 mg PO DAILY Discharge Medication List Aspirin [Adult Low Dose Aspirin EC] 81 mg PO DAILY 11/29/19 [History] Levothyroxine Sodium 100 mcg PO DAILY 11/29/19 [History] Ondansetron Odt [Zofran ODT] 8 mg SL Q8H PRN 11/29/19 [History] Rivaroxaban [Xarelto] 20 mg PO DAILY 11/29/19 [History] Simvastatin 60 mg PO HS 11/29/19 [History] Tiotropium Br/Olodaterol HCl [Stiolto Respimat Inhal Br[place]on] 2 puff INHALATION RT-DAILY 11/29/19 [History] Metoprolol Tartrate [Lopressor] 25 mg PO BID #60 tab 12/13/19 [Rx] amLODIPine [Norvasc] 5 mg PO BID #60 tab 12/13/19 [Rx] cloNIDine HCL [Catapres] 0.2 mg PO BID #60 tab 12/13/19 [Rx] Discharge Disposition: TRANSFER TO [facility]/ON LICENSE OF [facility]
[2019-12-13 12:00] LABS: Glucose,Whole Blood 114 mg/dL (75-99)
--- NOTE | 2019-12-13 16:05 | PN ---
PROGRESS NOTE DATE OF SERVICE: 12/13/2019 REASON FOR FOLLOWUP: COVID-19 pneumonia. INTERVAL HISTORY: The patient is seen on rounds this morning. The patient has been afebrile. She was feeling better. Breathing comfortably. Denies having any chest pain. Occasional cough. No abdominal pain, no diarrhea. PHYSICAL EXAMINATION: Blood pressure 112/67 with a pulse of 56, temperature 98.1, she is 96% on 2 L nasal cannula. General description is an elderly female, up in the bed in no distress. RESPIRATORY SYSTEM: Unlabored breathing. Decreased breath sounds. No wheeze. HEART: S1, S2. Regular rate and rhythm. ABDOMEN: Soft, no tenderness. LABS: No new labs have been obtained today. The patient did have a negative PCR on 12/11 and 12/12. IMPRESSION/PLAN: 1. Patient with acute COVID-19 pneumonia has been adequately treated. No need for any further antibiotic on discharge. 2. Patient with Klebsiella urinary tract infection that has been adequately treated as well. MMODL / IJN: [id number] /
== END 2019-12-13 13:23 | DRG 870 ==
LOC: 2SICU 20:55 → 4SSUR 12-09 15:51
PROVIDERS: ADMIT Internal Medicine; ATTEND Internal Medicine
PROC: 0BH17EZ Insertion of Endotracheal Airway into Trachea, Via Natural or Artificial Opening (ICD-10-PCS; principal; 2019-11-30)
PROC: 5A1955Z Respiratory Ventilation, Greater than 96 Consecutive Hours (ICD-10-PCS; principal; 2019-11-30)
PROC: 4A133J1 Monitoring of Arterial Pulse, Peripheral, Percutaneous Approach (ICD-10-PCS; 2019-12-01)
PROC: 4A133B1 Monitoring of Arterial Pressure, Peripheral, Percutaneous Approach (ICD-10-PCS; 2019-12-01)
PROC: 02HV33Z Insertion of Infusion Device into Superior Vena Cava, Percutaneous Approach (ICD-10-PCS; 2019-12-01)
PROC: 03HY32Z Insertion of Monitoring Device into Upper Artery, Percutaneous Approach (ICD-10-PCS; 2019-12-01)
DX: A41.89 Other specified sepsis (principal); U07.1 COVID-19; J96.01 Acute respiratory failure with hypoxia; J12.89 Other viral pneumonia; R65.21 Severe sepsis with septic shock; J44.0 Chronic obstructive pulmonary disease with (acute) lower respiratory infection; N39.0 Urinary tract infection, site not specified; E87.0 Hyperosmolality and hypernatremia; K08.89 Other specified disorders of teeth and supporting structures; T88.8XXA Other specified complications of surgical and medical care, not elsewhere classified, initial encounter; Y83.8 Other surgical procedures as the cause of abnormal reaction of the patient, or of later complication, without mention of misadventure at the time of the procedure; I48.0 Paroxysmal atrial fibrillation; I10 Essential (primary) hypertension; E78.5 Hyperlipidemia, unspecified; I95.2 Hypotension due to drugs; B96.1 Klebsiella pneumoniae [K. pneumoniae] as the cause of diseases classified elsewhere; F41.9 Anxiety disorder, unspecified; D64.9 Anemia, unspecified; E89.0 Postprocedural hypothyroidism; Z60.2 Problems related to living alone; Z79.899 Other long term (current) drug therapy; Z79.890 Hormone replacement therapy; Z79.82 Long term (current) use of aspirin; Z79.01 Long term (current) use of anticoagulants; Z90.710 Acquired absence of both cervix and uterus; Z98.42 Cataract extraction status, left eye; Z98.41 Cataract extraction status, right eye; Z98.890 Other specified postprocedural states; Z87.891 Personal history of nicotine dependence; Z88.8 Allergy status to other drugs, medicaments and biological substances
CPT/HCPCS: 36600; 71045; 80048; 80053; 81001; 82550; 82565; 82728; 82805; 83520; 83615; 83735; 83880; 84132; 84484; 85025; 85379; 86140; 87070; 87077; 87086; 87186; 87205; 87635; 93306; 94002; 94003; 94640